=== PATIENT | male | born 1950 | race Caucasian/White ===

== ENCOUNTER 2020-12-22 10:58 | Inpatient (IN) | payer BC, MEDICARE ==
[2020-12-22] MEDS ORDERED: Diltiazem 50 MG/10 ML SDV IVPUSH ONE ×2 (11:32→12:48)
[2020-12-22] MEDS: Sodium Chloride 0.9% 10 ML Syringe FLUSH PRN (11:47)
--- NOTE | 2020-12-22 12:01 | CR ---
Chest: Portable view of the chest was obtained. Comparison: No previous chest imaging is available. Heart size within normal limits. Lung markings are mildly increased raising the possibility of pulmonary vascular congestion. No alveolar type opacities are seen. Bony structures show nothing acute. Impression: 1. Questionable mild pulmonary vascular congestion. Please correlate with the patient's symptoms. 2. Nothing acute is otherwise seen. Diagnostic code #3
--- NOTE | 2020-12-22 12:50 | EDM.PDOC ---
ED HPI GENERAL MEDICAL PROBLEM - General Chief Complaint: Cardiovascular Problem Stated Complaint: CHEST PAIN/UNABLE TO URINATE/CONSTIPATION Time Seen by Provider: 12/22/20 11:22 Source of Information: Reports: Patient, RN Notes Reviewed - History of Present Illness INITIAL COMMENTS - FREE TEXT/NARRATIVE: 70 yr old male comes in with dyspnea, severe with any type of exertion. This started about a month ago, has become much worse the last several days. He has no chest pain. His feet, ankles and lower legs have become edematous this past week. No current cough, fever or chills. He thinks he may have had covid last April. Has not been vaccinated. No known hx of heart, lung or other known medical problems. Abdomen Pain Score (Numeric/FACES): 5 - Related Data Allergies Allergy/AdvReac Type Severity Reaction Status Date / Time No Known Allergies Allergy Verified 12/22/20 11:11 Home Meds: Home Meds . [No Known Home Meds] 12/22/20 [History] Past Medical History Cardiovascular History: Reports: Other (See Below) Other Cardiovascular History: hemachromatosis - Past Surgical History Musculoskeletal Surgical History: Reports: Knee Replacement Social & Family History - Tobacco Use Tobacco Use Status *Q: Former Tobacco User Used Tobacco, but Quit: Yes Month/Year Tobacco Last Used: "long time ago" - Caffeine Use Caffeine Use: Reports: Coffee - Recreational Drug Use Recreational Drug Use: No ED ROS GENERAL - Review of Systems Review Of Systems: See Below Constitutional: Denies: Fever, Chills, Diaphoresis HEENT: Reports: No Symptoms Respiratory: Reports: Shortness of Breath, Cough (occasional) Cardiovascular: Denies: Chest Pain Endocrine: Reports: Fatigue GI/Abdominal: Denies: Abdominal Pain, Nausea, Vomiting Musculoskeletal: Reports: Other (fluid retention lower legs) Skin: Reports: No Symptoms Neurological: Denies: Trouble Speaking, Weakness ED EXAM, GENERAL - Physical Exam Exam: See Below General Appearance: Alert, Mild Distress Eye Exam: Bilateral Eye: PERRL Head: Atraumatic Neck: Supple Respiratory/Chest: Respiratory Distress (mild tachypnea), Rales (mild bilat bases). No: Rhonchi, Wheezing Cardiovascular: Irregularly Irregular GI/Abdominal: Soft, Non-Tender, Distended Back Exam: No: CVA Tenderness (L), CVA Tenderness (R) Extremities: Pedal Edema (moderate bilat) Neurological: Alert, Oriented, No Motor/Sensory Deficits Skin Exam: Warm, Dry, Normal Color #1 Interpretation EKG Date: 12/22/20 Rhythm: A-Fib P-Wave: Absent QRS: Other (q waves inf. leads) ST-T: Normal Course - Vital Signs Last Recorded V/S: Last Vital Signs Temp 96.9 F 12/22/20 11:08 Pulse 151 H 12/22/20 11:08 Resp 22 H 12/22/20 11:08 BP 159/119 H 12/22/20 11:08 Pulse Ox 99 12/22/20 11:08 - Orders/Labs/Meds Orders: Active Orders 24 hr Category Date Time Status EKG 12 Lead [EKG Documentation Completion] [RC] STAT Care 12/22/20 11:13 Active Peripheral IV Care [RC] . DIRECTED Care 12/22/20 11:24 Active CORONAVIRUS COVID-19 MANJULA [MOLEC] Stat Lab 12/22/20 12:49 Ordered INR,PT,PROTHROMBIN TIME [COAG] Stat Lab 12/22/20 12:30 Received Diltiazem [Cardizem] 100 mg Med 12/22/20 13:00 Active Sodium Chloride 0.9% [Normal Saline] 100 ml IV TITRATE Sodium Chloride 0.9% [Saline Flush] Med 12/22/20 11:23 Active 10 ml FLUSH ASDIRECTED PRN Peripheral IV Insertion Adult [OM.PC] Stat Oth 12/22/20 11:24 Ordered Medication Orders Diltiazem HCl 100 mg/ Sodium (Chloride) 100 mls @ 5 mls/hr IV TITRATE JEMIMA; Protocol Sodium Chloride (Sodium Chloride 0.9% 10 Ml Syringe) 10 ml FLUSH ASDIRECTED PRN PRN Reason: Keep Vein Open Last Admin: 12/22/20 11:47 Dose: 10 ml Documented by: RICHARDSON Labs: Laboratory Tests 12/22/20 12/22/20 12/22/20 Range/Units 11:40 11:40 11:40 WBC 9.61 H (4.23-9.07) K/mm3 RBC 4.85 (4.63-6.08) M/mm3 Hgb 15.1 (13.7-17.5) gm/dl Hct 46.9 (40.1-51.0) % MCV 96.7 H (79.0-92.2) fl MCH 31.1 (25.7-32.2) pg MCHC 32.2 (32.2-35.5) g/dl RDW Std Deviation 50.4 H (35.1-43.9) fL Plt Count 217 (163-337) K/mm3 MPV 10.4 (9.4-12.3) fl Neut % (Auto) 72.4 H (34.0-67.9) % Lymph % (Auto) 15.6 L (21.8-53.1) % [place] % (Auto) 10.4 (5.3-12.2) % Eos % (Auto) 0.9 (0.8-7.0) Baso % (Auto) 0.5 (0.1-1.2) % Neut # (Auto) 6.95 H (1.78-5.38) K/mm3 Lymph # (Auto) 1.50 (1.32-3.57) K/mm3 [place] # (Auto) 1.00 H (0.30-0.82) K/mm3 Eos # (Auto) 0.09 (0.04-0.54) K/mm3 Baso # (Auto) 0.05 (0.01-0.08) K/mm3 Manual Slide Review Normal smear Sodium 143 (136-145) mEq/L Potassium 4.9 (3.5-5.1) mEq/L Chloride 106 (98-107) mEq/L Carbon Dioxide 24 (21-32) mEq/L Anion Gap 17.9 H (5-15) BUN 20 H (7-18) mg/dL Creatinine 1.4 H (0.7-1.3) mg/dL Est Cr Clr Drug Dosing 48.18 mL/min Estimated GFR (MDRD) 50 (>60) mL/min BUN/Creatinine Ratio 14.3 (14-18) Glucose 118 H (70-99) mg/dL Calcium 9.2 (8.5-10.1) mg/dL Total Bilirubin 1.1 H (0.2-1.0) mg/dL AST 30 (15-37) U/L ALT 28 (16-63) U/L Alkaline Phosphatase 73 (46-116) U/L Troponin I 0.033 (0.00-0.056) ng/mL NT-Pro-B Natriuret Pep 5844 H (0-125) pg/mL Total Protein 8.1 (6.4-8.2) g/dl Albumin 3.8 (3.4-5.0) g/dl Globulin 4.3 gm/dL Albumin/Globulin Ratio 0.9 L (1-2) Meds: Medications Generic Name Dose Route Start Last Admin Trade Name Freq PRN Reason Stop Dose Admin Diltiazem HCl 100 mg/ Sodium 100 mls @ 5 mls/hr 12/22/20 13:00 Chloride IV TITRATE JEMIMA Protocol 5 MG/HR Sodium Chloride 10 ml 12/22/20 11:23 12/22/20 11:47 Sodium Chloride 0.9% 10 Ml Syringe FLUSH 10 ml ASDIRECTED PRN Administration Keep Vein Open Discontinued Medications Generic Name Dose Route Start Last Admin Trade Name Freq PRN Reason Stop Dose Admin Diltiazem HCl 20 mg 12/22/20 11:32 12/22/20 11:46 Diltiazem 50 Mg/10 Ml Sdv IVPUSH 12/22/20 11:33 20 mg ONETIME ONE Administration Diltiazem HCl 10 mg 12/22/20 12:48 Diltiazem 50 Mg/10 Ml Sdv IVPUSH 12/22/20 12:49 ONETIME ONE Departure - Departure Time of Disposition: 13:08 Disposition: Admitted As Inpatient 67 Condition: Fair Clinical Impression: Atrial fibrillation with RVR, Renal insufficiency CHF (congestive heart failure) Qualifiers: Heart failure type: unspecified Heart failure chronicity: acute Qualified Code(s): I50.9 - Heart failure, unspecified Referrals: PCP,None [Primary Care Provider] - Forms: ED Department Discharge Sepsis Event Note (ED) - Evaluation Sepsis Screening Result: No Definite Risk - Focused Exam Vital Signs: Vital Signs Temp Pulse Resp BP Pulse Ox 12/22/20 11:08 96.9 F 151 H 22 H 159/119 H 99 ED Communication - Discussed Case With (1) Discussed Case With (1): Admitting Provider (Dr Roe, decision to admit at about 13:00.) - My Orders Last 24 Hours: My Active Orders 12/22/20 11:13 EKG 12 Lead [EKG Documentation Completion] [RC] STAT 12/22/20 11:23 Sodium Chloride 0.9% [Saline Flush] 10 ml FLUSH ASDIRECTED PRN 12/22/20 11:24 Peripheral IV Care [RC] . DIRECTED Peripheral IV Insertion Adult [OM.PC] Stat 12/22/20 12:30 INR,PT,PROTHROMBIN TIME [COAG] Stat 12/22/20 12:49 CORONAVIRUS COVID-19 MANJULA [MOLEC] Stat 12/22/20 13:00 Diltiazem [Cardizem] 100 mg Sodium Chloride 0.9% [Normal Saline] 100 ml IV TITRATE - Assessment/Plan Last 24 Hours: My Active Orders 12/22/20 11:13 EKG 12 Lead [EKG Documentation Completion] [RC] STAT 12/22/20 11:23 Sodium Chloride 0.9% [Saline Flush] 10 ml FLUSH ASDIRECTED PRN 12/22/20 11:24 Peripheral IV Care [RC] . DIRECTED Peripheral IV Insertion Adult [OM.PC] Stat 12/22/20 12:30 INR,PT,PROTHROMBIN TIME [COAG] Stat 12/22/20 12:49 CORONAVIRUS COVID-19 MANJULA [MOLEC] Stat 12/22/20 13:00 Diltiazem [Cardizem] 100 mg Sodium Chloride 0.9% [Normal Saline] 100 ml IV TITRATE
[2020-12-22] MEDS ORDERED: Diltiazem 100 MG in Sodium Chloride 0.9% 100 ML IV SCH (13:00)
[2020-12-22] MEDS ORDERED: Sodium Chloride 0.9% 10 ML Syringe FLUSH PRN (13:29)
[2020-12-22] MEDS ORDERED: Ondansetron 4 MG Tab.DIS PO PRN (13:32)
[2020-12-22] MEDS ORDERED: Acetaminophen 325 MG Tab PO PRN (13:32)
[2020-12-22] MEDS ORDERED: Ondansetron 4 MG/2 ML SDV IV PRN (13:32)
--- NOTE | 2020-12-22 13:41 | PCM.HP.2 ---
H&P History of Present Illness - General Date of Service: 12/22/20 Admit Problem/Dx: Admission Diagnosis/Problem Admission Diagnosis/Problem Atrial fibrillation with rapid ventricular response Source of Information: Patient, Family, Provider - History of Present Illness Initial Comments - Free Text/Narative: Patient is a 70-year-old male with a past medical history as listed below who presents to the [facility] emergency department with his and daughter due to a chief complaint of shortness of breath. Patient has been experiencing progressive shortness of breath since a recent golf tournament. He was not walking the course that day but began feeling sh ortness of breath with an occasional heaviness within the chest. He denies any pain or pleurisy. He has not had any similar past president. Since that day, walking even the shortest distances makes him very short of breath and he has to sit down to catch his breath. He sometimes appears as if he is struggling according to his . It is gotten to the point where he is not able to walk more than 20 feet without becoming very symptomatic. He denies any lightheadedness/dizziness, change in vision, neurologic deficits, chest discomfort as noted above, nausea/vomiting, abdominal discomfort or di fficulties with voiding. He has noted significant increase in lower extremity edema especially over the past 3 days. He is seeing the indentations of his socks. Again, he has never experienced any similar past president of symptoms. He presented today due to becoming very concerned regarding his shortness of breath. Upon initial evaluation he was noted to be in atrial fibrillation with rapid ve ntricular response with a heart rate of above 160 bpm. This was responsive to 20 mg IV push of Cardizem. Physical examination was notable for systemic volume overload. Chest x-ray also noted pulmonary vascular congestion as well as left-sided pleural effusion. Patient was referred to the internal medicine service for new diagnosis of atrial fibrillation with rapid ventricular response. 14 point review of systems was reviewed with the patient and his family and only pertinent for the above information. CODE STATUS: Reviewed and he wishes to be DNR/DNI. Abdomen Pain Score (Numeric/FACES): 5 - Related Data Allergies/Adverse Reactions: Allergies Allergy/AdvReac Type Severity Reaction Status Date / Time No Known Allergies Allergy Verified 12/22/20 11:11 Home Medications: Home Meds . [No Known Home Meds] 12/22/20 [History] Past Medical History Cardiovascular History: Reports: Other (See Below) Other Cardiovascular History: hemachromatosis previously requiring phlebotomy. - Past Surgical History Musculoskeletal Surgical History: Reports: Knee Replacement Social & Family History - Tobacco Use Tobacco Use Status *Q: Former Tobacco User Used Tobacco, but Quit: Yes Month/Year Tobacco Last Used: "long time ago" - Caffeine Use Caffeine Use: Reports: Coffee - Recreational Drug Use Recreational Drug Use: No H&P Review of Systems - Review of Systems: Review Of Systems: Comprehensive ROS is negative, except as noted in HPI. Exam - Exam Exam: See Below - Vital Signs Vital Signs: Last Vital Signs Temp 96.9 F 12/22/20 11:08 Pulse 151 H 12/22/20 11:08 Resp 22 H 12/22/20 11:08 BP 159/119 H 12/22/20 11:08 Pulse Ox 99 12/22/20 11:08 Weight: 254 lb - Exam Physical Exam Comments:: General: Awake and alert, in no apparent distress. Nontoxic-appearing. HEENT: Normocephalic, atraumatic. Extra ocular muscles intact. Pupils equal and reactive to light. Nares are patent. Oropharynx clear without erythema or exudate. Tongue is midline. Neck: Supple without lymphadenopathy. No goiter. Trachea midline. Heart: Irregular rate and rhythm with tachycardia. S1 and S2 heard without murmur or extrasystoles. Lungs: Clear to auscultation bilaterally. No wheezing, rales, rhonchi. Diminished breath sounds at left base Abdomen: Overweight, soft, nontender, nondistended. Positive bowel sounds. No CVA tenderness. No suprapubic tenderness. Extremities: Warm and perfused. No clubbing, cyanosis. Pitting edema noted in both lower extremities. Integument: No obvious rash or jaundice. No lymphadenopathy. Very tanned. Neurologic: Cranial nerves II through XII grossly intact. No obvious gross motor or sensory deficits. Psychiatric: Normal mood and affect. - Patient Data Lab Results Last 24 hrs: Laboratory Results - last 24 hr 12/22/20 12/22/20 12/22/20 Range/Units 11:40 11:40 11:40 WBC 9.61 H (4.23-9.07) K/mm3 RBC 4.85 (4.63-6.08) M/mm3 Hgb 15.1 (13.7-17.5) gm/dl Hct 46.9 (40.1-51.0) % MCV 96.7 H (79.0-92.2) fl MCH 31.1 (25.7-32.2) pg MCHC 32.2 (32.2-35.5) g/dl RDW Std Deviation 50.4 H (35.1-43.9) fL Plt Count 217 (163-337) K/mm3 MPV 10.4 (9.4-12.3) fl Neut % (Auto) 72.4 H (34.0-67.9) % Lymph % (Auto) 15.6 L (21.8-53.1) % [place] % (Auto) 10.4 (5.3-12.2) % Eos % (Auto) 0.9 (0.8-7.0) Baso % (Auto) 0.5 (0.1-1.2) % Neut # (Auto) 6.95 H (1.78-5.38) K/mm3 Lymph # (Auto) 1.50 (1.32-3.57) K/mm3 [place] # (Auto) 1.00 H (0.30-0.82) K/mm3 Eos # (Auto) 0.09 (0.04-0.54) K/mm3 Baso # (Auto) 0.05 (0.01-0.08) K/mm3 Manual Slide Review Normal smear Sodium 143 (136-145) mEq/L Potassium 4.9 (3.5-5.1) mEq/L Chloride 106 (98-107) mEq/L Carbon Dioxide 24 (21-32) mEq/L Anion Gap 17.9 H (5-15) BUN 20 H (7-18) mg/dL Creatinine 1.4 H (0.7-1.3) mg/dL Est Cr Clr Drug Dosing 48.18 mL/min Estimated GFR (MDRD) 50 (>60) mL/min BUN/Creatinine Ratio 14.3 (14-18) Glucose 118 H (70-99) mg/dL Calcium 9.2 (8.5-10.1) mg/dL Total Bilirubin 1.1 H (0.2-1.0) mg/dL AST 30 (15-37) U/L ALT 28 (16-63) U/L Alkaline Phosphatase 73 (46-116) U/L Troponin I 0.033 (0.00-0.056) ng/mL NT-Pro-B Natriuret Pep 5844 H (0-125) pg/mL Total Protein 8.1 (6.4-8.2) g/dl Albumin 3.8 (3.4-5.0) g/dl Globulin 4.3 gm/dL Albumin/Globulin Ratio 0.9 L (1-2) Result Diagrams: 12/22/20 11:40 12/22/20 11:40 #1 Interpretation EKG Date: 12/22/20 Rhythm: A-Fib (With rapid ventricular response.) Sepsis Event Note - Evaluation Sepsis Screening Result: No Definite Risk - Focused Exam Vital Signs: Vital Signs Temp Pulse Resp BP Pulse Ox 12/22/20 11:08 96.9 F 151 H 22 H 159/119 H 99 Problem List Initiated/Reviewed/Updated: Yes Orders Last 24hrs: Active Orders 24 hr Category Date Time Status Patient Status [ADT] Routine ADT 12/22/20 13:29 Active Cardiac Monitoring [RC] CONTINUOUS Care 12/22/20 13:31 Active EKG 12 Lead [EKG Documentation Completion] [RC] STAT Care 12/22/20 11:13 Active Height and Weight [RC] DAILY Care 12/22/20 13:29 Active Intake and Output [RC] QSHIFT Care 12/22/20 13:30 Active Oxygen Therapy [RC] PRN Care 12/22/20 13:29 Active Peripheral IV Care [RC] . DIRECTED Care 12/22/20 11:24 Active Pulse Oximetry [RC] PRN Care 12/22/20 13:31 Active RT Aerosol Therapy [RC] ASDIRECTED Care 12/22/20 13:33 Ordered Up ad Lola [RC] ASDIRECTED Care 12/22/20 13:29 Active VTE/DVT Education [RC] PER UNIT ROUTINE Care 12/22/20 13:29 Active Vital Signs [RC] Q4H Care 12/22/20 13:29 Active Respiratory Care Assess and Treatment [CONS] Routine Cons 12/22/20 13:29 Activ e 2 Gram Sodium Diet [DIET] Diet 12/22/20 Dinner Active CORONAVIRUS COVID-19 MANJULA [MOLEC] Stat Lab 12/22/20 13:08 Ordered INR,PT,PROTHROMBIN TIME [COAG] Stat Lab 12/22/20 12:30 Received Acetaminophen [TylenoL] Med 12/22/20 13:32 Ordered 650 mg PO Q4H PRN Albuterol/Ipratropium [DuoNeb 3.0-0.5 MG/3 ML] Med 12/22/20 13:32 Ordered 3 ml NEB Q4H PRN Apixaban [Eliquis] Med 12/22/20 21:00 Ordered 5 mg PO BID Diltiazem IR [Cardizem] Med 12/22/20 13:45 Ordered 30 mg PO Q6HR Diltiazem [Cardizem] 100 mg Med 12/22/20 13:00 Active Sodium Chloride 0.9% [Normal Saline] 100 ml IV TITRATE Docusate Sodium [Colace] Med 12/22/20 13:32 Ordered 100 mg PO BID PRN Furosemide [Lasix] Med 12/22/20 13:45 Ordered 40 mg IVPUSH BID Ondansetron [Zofran ODT] Med 12/22/20 13:32 Ordered 4 mg PO Q4H PRN Ondansetron [Zofran] Med 12/22/20 13:32 Ordered 4 mg IV Q4H PRN Sodium Chloride 0.9% [Saline Flush] Med 12/22/20 11:23 Active 10 ml FLUSH ASDIRECTED PRN Sodium Chloride 0.9% [Saline Flush] Med 12/22/20 13:29 Active 10 ml FLUSH ASDIRECTED PRN polyethylene glycoL 3350 [MiraLAX] Med 12/22/20 13:32 Ordered 17 gm PO DAILY PRN Peripheral IV Insertion Adult [OM.PC] Stat Oth 12/22/20 11:24 Ordered Saline Lock Insert [OM.PC] Routine Oth 12/22/20 13:29 Ordered Resuscitation Status Routine Resus Stat 12/22/20 13:29 Ordered Medication Orders Acetaminophen (Acetaminophen 325 Mg Tab) 650 mg PO Q4H PRN PRN Reason: Pain (Mild 1-3)/fever Albuterol/Ipratropium (Albuterol/Ipratropium 3.0-0.5 Mg/3 Ml Neb Soln) 3 ml NEB Q4H PRN PRN Reason: Shortness Of Breath/wheezing Apixaban (Apixaban 5 Mg Tab) 5 mg PO BID JEMIMA Diltiazem HCl (Diltiazem Ir 30 Mg Tab) 30 mg PO Q6HR JEMIMA Docusate Sodium (Docusate Sodium 100 Mg Cap) 100 mg PO BID PRN PRN Reason: Constipation Furosemide (Furosemide 40 Mg/4 Ml Vial) 40 mg IVPUSH BID JEMIMA Diltiazem HCl 100 mg/ Sodium (Chloride) 100 mls @ 5 mls/hr IV TITRATE JEMIMA; Protocol Last Titration: 12/22/20 13:03 Dose: 5 mg/hr, 5 mls/hr Documented by: Admin: 12/22/20 13:03 Dose: 5 mg/hr, 5 mls/hr Documented by: RICHARDSON Ondansetron HCl (Ondansetron 4 Mg Tab.Dis) 4 mg PO Q4H PRN PRN Reason: nausea, able to take PO Ondansetron HCl (Ondansetron 4 Mg/2 Ml Sdv) 4 mg IV Q4H PRN PRN Reason: Nausea/Vomiting Polyethylene Glycol (Polyethylene Glycol 3350 Powder 17 Gm Packet) 17 gm PO DAILY PRN PRN Reason: Constipation Sodium Chloride (Sodium Chloride 0.9% 10 Ml Syringe) 10 ml FLUSH ASDIRECTED PRN PRN Reason: Keep Vein Open Last Admin: 12/22/20 11:47 Dose: 10 ml Documented by: RICHARDSON Sodium Chloride (Sodium Chloride 0.9% 10 Ml Syringe) 10 ml FLUSH ASDIRECTED PRN PRN Reason: Keep Vein Open Assessment/Plan Comment:: 70-year-old gentleman with a past medical history notable for hemochromatosis previously requiring phlebotomy, who presents to the [facility] emergency department with his family due to a chief complaint of shortness of breath, found to be in new atrial fibrillation with rapid ventricular response. 1. Atrial fibrillation with rapid ventricular response. Admit to the hospitalist service for further management. Continue Cardizem infusion. We will add Cardizem p.o. and titrate off his Cardizem infusion based upon blood pressure and heart rate. Ultimate plan to have him converted to Cardizem CD at the time of discharge. Monitor on telemetry. Will order an echocardiogram. Systemic anticoagulation discussion was held with him and his family. Risks and benefits of being on anticoagulation in general were discussed as well as those specific to agents such as Coumadin, Eliquis and Xarelto. After an informed discussion the patient has chosen Eliquis. Will initiate 5 mg twice daily. Follow-up with cardiology on an outpatient basis. 2. Pulmonary vascular congestion with small left-sided pleural effusion. Likely secondary to continuous rapid ventricular rate. Echocardiography to assess ejection fraction. Daily weights per standing scale only. Lasix IV 40 mg twice daily. Intermittent check of labs with replacement of electrolytes as necessary. 3. 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 Patient with an acceptable hemoglobin. We will check iron studies. Recommend follow-up with hematology on an outpatient basis. Check hemoglobin A1c. CODE STATUS: DNR/DNI. DVT prophylaxis; systemic anticoagulation with Eliquis. - Mortality Measure Prognosis:: Good
[2020-12-22] MEDS ORDERED: Diltiazem IR 30 MG Tab PO SCH ×2 (13:45→20:00)
[2020-12-22 14:03] LABS: HEMOGLOBIN A1C 6.6 %
[2020-12-22] MEDS: Furosemide 40 MG/4 ML VIAL IVPUSH SCH ×2 (14:23→14:25)
[2020-12-22] MEDS: Polyethylene Glycol 3350 Powder 17 GM Packet PO PRN (14:23)
[2020-12-22] MEDS: Diltiazem IR 60 MG Tab PO SCH (20:03)
[2020-12-22] MEDS: Apixaban 5 MG Tab PO SCH (20:06)
[2020-12-23] MEDS: Diltiazem IR 60 MG Tab PO SCH ×2 (01:35→08:03)
[2020-12-23] MEDS: Furosemide 40 MG/4 ML VIAL IVPUSH SCH ×2 (05:53→14:06)
[2020-12-23] MEDS: Apixaban 5 MG Tab PO SCH ×2 (08:03→20:01)
--- NOTE | 2020-12-23 08:34 | PCM.PN ---
- General Info Date of Service: 12/23/20 Admission Dx/Problem (Free Text): Admission Diagnosis/Problem Admission Diagnosis/Problem Atrial fibrillation with rapid ventricular response Subjective Update: Patient weaned off diltiazem infusion overnight. Oral diltiazem increased to 60 mg every 6 hours for last night bedtime dose. Remains in the 80s to 90s while sleeping. 90s to 110's while resting and while ambulating for about 75 feet. Increases heart rate to 120-140 with ambulation this morning. Becomes short of breath after 100 feet of ambulation. Sometimes lightheaded when rising from a supine position. Denies any chest pain, chest pressure or pleurisy. - Patient Data Vitals - Most Recent: Last Vital Signs Temp 98.6 F 12/23/20 00:00 Pulse 83 12/23/20 02:00 Resp 18 12/23/20 00:00 BP 108/76 12/23/20 02:00 Pulse Ox 97 12/23/20 00:00 Weight - Most Recent: 247 lb 4.8 oz I&O - Last 24 Hours: Intake & Output 12/22/20 12/23/20 12/23/20 22:59 06:59 14:59 Intake Total 500 315 Output Total 1700 150 Balance -1200 165 Lab Results Last 24 Hours: Laboratory Results - last 24 hr 12/22/20 12/22/20 12/22/20 Range/Units 11:40 11:40 11:40 WBC 9.61 H (4.23-9.07) K/mm3 RBC 4.85 (4.63-6.08) M/mm3 Hgb 15.1 (13.7-17.5) gm/dl Hct 46.9 (40.1-51.0) % MCV 96.7 H (79.0-92.2) fl MCH 31.1 (25.7-32.2) pg MCHC 32.2 (32.2-35.5) g/dl RDW Std Deviation 50.4 H (35.1-43.9) fL Plt Count 217 (163-337) K/mm3 MPV 10.4 (9.4-12.3) fl Neut % (Auto) 72.4 H (34.0-67.9) % Lymph % (Auto) 15.6 L (21.8-53.1) % Dyer % (Auto) 10.4 (5.3-12.2) % Eos % (Auto) 0.9 (0.8-7.0) Baso % (Auto) 0.5 (0.1-1.2) % Neut # (Auto) 6.95 H (1.78-5.38) K/mm3 Lymph # (Auto) 1.50 (1.32-3.57) K/mm3 Dyer # (Auto) 1.00 H (0.30-0.82) K/mm3 Eos # (Auto) 0.09 (0.04-0.54) K/mm3 Baso # (Auto) 0.05 (0.01-0.08) K/mm3 Manual Slide Review Normal smear PT (9.7-12.0) SECONDS INR Sodium 143 (136-145) mEq/L Potassium 4.9 (3.5-5.1) mEq/L Chloride 106 (98-107) mEq/L Carbon Dioxide 24 (21-32) mEq/L Anion Gap 17.9 H (5-15) BUN 20 H (7-18) mg/dL Creatinine 1.4 H (0.7-1.3) mg/dL Est Cr Clr Drug Dosing 48.18 mL/min Estimated GFR (MDRD) 50 (>60) mL/min BUN/Creatinine Ratio 14.3 (14-18) Glucose 118 H (70-99) mg/dL Hemoglobin A1c ( - 5.6) % Calcium 9.2 (8.5-10.1) mg/dL Iron (65-175) ug/dL TIBC (100-400) ug/dL % Saturation (20-55) % Transferrin (202-364) mg/dL Total Bilirubin 1.1 H (0.2-1.0) mg/dL AST 30 (15-37) U/L ALT 28 (16-63) U/L Alkaline Phosphatase 73 (46-116) U/L Troponin I 0.033 (0.00-0.056) ng/mL NT-Pro-B Natriuret Pep 5844 H (0-125) pg/mL Total Protein 8.1 (6.4-8.2) g/dl Albumin 3.8 (3.4-5.0) g/dl Globulin 4.3 gm/dL Albumin/Globulin Ratio 0.9 L (1-2) TSH 3rd Generation (0.358-3.74) uIU/mL SARS-CoV-2 RNA (MANJULA) (NEGATIVE) 12/22/20 12/22/20 12/22/20 Range/Units 11:40 12:30 12:51 WBC (4.23-9.07) K/mm3 RBC (4.63-6.08) M/mm3 Hgb (13.7-17.5) gm/dl Hct (40.1-51.0) % MCV (79.0-92.2) fl MCH (25.7-32.2) pg MCHC (32.2-35.5) g/dl RDW Std Deviation (35.1-43.9) fL Plt Count (163-337) K/mm3 MPV (9.4-12.3) fl Neut % (Auto) (34.0-67.9) % Lymph % (Auto) (21.8-53.1) % Dyer % (Auto) (5.3-12.2) % Eos % (Auto) (0.8-7.0) Baso % (Auto) (0.1-1.2) % Neut # (Auto) (1.78-5.38) K/mm3 Lymph # (Auto) (1.32-3.57) K/mm3 Dyer # (Auto) (0.30-0.82) K/mm3 Eos # (Auto) (0.04-0.54) K/mm3 Baso # (Auto) (0.01-0.08) K/mm3 Manual Slide Review PT 13.0 H (9.7-12.0) SECONDS INR 1.22 Sodium (136-145) mEq/L Potassium (3.5-5.1) mEq/L Chloride (98-107) mEq/L Carbon Dioxide (21-32) mEq/L Anion Gap (5-15) BUN (7-18) mg/dL Creatinine (0.7-1.3) mg/dL Est Cr Clr Drug Dosing mL/min Estimated GFR (MDRD) (>60) mL/min BUN/Creatinine Ratio (14-18) Glucose (70-99) mg/dL Hemoglobin A1c 6.6 H ( - 5.6) % Calcium (8.5-10.1) mg/dL Iron (65-175) ug/dL TIBC (100-400) ug/dL % Saturation (20-55) % Transferrin (202-364) mg/dL Total Bilirubin (0.2-1.0) mg/dL AST (15-37) U/L ALT (16-63) U/L Alkaline Phosphatase (46-116) U/L Troponin I (0.00-0.056) ng/mL NT-Pro-B Natriuret Pep (0-125) pg/mL Total Protein (6.4-8.2) g/dl Albumin (3.4-5.0) g/dl Globulin gm/dL Albumin/Globulin Ratio (1-2) TSH 3rd Generation (0.358-3.74) uIU/mL SARS-CoV-2 RNA (MANJULA) Negative (NEGATIVE) 12/23/20 12/23/20 Range/Units 05:25 05:25 WBC (4.23-9.07) K/mm3 RBC (4.63-6.08) M/mm3 Hgb (13.7-17.5) gm/dl Hct (40.1-51.0) % MCV (79.0-92.2) fl MCH (25.7-32.2) pg MCHC (32.2-35.5) g/dl RDW Std Deviation (35.1-43.9) fL Plt Count (163-337) K/mm3 MPV (9.4-12.3) fl Neut % (Auto) (34.0-67.9) % Lymph % (Auto) (21.8-53.1) % Dyer % (Auto) (5.3-12.2) % Eos % (Auto) (0.8-7.0) Baso % (Auto) (0.1-1.2) % Neut # (Auto) (1.78-5.38) K/mm3 Lymph # (Auto) (1.32-3.57) K/mm3 Dyer # (Auto) (0.30-0.82) K/mm3 Eos # (Auto) (0.04-0.54) K/mm3 Baso # (Auto) (0.01-0.08) K/mm3 Manual Slide Review PT (9.7-12.0) SECONDS INR Sodium (136-145) mEq/L Potassium (3.5-5.1) mEq/L Chloride (98-107) mEq/L Carbon Dioxide (21-32) mEq/L Anion Gap (5-15) BUN (7-18) mg/dL Creatinine (0.7-1.3) mg/dL Est Cr Clr Drug Dosing mL/min Estimated GFR (MDRD) (>60) mL/min BUN/Creatinine Ratio (14-18) Glucose (70-99) mg/dL Hemoglobin A1c ( - 5.6) % Calcium (8.5-10.1) mg/dL Iron 46 L (65-175) ug/dL TIBC 281 (100-400) ug/dL % Saturation 16 L (20-55) % Transferrin 225 (202-364) mg/dL Total Bilirubin (0.2-1.0) mg/dL AST (15-37) U/L ALT (16-63) U/L Alkaline Phosphatase (46-116) U/L Troponin I (0.00-0.056) ng/mL NT-Pro-B Natriuret Pep (0-125) pg/mL Total Protein (6.4-8.2) g/dl Albumin (3.4-5.0) g/dl Globulin gm/dL Albumin/Globulin Ratio (1-2) TSH 3rd Generation 5.061 H (0.358-3.74) uIU/mL SARS-CoV-2 RNA (MANJULA) (NEGATIVE) Med Orders - Current: Current Medications Acetaminophen (Acetaminophen 325 Mg Tab) 650 mg PO Q4H PRN PRN Reason: Pain (Mild 1-3)/fever Albuterol/Ipratropium (Albuterol/Ipratropium 3.0-0.5 Mg/3 Ml Neb Soln) 3 ml NEB Q4H PRN PRN Reason: Shortness Of Breath/wheezing Apixaban (Apixaban 5 Mg Tab) 5 mg PO BID [facility] Last Admin: 12/23/20 08:03 Dose: 5 mg Documented by: Diltiazem HCl (Diltiazem Ir 60 Mg Tab) 60 mg PO Q6H [facility] Last Admin: 12/23/20 08:03 Dose: 60 mg Documented by: Docusate Sodium (Docusate Sodium 100 Mg Cap) 100 mg PO BID PRN PRN Reason: Constipation Furosemide (Furosemide 40 Mg/4 Ml Vial) 40 mg IVPUSH BIDDIURETIC JEMIMA Last Admin: 12/23/20 05:53 Dose: 40 mg Documented by: Diltiazem HCl 100 mg/ Sodium (Chloride) 100 mls @ 5 mls/hr IV TITRATE JEMIMA; Protocol Last Titration: 12/23/20 00:39 Dose: 0 mg/hr, 0 mls/hr Documented by: Ondansetron HCl (Ondansetron 4 Mg Tab.Dis) 4 mg PO Q4H PRN PRN Reason: nausea, able to take PO Ondansetron HCl (Ondansetron 4 Mg/2 Ml Sdv) 4 mg IV Q4H PRN PRN Reason: Nausea/Vomiting Polyethylene Glycol (Polyethylene Glycol 3350 Powder 17 Gm Packet) 17 gm PO DAILY PRN PRN Reason: Constipation Last Admin: 12/22/20 14:23 Dose: 17 gm Documented by: Sodium Chloride (Sodium Chloride 0.9% 10 Ml Syringe) 10 ml FLUSH ASDIRECTED PRN PRN Reason: Keep Vein Open Last Admin: 12/22/20 11:47 Dose: 10 ml Documented by: Sodium Chloride (Sodium Chloride 0.9% 10 Ml Syringe) 10 ml FLUSH ASDIRECTED PRN PRN Reason: Keep Vein Open Last Admin: 12/22/20 14:24 Dose: 10 ml Documented by: Discontinued Medications Diltiazem HCl (Diltiazem 50 Mg/10 Ml Sdv) 20 mg IVPUSH ONETIME ONE Stop: 12/22/20 11:33 Last Admin: 12/22/20 11:46 Dose: 20 mg Documented by: Diltiazem HCl (Diltiazem 50 Mg/10 Ml Sdv) 10 mg IVPUSH ONETIME ONE Stop: 12/22/20 12:49 Last Admin: 12/22/20 12:59 Dose: 10 mg Documented by: Diltiazem HCl (Diltiazem Ir 30 Mg Tab) 30 mg PO Q6HR JEMIMA Last Admin: 12/22/20 14:23 Dose: 30 mg Documented by: Diltiazem HCl (Diltiazem Ir 30 Mg Tab) 30 mg PO Q6H JEMIMA - Exam Quality Assessment: DVT Prophylaxis (Eliquis) General: Alert, Cooperative Lungs: Normal Respiratory Effort (At rest), Decreased Breath Sounds (Left base.) Cardiovascular: Irregular Rhythm, Tachycardia GI/Abdominal Exam: Normal Bowel Sounds, Soft, Non-Tender Extremities: Pedal Edema Skin: Warm, Dry Neurological: No New Focal Deficit - Patient Data Lab Results Last 24 hrs: Laboratory Results - last 24 hr 12/22/20 12/22/20 12/22/20 Range/Units 11:40 11:40 11:40 WBC 9.61 H (4.23-9.07) K/mm3 RBC 4.85 (4.63-6.08) M/mm3 Hgb 15.1 (13.7-17.5) gm/dl Hct 46.9 (40.1-51.0) % MCV 96.7 H (79.0-92.2) fl MCH 31.1 (25.7-32.2) pg MCHC 32.2 (32.2-35.5) g/dl RDW Std Deviation 50.4 H (35.1-43.9) fL Plt Count 217 (163-337) K/mm3 MPV 10.4 (9.4-12.3) fl Neut % (Auto) 72.4 H (34.0-67.9) % Lymph % (Auto) 15.6 L (21.8-53.1) % Dyer % (Auto) 10.4 (5.3-12.2) % Eos % (Auto) 0.9 (0.8-7.0) Baso % (Auto) 0.5 (0.1-1.2) % Neut # (Auto) 6.95 H (1.78-5.38) K/mm3 Lymph # (Auto) 1.50 (1.32-3.57) K/mm3 Dyer # (Auto) 1.00 H (0.30-0.82) K/mm3 Eos # (Auto) 0.09 (0.04-0.54) K/mm3 Baso # (Auto) 0.05 (0.01-0.08) K/mm3 Manual Slide Review Normal smear PT (9.7-12.0) SECONDS INR Sodium 143 (136-145) mEq/L Potassium 4.9 (3.5-5.1) mEq/L Chloride 106 (98-107) mEq/L Carbon Dioxide 24 (21-32) mEq/L Anion Gap 17.9 H (5-15) BUN 20 H (7-18) mg/dL Creatinine 1.4 H (0.7-1.3) mg/dL Est Cr Clr Drug Dosing 48.18 mL/min Estimated GFR (MDRD) 50 (>60) mL/min BUN/Creatinine Ratio 14.3 (14-18) Glucose 118 H (70-99) mg/dL Hemoglobin A1c ( - 5.6) % Calcium 9.2 (8.5-10.1) mg/dL Iron (65-175) ug/dL TIBC (100-400) ug/dL % Saturation (20-55) % Transferrin (202-364) mg/dL Total Bilirubin 1.1 H (0.2-1.0) mg/dL AST 30 (15-37) U/L ALT 28 (16-63) U/L Alkaline Phosphatase 73 (46-116) U/L Troponin I 0.033 (0.00-0.056) ng/mL NT-Pro-B Natriuret Pep 5844 H (0-125) pg/mL Total Protein 8.1 (6.4-8.2) g/dl Albumin 3.8 (3.4-5.0) g/dl Globulin 4.3 gm/dL Albumin/Globulin Ratio 0.9 L (1-2) TSH 3rd Generation (0.358-3.74) uIU/mL SARS-CoV-2 RNA (MANJULA) (NEGATIVE) 12/22/20 12/22/20 12/22/20 Range/Units 11:40 12:30 12:51 WBC (4.23-9.07) K/mm3 RBC (4.63-6.08) M/mm3 Hgb (13.7-17.5) gm/dl Hct (40.1-51.0) % MCV (79.0-92.2) fl MCH (25.7-32.2) pg MCHC (32.2-35.5) g/dl RDW Std Deviation (35.1-43.9) fL Plt Count (163-337) K/mm3 MPV (9.4-12.3) fl Neut % (Auto) (34.0-67.9) % Lymph % (Auto) (21.8-53.1) % Dyer % (Auto) (5.3-12.2) % Eos % (Auto) (0.8-7.0) Baso % (Auto) (0.1-1.2) % Neut # (Auto) (1.78-5.38) K/mm3 Lymph # (Auto) (1.32-3.57) K/mm3 Dyer # (Auto) (0.30-0.82) K/mm3 Eos # (Auto) (0.04-0.54) K/mm3 Baso # (Auto) (0.01-0.08) K/mm3 Manual Slide Review PT 13.0 H (9.7-12.0) SECONDS INR 1.22 Sodium (136-145) mEq/L Potassium (3.5-5.1) mEq/L Chloride (98-107) mEq/L Carbon Dioxide (21-32) mEq/L Anion Gap (5-15) BUN (7-18) mg/dL Creatinine (0.7-1.3) mg/dL Est Cr Clr Drug Dosing mL/min Estimated GFR (MDRD) (>60) mL/min BUN/Creatinine Ratio (14-18) Glucose (70-99) mg/dL Hemoglobin A1c 6.6 H ( - 5.6) % Calcium (8.5-10.1) mg/dL Iron (65-175) ug/dL TIBC (100-400) ug/dL % Saturation (20-55) % Transferrin (202-364) mg/dL Total Bilirubin (0.2-1.0) mg/dL AST (15-37) U/L ALT (16-63) U/L Alkaline Phosphatase (46-116) U/L Troponin I (0.00-0.056) ng/mL NT-Pro-B Natriuret Pep (0-125) pg/mL Total Protein (6.4-8.2) g/dl Albumin (3.4-5.0) g/dl Globulin gm/dL Albumin/Globulin Ratio (1-2) TSH 3rd Generation (0.358-3.74) uIU/mL SARS-CoV-2 RNA (MANJULA) Negative (NEGATIVE) 12/23/20 12/23/20 Range/Units 05:25 05:25 WBC (4.23-9.07) K/mm3 RBC (4.63-6.08) M/mm3 Hgb (13.7-17.5) gm/dl Hct (40.1-51.0) % MCV (79.0-92.2) fl MCH (25.7-32.2) pg MCHC (32.2-35.5) g/dl RDW Std Deviation (35.1-43.9) fL Plt Count (163-337) K/mm3 MPV (9.4-12.3) fl Neut % (Auto) (34.0-67.9) % Lymph % (Auto) (21.8-53.1) % Dyer % (Auto) (5.3-12.2) % Eos % (Auto) (0.8-7.0) Baso % (Auto) (0.1-1.2) % Neut # (Auto) (1.78-5.38) K/mm3 Lymph # (Auto) (1.32-3.57) K/mm3 Dyer # (Auto) (0.30-0.82) K/mm3 Eos # (Auto) (0.04-0.54) K/mm3 Baso # (Auto) (0.01-0.08) K/mm3 Manual Slide Review PT (9.7-12.0) SECONDS INR Sodium (136-145) mEq/L Potassium (3.5-5.1) mEq/L Chloride (98-107) mEq/L Carbon Dioxide (21-32) mEq/L Anion Gap (5-15) BUN (7-18) mg/dL Creatinine (0.7-1.3) mg/dL Est Cr Clr Drug Dosing mL/min Estimated GFR (MDRD) (>60) mL/min BUN/Creatinine Ratio (14-18) Glucose (70-99) mg/dL Hemoglobin A1c ( - 5.6) % Calcium (8.5-10.1) mg/dL Iron 46 L (65-175) ug/dL TIBC 281 (100-400) ug/dL % Saturation 16 L (20-55) % Transferrin 225 (202-364) mg/dL Total Bilirubin (0.2-1.0) mg/dL AST (15-37) U/L ALT (16-63) U/L Alkaline Phosphatase (46-116) U/L Troponin I (0.00-0.056) ng/mL NT-Pro-B Natriuret Pep (0-125) pg/mL Total Protein (6.4-8.2) g/dl Albumin (3.4-5.0) g/dl Globulin gm/dL Albumin/Globulin Ratio (1-2) TSH 3rd Generation 5.061 H (0.358-3.74) uIU/mL SARS-CoV-2 RNA (MANJULA) (NEGATIVE) Result Diagrams: 12/22/20 11:40 12/22/20 11:40 Sepsis Event Note - Evaluation Sepsis Screening Result: No Definite Risk - Focused Exam Vital Signs: Vital Signs Temp Pulse Resp BP Pulse Ox 12/23/20 02:00 83 108/76 12/23/20 01:00 81 118/96 H 12/23/20 00:00 98.6 F 82 18 99/72 97 12/22/20 23:00 78 117/90 12/22/20 22:00 82 93/71 12/22/20 21:00 85 114/78 - Problem List Review Problem List Initiated/Reviewed/Updated: Yes - My Orders Last 24 Hours: My Active Orders 12/22/20 13:29 Height and Weight [RC] 0400 Oxygen Therapy [RC] PRN Up ad Lola [RC] ASDIRECTED VTE/DVT Education [RC] Vital Signs [RC] Q4HR Respiratory Care Assess and Treatment [CONS] Routine Sodium Chloride 0.9% [Saline Flush] 10 ml FLUSH ASDIRECTED PRN Saline Lock Insert [OM.PC] Routine Resuscitation Status Routine 12/22/20 13:30 Intake and Output [RC] 04,16 12/22/20 13:31 Cardiac Monitoring [RC] CONTINUOUS Pulse Oximetry [RC] PRN 12/22/20 13:32 Acetaminophen [TylenoL] 650 mg PO Q4H PRN Albuterol/Ipratropium [DuoNeb 3.0-0.5 MG/3 ML] 3 ml NEB Q4H PRN Docusate Sodium [Colace] 100 mg PO BID PRN Ondansetron [Zofran ODT] 4 mg PO Q4H PRN Ondansetron [Zofran] 4 mg IV Q4H PRN polyethylene glycoL 3350 [MiraLAX] 17 gm PO DAILY PRN 12/22/20 13:33 RT Aerosol Therapy [RC] ASDIRECTED 12/22/20 13:45 Furosemide [Lasix] 40 mg IVPUSH BIDDIURETIC 12/22/20 13:46 Echo 2D wo Cont [US] Stat 12/22/20 15:19 Patient Status [ADT] Routine 12/22/20 Dinner 2 Gram Sodium Diet [DIET] 12/22/20 20:00 Diltiazem IR [Cardizem] 60 mg PO Q6H 12/22/20 21:00 Apixaban [Eliquis] 5 mg PO BID 12/24/20 06:00 BASIC METABOLIC PANEL,BMP [CHEM] Routine - Plan Plan:: 70-year-old gentleman with a past medical history notable for hemochromatosis previously requiring phlebotomy, who presents to the [facility] emergency department with his family due to a chief complaint of shortness of breath, found to be in new atrial fibrillation with rapid ventricular response. 1. Atrial fibrillation with rapid ventricular response. Now weaned off Cardizem infusion. We will continue to titrate Cardizem p.o. and titrate. May require increased to 90 mg 3 times daily or 4 times daily. Ultimate plan to have him converted to Cardizem CD at the time of discharge. Monitor on telemetry. Echocardiogram pending. Systemic anticoagulation discussion was held with him and his family. Risks and benefits of being on anticoagulation in general were discussed as well as those specific to agents such as Coumadin, Eliquis and Xarelto. After an informed discussion the patient has chosen Eliquis. We will continue 5 mg twice a day. Follow-up with cardiology on an outpatient basis. 2. Pulmonary vascular congestion with small left-sided pleural effusion. Likely secondary to continuous rapid ventricular rate. Echocardiography to assess ejection fraction pending. Daily weights per standing scale only. Lasix IV 40 mg twice daily. Intermittent check of labs with replacement of electrolytes as necessary. 3. 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 Patient with an acceptable hemoglobin. Iron and percent saturations are low. Recommend follow-up with hematology on an outpatient basis. Hemoglobin A1c just above normal. 4. 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 Patient and family educated. At time of discharge we will start oral hypoglycemic agent. Likely Metformin. CODE STATUS: DNR/DNI. DVT prophylaxis; systemic anticoagulation with Eliquis.
[2020-12-23] MEDS: Diltiazem IR 30 MG Tab PO SCH ×2 (15:43→22:02)
[2020-12-23] MEDS: Docusate Sodium 100 MG Cap PO PRN (19:46)
[2020-12-24] MEDS: Albuterol/Ipratropium 3.0-0.5 MG/3 ML Neb Soln NEB PRN ×2 (02:20→06:23)
[2020-12-24] MEDS: Diltiazem IR 30 MG Tab PO SCH (04:00)
[2020-12-24] MEDS ORDERED: Diltiazem 180 MG Cap.CD PO ONE (06:00)
[2020-12-24] MEDS: Sodium Chloride 0.9% 10 ML Syringe FLUSH PRN (06:03)
[2020-12-24] MEDS: Furosemide 40 MG/4 ML VIAL IVPUSH SCH ×2 (06:04→12:43)
[2020-12-24] MEDS: Apixaban 5 MG Tab PO SCH (08:04)
[2020-12-24] MEDS: Docusate Sodium 100 MG Cap PO PRN (08:04)
--- NOTE | 2020-12-24 08:58 | PCM.DCSUM1 ---
Discharge Summary - Hospital Course Free Text/Narrative:: 70-year-old gentleman with a past medical history notable for hemochromatosis previously requiring phlebotomy, who presented to the [facility] emergency department with his family due to a chief complaint of shortness of breath, found to be in new atrial fibrillation with rapid ventricular response. 1. Atrial fibrillation with rapid ventricular response. Originally admitted to the general medical floor to the hospitalist service on a Cardizem infusion with concomitant oral Cardizem in order to wean off the infusion. Within 24 hours he was weaned off the infusion and kept on 60 mg p.o. every 6 hours. This kept him relatively stable at rest but tachycardic with ambulation up to 300 feet to the point that he was becoming symptomatic. After discussing with the patient, he elected to try Cardizem 360 instead of 240. After ambulating 300 feet on the day of discharge the patient's heart rate did not exceed 120 bpm and he did not become short of breath. At that time he was comfortable in being discharged. Monitored on telemetry route admission. Echocardiogram results pending from outside facility who is reading it. Systemic anticoagulation discussion was held with him and his family. Risks and benefits of being on anticoagulation in general were discussed as well as those specific to agents such as Coumadin, Eliquis and Xarelto. After an informed discussion the patient has chosen Eliquis. We will continue 5 mg twice a day. Follow-up with cardiology on an outpatient basis. She was educated on the possible recommendation of elective [place] cardioversion. 2. Pulmonary vascular congestion with small left-sided pleural effusion. Likely secondary to continuous rapid ventricular rate. Echocardiography to assess ejection fraction pending. Daily weights per standing scale only. Lasix IV 40 mg twice daily. Which did noticeably diurese him well. Patient lost a number of pounds in water weight. Patient given a prescription for 20 mg p.o. Lasix to be taken for 7 days post discharge. PCP to follow-up on further necessity of diuretics. Intermittent check of labs with replacement of electrolytes as necessary. 3. 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 Patient with an acceptable hemoglobin. Iron and percent saturations are low. Recommend follow-up with hematology on an outpatient basis. Hemoglobin A1c just above normal. 4. 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 Patient and family educated. Started Metformin at the time of discharge. CODE STATUS: DNR/DNI. DVT prophylaxis; systemic anticoagulation with Eliquis. HPI Initial Comments: Initial Comments - Free Text/Narative: Patient is a 70-year-old male with a past medical history as listed below who presents to the [facility] emergency department with his and daughter due to a chief complaint of shortness of breath. Patient has been experiencing progressive shortness of breath since a recent golf tournament. He was not walking the course that day but began feeling ivan rtness of breath with an occasional heaviness within the chest. He denies any pain or pleurisy. He has not had any similar past president. Since that day, walking even the shortest distances makes him very short of breath and he has to sit down to catch his breath. He sometimes appears as if he is struggling according to his . It is gotten to the point where he is not able to walk more than 20 feet without becoming very symptomatic. He denies any lightheadedness/dizziness, change in vision, neurologic deficits, chest discomfort as noted above, nausea/vomiting, abdominal discomfort or dif ficulties with voiding. He has noted significant increase in lower extremity edema especially over the past 3 days. He is seeing the indentations of his socks. Again, he has never experienced any similar past president of symptoms. He presented today due to becoming very concerned regarding his shortness of breath. Upon initial evaluation he was noted to be in atrial fibrillation with rapid manjinder tricular response with a heart rate of above 160 bpm. This was responsive to 20 mg IV push of Cardizem. Physical examination was notable for systemic volume overload. Chest x-ray also noted pulmonary vascular congestion as well as left-sided pleural effusion. Patient was referred to the internal medicine service for new diagnosis of atrial fibrillation with rapid ventricular response. 14 point review of systems was reviewed with the patient and his family and only pertinent for the above information. CODE STATUS: Reviewed and he wishes to be DNR/DNI. Abdomen Pain Score (Numeric/FACES): 5 - Related Data Allergies/Adverse Reactions: Allergies Allergy/AdvReac Type Severity Reaction Status Date / Time No Known Allergies Allergy Verified 12/22/20 11:11 Home Medications: Home Meds . [No Known Home Meds] 12/22/20 [History] Past Medical History Cardiovascular History: Reports: Other (See Below) Other Cardiovascular History: hemachromatosis previously requiring phlebotomy. - Past Surgical History Musculoskeletal Surgical History: Reports: Knee Replacement Social & Family History - Tobacco Use Tobacco Use Status *Q: Former Tobacco User Used Tobacco, but Quit: Yes Month/Year Tobacco Last Used: "long time ago" - Caffeine Use Caffeine Use: Reports: Coffee - Recreational Drug Use Recreational Drug Use: No H&P Review of Systems - Review of Systems: Review Of Systems: Comprehensive ROS is negative, except as noted in HPI. Exam - Exam Exam: See Below - Vital Signs Vital Signs: Last Vital Signs Temp 96.9 F 12/22/20 11:08 Pulse 151 H 12/22/20 11:08 Resp 22 H 12/22/20 11:08 BP 159/119 H 12/22/20 11:08 Pulse Ox 99 12/22/20 11:08 Weight: 254 lb - Exam Physical Exam Comments:: General: Awake and alert, in no apparent distress. Nontoxic-appearing. HEENT: Normocephalic, atraumatic. Extra ocular muscles intact. Pupils equal and reactive to light. Nares are patent. Oropharynx clear without erythema or exudate. Tongue is midline. Neck: Supple without lymphadenopathy. No goiter. Trachea midline. Heart: Irregular rate and rhythm with tachycardia. S1 and S2 heard without murmur or extrasystoles. Lungs: Clear to auscultation bilaterally. No wheezing, rales, rhonchi. Diminished breath sounds at left base Abdomen: Overweight, soft, nontender, nondistended. Positive bowel sounds. No CVA tenderness. No suprapubic tenderness. Extremities: Warm and perfused. No clubbing, cyanosis. Pitting edema noted in both lower extremities. Integument: No obvious rash or jaundice. No lymphadenopathy. Very tanned. Neurologic: Cranial nerves II through XII grossly intact. No obvious gross motor or sensory deficits. Psychiatric: Normal mood and affect. - Discharge Data Discharge Date: 12/24/20 Discharge Disposition: Home, Self-Care 01 Condition: Good - Referral to Home Health Primary Care Physician: PCP None - Patient Summary/Data Consults: Consultations 12/22/20 13:29 Respiratory Care Assess and Treatment [CONS] Routine - Patient Instructions Other/Special Instructions: Follow-up with PCP within 1 to 2 weeks time. Continue taking medications as outlined within the discharge packet. It is absolutely imperative that you do not miss a dose of Eliquis, in the event cardiology consultation recommends elective cardioversion. Activity and diet are as tolerated. Recommend restricting the amount of carbohydrates. Follow-up with hematology regarding diagnosis of hemochromatosis. Restrict caffeine or any other stimulants. If you experience any signs or symptoms that warranted this admission please do not hesitate to call your primary care provider or present to an emergency department for an immediate evaluation. - Discharge Plan *PRESCRIPTION DRUG MONITORING PROGRAM REVIEWED*: Not Applicable *COPY OF PRESCRIPTION DRUG MONITORING REPORT IN PATIENT REJI: Not Applicable Prescriptions/Med Rec: dilTIAZem HCL [Cardizem Cd] 360 mg PO DAILY 30 Days cap.er.24h Apixaban [Eliquis] 5 mg PO BID #60 tablet metFORMIN [Glucophage] 500 mg PO BIDMEALS #60 tab Furosemide [Lasix] 20 mg PO DAILY #14 tablet Home Medications: Home Meds Apixaban [Eliquis] 5 mg PO BID #60 tablet 12/24/20 [Rx] Furosemide [Lasix] 20 mg PO DAILY #14 tablet 12/24/20 [Rx] dilTIAZem HCL [Cardizem Cd] 360 mg PO DAILY 30 Days cap.er.24h 12/24/20 [Rx] metFORMIN [Glucophage] 500 mg PO BIDMEALS #60 tab 12/24/20 [Rx] Patient Handouts: Apixaban oral tablets Forms: ED Department Discharge Referrals: PCP,None [Primary Care Provider] - - Discharge Summary/Plan Comment DC Time >30 min.: Yes - General Info Date of Service: 12/24/20 Admission Dx/Problem (Free Text: Admission Diagnosis/Problem Admission Diagnosis/Problem Atrial fibrillation with rapid ventricular response Subjective Update: No acute events overnight. No new nursing concerns. Patient does not endorse any specific complaints other than some abdominal bloating. - Patient Data Vitals - Most Recent: Last Vital Signs Temp 97.3 F 12/24/20 08:00 Pulse 81 12/23/20 16:00 Resp 18 12/24/20 08:00 BP 137/91 H 12/24/20 08:00 Pulse Ox 92 L 12/24/20 08:00 Weight - Most Recent: 243 lb 11.2 oz I&O - Last 24 hours: Intake & Output 12/23/20 12/24/20 12/24/20 22:59 06:59 14:59 Intake Total 610 800 Output Total 1100 Balance -490 800 Lab Results - Last 24 hrs: Laboratory Results - last 24 hr 12/24/20 12/24/20 Range/Units 05:30 05:30 Sodium 144 (136-145) mEq/L Potassium 3.5 (3.5-5.1) mEq/L Chloride 105 (98-107) mEq/L Carbon Dioxide 29 (21-32) mEq/L Anion Gap 13.5 (5-15) BUN 25 H (7-18) mg/dL Creatinine 1.4 H (0.7-1.3) mg/dL Est Cr Clr Drug Dosing 48.18 mL/min Estimated GFR (MDRD) 50 (>60) mL/min BUN/Creatinine Ratio 17.9 (14-18) Glucose 117 H (70-99) mg/dL Calcium 9.2 (8.5-10.1) mg/dL Magnesium 1.8 (1.8-2.4) mg/dL Med Orders - Current: Current Medications Acetaminophen (Acetaminophen 325 Mg Tab) 650 mg PO Q4H PRN PRN Reason: Pain (Mild 1-3)/fever Albuterol/Ipratropium (Albuterol/Ipratropium 3.0-0.5 Mg/3 Ml Neb Soln) 3 ml NEB Q4H PRN PRN Reason: Shortness Of Breath/wheezing Last Admin: 12/24/20 06:23 Dose: 3 ml Documented by: Apixaban (Apixaban 5 Mg Tab) 5 mg PO BID JEMIMA Last Admin: 12/24/20 08:04 Dose: 5 mg Documented by: Docusate Sodium (Docusate Sodium 100 Mg Cap) 100 mg PO BID PRN PRN Reason: Constipation Last Admin: 12/24/20 08:04 Dose: 100 mg Documented by: Furosemide (Furosemide 40 Mg/4 Ml Vial) 40 mg IVPUSH BIDDIURETIC JEMIMA Last Admin: 12/24/20 06:04 Dose: 40 mg Documented by: Diltiazem HCl 100 mg/ Sodium (Chloride) 100 mls @ 5 mls/hr IV TITRATE JEMIMA; Protocol Last Titration: 12/23/20 00:39 Dose: 0 mg/hr, 0 mls/hr Documented by: Ondansetron HCl (Ondansetron 4 Mg Tab.Dis) 4 mg PO Q4H PRN PRN Reason: nausea, able to take PO Ondansetron HCl (Ondansetron 4 Mg/2 Ml Sdv) 4 mg IV Q4H PRN PRN Reason: Nausea/Vomiting Polyethylene Glycol (Polyethylene Glycol 3350 Powder 17 Gm Packet) 17 gm PO DAILY PRN PRN Reason: Constipation Last Admin: 12/22/20 14:23 Dose: 17 gm Documented by: Sodium Chloride (Sodium Chloride 0.9% 10 Ml Syringe) 10 ml FLUSH ASDIRECTED PRN PRN Reason: Keep Vein Open Last Admin: 12/22/20 14:24 Dose: 10 ml Documented by: Discontinued Medications Diltiazem HCl (Diltiazem 50 Mg/10 Ml Sdv) 20 mg IVPUSH ONETIME ONE Stop: 12/22/20 11:33 Last Admin: 12/22/20 11:46 Dose: 20 mg Documented by: Diltiazem HCl (Diltiazem 50 Mg/10 Ml Sdv) 10 mg IVPUSH ONETIME ONE Stop: 12/22/20 12:49 Last Admin: 12/22/20 12:59 Dose: 10 mg Documented by: Diltiazem HCl (Diltiazem Ir 30 Mg Tab) 30 mg PO Q6HR [facility] Last Admin: 12/22/20 14:23 Dose: 30 mg Documented by: Diltiazem HCl (Diltiazem Ir 30 Mg Tab) 30 mg PO Q6H JEMIMA Diltiazem HCl (Diltiazem Ir 60 Mg Tab) 60 mg PO Q6H [facility] Last Admin: 12/23/20 08:03 Dose: 60 mg Documented by: Diltiazem HCl (Diltiazem Ir 30 Mg Tab) 60 mg PO Q6H [facility] Last Admin: 12/24/20 04:00 Dose: 60 mg Documented by: Diltiazem HCl (Diltiazem 180 Mg Cap.Cd) 360 mg PO ONETIME ONE Stop: 12/24/20 06:01 Last Admin: 12/24/20 06:02 Dose: 360 mg Documented by: Sodium Chloride (Sodium Chloride 0.9% 10 Ml Syringe) 10 ml FLUSH ASDIRECTED PRN PRN Reason: Keep Vein Open Last Admin: 12/24/20 06:03 Dose: 10 ml Documented by: - Exam Quality Assessment: Reports: DVT Prophylaxis. Denies: Supplemental Oxygen General: Reports: Alert Neck: Reports: Supple Lungs: Reports: Clear to Auscultation, Normal Respiratory Effort Cardiovascular: Reports: Irregular Rhythm GI/Abdominal Exam: Normal Bowel Sounds, Soft, Non-Tender, Distended Extremities: Normal Inspection, Pedal Edema Skin: Reports: Warm, Dry, Intact Neurological: Reports: No New Focal Deficit Psy/Mental Status: Reports: Normal Mood
[2020-12-24] MEDS: Polyethylene Glycol 3350 Powder 17 GM Packet PO PRN (12:13)
== END 2020-12-24 12:55 | disposition home or self-care (01) | DRG 309 ==
LOC: JD.ED 10:58 → JD.ICU 13:29
PROVIDERS: ADMIT Hospitalist; ATTEND Hospitalist
DX: I48.91 Unspecified atrial fibrillation (principal); J90 Pleural effusion, not elsewhere classified; R09.89 Other specified symptoms and signs involving the circulatory and respiratory systems; I50.9 Heart failure, unspecified; E11.9 Type 2 diabetes mellitus without complications; Z66 Do not resuscitate; N28.9 Disorder of kidney and ureter, unspecified; Z96.659 Presence of unspecified artificial knee joint; Z79.01 Long term (current) use of anticoagulants; Z87.891 Personal history of nicotine dependence; Z79.84 Long term (current) use of oral hypoglycemic drugs; Z79.899 Other long term (current) drug therapy; E83.119 Hemochromatosis, unspecified; Z20.822 Contact with and (suspected) exposure to COVID-19
CPT/HCPCS: 36415; 71045; 80053; 83036; 83880; 84484; 85025; 85610; 93005; 96365; 96376; 99285; J3490 ×3; U0002; 80048; 83540; 83735; 84443; 84466; 93010; 93306; 94640; 99223; 99233; 99239; A9270-GY; J1940; J7620-GY

== ENCOUNTER 2021-01-18 15:35 | Emergency (ER) | payer MEDICARE ==
[2021-01-18] MEDS ORDERED: Oxymetazoline 0.05% Nasal Spray 30 ML Bottle NAS ONE (15:59)
--- NOTE | 2021-01-18 16:25 | EDM.PDOC ---
ED HPI GENERAL MEDICAL PROBLEM - General Chief Complaint: ENT Problem Stated Complaint: NOSE BLEED Time Seen by Provider: 01/18/21 15:49 Source of Information: Reports: Patient, RN Notes Reviewed History Limitations: Reports: No Limitations - History of Present Illness INITIAL COMMENTS - FREE TEXT/NARRATIVE: Patient is a 70-year-old male presenting to the emergency department with complaints of recurrent epistaxis of the right nare that began this morning. Reports that yesterday he had a nasopharyngeal Covid testing done in both of his nares. Last evening, he noticed a small amount of blood when blowing his nose. This morning, he had significant right-sided nosebleed which he states lasted about 15 minutes. He has had 5-6 episodes of this, however it does stop over time. At this time, he has no active bleeding. States he has had occasional nosebleeds in the past but not to this extent. Patient is on Eliquis for atrial fibrillation. Denies any lightheadedness or dizziness. - Related Data Allergies Allergy/AdvReac Type Severity Reaction Status Date / Time No Known Allergies Allergy Verified 01/18/21 15:52 Home Meds: Home Meds Apixaban [Eliquis] 5 mg PO BID #60 tablet 12/24/20 [Rx] Furosemide [Lasix] 20 mg PO DAILY #14 tablet 12/24/20 [Rx] dilTIAZem HCL [Cardizem Cd] 360 mg PO DAILY 30 Days cap.er.24h 12/24/20 [Rx] metFORMIN [Glucophage] 500 mg PO BIDMEALS #60 tab 12/24/20 [Rx] Past Medical History HEENT History: Reports: Other (See Below) Other HEENT History: glasses Cardiovascular History: Reports: Afib, Other (See Below) Other Cardiovascular History: hemachromatosis previously requiring phlebotomy. Musculoskeletal History: Reports: Other (See Below) Other Musculoskeletal History: bilateral knee replacement - Past Surgical History Musculoskeletal Surgical History: Reports: Knee Replacement Social & Family History - Tobacco Use Tobacco Use Status *Q: Never Tobacco User - Caffeine Use Caffeine Use: Reports: Coffee - Recreational Drug Use Recreational Drug Use: No ED ROS ENT - Review of Systems Review Of Systems: Comprehensive ROS is negative, except as noted in HPI. ED EXAM, ENT - Physical Exam Exam: See Below Exam Limited By: No Limitations General Appearance: Alert, WD/WN, No Apparent Distress Nose: Dried Blood. No: Active Bleeding Mouth/Throat: Normal Inspection, Normal Gums, Normal Lips, Normal Oropharynx, Normal Teeth Respiratory/Chest: No Respiratory Distress, Lungs Clear, Normal Breath Sounds, No Accessory Muscle Use, Chest Non-Tender Cardiovascular: Normal Peripheral Pulses, Regular Rate, Rhythm, No Edema, No Gallop, No JVD, No Murmur, No Rub Neurological: Alert, Oriented, CN II-XII Intact, Normal Cognition, Normal Gait, Normal Reflexes, No Motor/Sensory Deficits Psychiatric: Normal Affect, Normal Mood Skin: Warm, Dry, Intact, Normal Color, No Rash Course - Vital Signs Last Recorded V/S: Last Vital Signs Temp 98.2 F 01/18/21 15:49 Pulse 86 01/18/21 15:49 Resp 17 01/18/21 15:49 BP 127/90 01/18/21 15:49 Pulse Ox 93 L 01/18/21 15:49 - Orders/Labs/Meds Labs: Laboratory Tests 01/18/21 Range/Units 16:04 WBC 10.62 H (4.23-9.07) K/mm3 RBC 4.71 (4.63-6.08) M/mm3 Hgb 14.1 (13.7-17.5) gm/dl Hct 43.3 (40.1-51.0) % MCV 91.9 D (79.0-92.2) fl MCH 29.9 (25.7-32.2) pg MCHC 32.6 (32.2-35.5) g/dl RDW Std Deviation 47.6 H (35.1-43.9) fL Plt Count 195 (163-337) K/mm3 MPV 9.8 (9.4-12.3) fl Neut % (Auto) 82.3 H (34.0-67.9) % Lymph % (Auto) 6.4 L (21.8-53.1) % Wilcox % (Auto) 9.9 (5.3-12.2) % Eos % (Auto) 0.9 (0.8-7.0) Baso % (Auto) 0.2 (0.1-1.2) % Neut # (Auto) 8.74 H (1.78-5.38) K/mm3 Lymph # (Auto) 0.68 L (1.32-3.57) K/mm3 Wilcox # (Auto) 1.05 H (0.30-0.82) K/mm3 Eos # (Auto) 0.10 (0.04-0.54) K/mm3 Baso # (Auto) 0.02 (0.01-0.08) K/mm3 Manual Slide Review Abnormal smear Meds: Medications Discontinued Medications Generic Name Dose Route Start Last Admin Trade Name Kikeq PRN Reason Stop Dose Admin Oxymetazoline HCl 2 ml 01/18/21 15:59 01/18/21 16:03 Oxymetazoline 0.05% Nasal [place] 30 Ml Bottle STEPHANIE 01/18/21 16:00 2 spray ONETIME ONE Administration - Re-Assessments/Exams Free Text/Narrative Re-Assessment/Exam: 01/18/21 16:36 Patient is a 70-year-old male presenting to the emergency department with complaints of recurrent right-sided nosebleeds throughout the day today. Reports 5-6 episodes of bleeding lasting about 15 minutes each. He is on Eliquis for A. fib. The time of presentation, there was no active bleeding. I did have him blow his nose and he did not bleed after this. I put in 2 sprays of Afrin into the nare. Ordered CBC. We will watch him to see if bleeding recurs. 01/18/21 16:38 Hemoglobin returned normal at 14.1. He has had no recurrence of bleeding. He will be discharged home with a bottle of Afrin as well as a nasal clip. Discussed that if the bleeding should recur, he may apply the clip and lean forward. If bleeding does not stop within 15 minutes, he should return to the emergency department. He may also use sprays of aspirin as needed for bleeding. Discharge instructions as documented. Departure - Departure Time of Disposition: 16:37 Disposition: Home, Self-Care 01 Condition: Good Clinical Impression: Epistaxis - Discharge Information *PRESCRIPTION DRUG MONITORING PROGRAM REVIEWED*: No *COPY OF PRESCRIPTION DRUG MONITORING REPORT IN PATIENT REJI: No Instructions: Nosebleed, Adult Referrals: Quita Robles MD [Primary Care Provider] - Forms: ED Department Discharge Additional Instructions: You were seen in the emergency department today for recurrent right-sided nosebleeds throughout the day today. Blood work was completed and your hemoglobin was found to be normal. There was no recurrence of bleeding while in the emergency department. You have been sent home with a bottle of Afrin. If the bleeding should recur, recommend a couple sprays of this up the nare. You may use the nasal clip as provided to apply pressure. If bleeding does not stop within 15 minutes, or it is excessively bleeding, recommend return to the emergency department and at that time a nasal packing may be required. Sepsis Event Note (ED) - Evaluation Sepsis Screening Result: No Definite Risk
== END 2021-01-18 16:44 | disposition home or self-care (01) ==
LOC: JD.ED 15:35
DX: R04.0 Epistaxis (principal); I48.91 Unspecified atrial fibrillation; Z79.01 Long term (current) use of anticoagulants; Z79.84 Long term (current) use of oral hypoglycemic drugs
CPT/HCPCS: 36415; 85025; 99283; A9270

== ENCOUNTER 2021-01-22 05:58 | Inpatient (IN) | payer MEDICARE ==
[2021-01-22] MEDS ORDERED: Sodium Chloride 0.9% 10 ML Syringe FLUSH PRN (06:34)
[2021-01-22] MEDS ORDERED: Metoprolol Succinate 50 MG Tab.ER PO ONE (06:36)
[2021-01-22] MEDS ORDERED: Diltiazem 120 MG Cap.CD PO ONE (06:36)
[2021-01-22] MEDS ORDERED: Meclizine 12.5 MG Tab PO ONE (06:43)
--- NOTE | 2021-01-22 06:44 | EDM.PDOC ---
<Franklin Huynh - Last Filed: 01/22/21 06:46> ED HPI GENERAL MEDICAL PROBLEM - General Chief Complaint: Cardiovascular Problem Stated Complaint: DIZZY WHEN LAYING DOWN Time Seen by Provider: 01/22/21 06:19 Source of Information: Reports: Patient, RN Notes Reviewed - History of Present Illness INITIAL COMMENTS - FREE TEXT/NARRATIVE: 70 yr old male comes in with vertigo type dizziness that started last evening about 10 hrs ago. It is most bothersome when he lies down. It is somewhat better sitting with head elevated, not moving. He has been in a fib for about 6 to 8 weeks. Was seen by Cardiology yesterday, advised to decrease his diltiazem from 360 LA q day to 120 bid and increase his toprol XL from 50 bid to 75 bid. With his dizziness this morning he has not taken either of those meds. He is also more short of breath than usual. His daughter states he was also mildly confused at times during the night. His lower ant. chest does feel mildly tight this morning. He has not been coughing any more than usual. No [place], fever or chills. Left Chest Pain Score (Numeric/FACES): 6 - Related Data Allergies Allergy/AdvReac Type Severity Reaction Status Date / Time No Known Allergies Allergy Verified 01/22/21 06:13 Home Meds: Home Meds Apixaban [Eliquis] 5 mg PO BID #60 tablet 12/24/20 [Rx] Furosemide [Lasix] 20 mg PO DAILY #14 tablet 12/24/20 [Rx] dilTIAZem HCL [Cardizem Cd] 360 mg PO DAILY 30 Days cap.er.24h 12/24/20 [Rx] metFORMIN [Glucophage] 500 mg PO BIDMEALS #60 tab 12/24/20 [Rx] Past Medical History HEENT History: Reports: Other (See Below) Other HEENT History: glasses Cardiovascular History: Reports: Afib, Other (See Below) Other Cardiovascular History: hemachromatosis previously requiring phlebotomy. Musculoskeletal History: Reports: Other (See Below) Other Musculoskeletal History: bilateral knee replacement - Infectious Disease History Infectious Disease History: Reports: Chicken Pox, Measles, Mumps - Past Surgical History Musculoskeletal Surgical History: Reports: Knee Replacement Social & Family History - Tobacco Use Tobacco Use Status *Q: Former Tobacco User Used Tobacco, but Quit: Yes Month/Year Tobacco Last Used: 1999 - Caffeine Use Caffeine Use: Reports: Coffee - Recreational Drug Use Recreational Drug Use: No ED ROS GENERAL - Review of Systems Review Of Systems: See Below Constitutional: Denies: Fever, Chills, Diaphoresis HEENT: Reports: No Symptoms Respiratory: Reports: Shortness of Breath. Denies: Cough Cardiovascular: Reports: Chest Pain GI/Abdominal: Denies: Abdominal Pain, Nausea, Vomiting Musculoskeletal: Denies: Shoulder Pain, Arm Pain Skin: Reports: No Symptoms Neurological: Reports: Dizziness (described as vertigo, worse when lying flat) ED EXAM, GENERAL - Physical Exam Exam: See Below General Appearance: Alert, Mild Distress (appears mildly short of breath at time of exam) Throat/Mouth: Normal Inspection Head: Atraumatic Neck: Supple, Other (no JVD) Respiratory/Chest: Rales (both bases L more than R) Cardiovascular: Tachycardia, Irregularly Irregular GI/Abdominal: Soft, Non-Tender. No: Guarding Extremities: Pedal Edema (mild bilat) Neurological: Alert, Oriented, No Motor/Sensory Deficits Skin Exam: Warm, Dry, Normal Color #1 Interpretation EKG Date: 01/22/21 Rhythm: A-Fib Rate (Beats/Min): 126 [place]: Normal P-Wave: Absent QRS: Other (q waves lead III and AVF) ST-T: Normal Course - Re-Assessments/Exams Free Text/Narrative Re-Assessment/Exam: 01/22/21 06:55 Approaching change of shift, will transfer care to Dr Lacey. Have ordered appropriate labs, CXR, head CT, diltiazem 240 PO, toprol XL 75 mg PO, antivert 12.5 mg PO. Departure - Departure Disposition: Admitted As Inpatient 67 Clinical Impression: Atrial fibrillation with RVR CHF (congestive heart failure) Qualifiers: Heart failure type: unspecified Heart failure chronicity: acute Qualified Code(s): I50.9 - Heart failure, unspecified Pneumonia Qualifiers: Pneumonia type: due to unspecified organism Laterality: left Lung location: lower lobe of lung Qualified Code(s): J18.9 - Pneumonia, unspecified organism Referrals: Quita Robles MD [Primary Care Provider] - Forms: ED Department Discharge Sepsis Event Note (ED) - Evaluation Sepsis Screening Result: No Definite Risk <Mario Lacey - Last Filed: 01/22/21 09:07> Course - Vital Signs Last Recorded V/S: Last Vital Signs Temp 97.2 F 01/22/21 06:10 Pulse 118 H 01/22/21 06:55 Resp 30 H 01/22/21 06:10 BP 106/72 01/22/21 06:55 Pulse Ox 97 01/22/21 06:10 - Orders/Labs/Meds Orders: Active Orders 24 hr Category Date Time Status EKG 12 Lead [EKG Documentation Completion] [RC] STAT Care 01/22/21 06:38 Active Peripheral IV Care [RC] . DIRECTED Care 01/22/21 06:34 Active BLOOD CULTURE [MREF] Stat Lab 01/22/21 08:34 Ordered LACTIC ACID SEPSIS W/ REFLEX [LACTATE SEPSIS W/ REFLEX] Lab 01/22/21 08:34 Ordered [CHEM] Stat Diltiazem [Cardizem] 100 mg Med 01/22/21 08:30 Active Sodium Chloride 0.9% [Normal Saline] 100 ml IV TITRATE Sodium Chloride 0.9% [Saline Flush] Med 01/22/21 06:34 Active 10 ml FLUSH ASDIRECTED PRN Peripheral IV Insertion Adult [OM.PC] Stat Oth 01/22/21 06:34 Ordered Medication Orders Diltiazem HCl 100 mg/ Sodium (Chloride) 100 mls @ 5 mls/hr IV TITRATE JEMIMA; Protocol Last Admin: 01/22/21 08:35 Dose: 5 mg/hr, 5 mls/hr Documented by: SHERRON Sodium Chloride (Sodium Chloride 0.9% 10 Ml Syringe) 10 ml FLUSH ASDIRECTED PRN PRN Reason: Keep Vein Open Last Admin: 01/22/21 06:55 Dose: 10 ml Documented by: RUSSEL Labs: Laboratory Tests 01/22/21 01/22/21 01/22/21 Range/Units 06:26 06:26 06:26 WBC 15.89 H (4.23-9.07) K/mm3 RBC 4.65 (4.63-6.08) M/mm3 Hgb 13.8 (13.7-17.5) gm/dl Hct 41.5 (40.1-51.0) % MCV 89.2 (79.0-92.2) fl MCH 29.7 (25.7-32.2) pg MCHC 33.3 (32.2-35.5) g/dl RDW Std Deviation 46.7 H (35.1-43.9) fL Plt Count 223 (163-337) K/mm3 MPV 11.1 (9.4-12.3) fl Neut % (Auto) 87.9 H (34.0-67.9) % Lymph % (Auto) 4.3 L (21.8-53.1) % [place] % (Auto) 7.5 (5.3-12.2) % Eos % (Auto) 0.2 L (0.8-7.0) Baso % (Auto) 0.1 (0.1-1.2) % Neut # (Auto) 13.97 H (1.78-5.38) K/mm3 Lymph # (Auto) 0.68 L (1.32-3.57) K/mm3 [place] # (Auto) 1.19 H (0.30-0.82) K/mm3 Eos # (Auto) 0.03 L (0.04-0.54) K/mm3 Baso # (Auto) 0.02 (0.01-0.08) K/mm3 Manual Slide Review Normal smear Sodium 131 L D (136-145) mEq/L Potassium 3.3 L (3.5-5.1) mEq/L Chloride 93 L D (98-107) mEq/L Carbon Dioxide 25 (21-32) mEq/L Anion Gap 16.3 H (5-15) BUN 40 H (7-18) mg/dL Creatinine 1.3 (0.7-1.3) mg/dL Est Cr Clr Drug Dosing 51.88 mL/min Estimated GFR (MDRD) 55 (>60) mL/min BUN/Creatinine Ratio 30.8 H (14-18) Glucose 155 H (70-99) mg/dL Calcium 8.9 (8.5-10.1) mg/dL Total Bilirubin 0.9 (0.2-1.0) mg/dL AST 75 H (15-37) U/L ALT 110 H (16-63) U/L Alkaline Phosphatase 81 (46-116) U/L Troponin I < 0.017 (0.00-0.056) ng/mL NT-Pro-B Natriuret Pep 15801 H (0-125) pg/mL Total Protein 8.6 H (6.4-8.2) g/dl Albumin 3.4 (3.4-5.0) g/dl Globulin 5.2 gm/dL Albumin/Globulin Ratio 0.7 L (1-2) SARS-CoV-2 RNA (MANJULA) (NEGATIVE) 01/22/21 Range/Units 07:39 WBC (4.23-9.07) K/mm3 RBC (4.63-6.08) M/mm3 Hgb (13.7-17.5) gm/dl Hct (40.1-51.0) % MCV (79.0-92.2) fl MCH (25.7-32.2) pg MCHC (32.2-35.5) g/dl RDW Std Deviation (35.1-43.9) fL Plt Count (163-337) K/mm3 MPV (9.4-12.3) fl Neut % (Auto) (34.0-67.9) % Lymph % (Auto) (21.8-53.1) % [place] % (Auto) (5.3-12.2) % Eos % (Auto) (0.8-7.0) Baso % (Auto) (0.1-1.2) % Neut # (Auto) (1.78-5.38) K/mm3 Lymph # (Auto) (1.32-3.57) K/mm3 [place] # (Auto) (0.30-0.82) K/mm3 Eos # (Auto) (0.04-0.54) K/mm3 Baso # (Auto) (0.01-0.08) K/mm3 Manual Slide Review Sodium (136-145) mEq/L Potassium (3.5-5.1) mEq/L Chloride (98-107) mEq/L Carbon Dioxide (21-32) mEq/L Anion Gap (5-15) BUN (7-18) mg/dL Creatinine (0.7-1.3) mg/dL Est Cr Clr Drug Dosing mL/min Estimated GFR (MDRD) (>60) mL/min BUN/Creatinine Ratio (14-18) Glucose (70-99) mg/dL Calcium (8.5-10.1) mg/dL Total Bilirubin (0.2-1.0) mg/dL AST (15-37) U/L ALT (16-63) U/L Alkaline Phosphatase (46-116) U/L Troponin I (0.00-0.056) ng/mL NT-Pro-B Natriuret Pep (0-125) pg/mL Total Protein (6.4-8.2) g/dl Albumin (3.4-5.0) g/dl Globulin gm/dL Albumin/Globulin Ratio (1-2) SARS-CoV-2 RNA (MANJULA) Negative (NEGATIVE) Meds: Medications Generic Name Dose Route Start Last Admin Trade Name Freq PRN Reason Stop Dose Admin Diltiazem HCl 100 mg/ Sodium 100 mls @ 5 mls/hr 01/22/21 08:30 01/22/21 08:35 Chloride IV 5 mg/hr TITRATE JEMIMA 5 mls/hr Administration Protocol 5 MG/HR Sodium Chloride 10 ml 01/22/21 06:34 01/22/21 06:55 Sodium Chloride 0.9% 10 Ml Syringe FLUSH 10 ml ASDIRECTED PRN Administration Keep Vein Open Discontinued Medications Generic Name Dose Route Start Last Admin Trade Name Freq PRN Reason Stop Dose Admin Diltiazem HCl 120 mg 01/22/21 06:36 01/22/21 06:55 Diltiazem 120 Mg Cap.Cd PO 01/22/21 06:37 120 mg ONETIME ONE Administration Furosemide 40 mg 01/22/21 06:49 01/22/21 06:56 Furosemide 40 Mg Tab PO 01/22/21 06:50 40 mg ONETIME ONE Administration Furosemide 40 mg 01/22/21 08:25 01/22/21 08:35 Furosemide 40 Mg/4 Ml Vial IVPUSH 01/22/21 08:26 40 mg NOW ONE Administration Ceftriaxone Sodium 2 gm/ 100 mls @ 200 mls/hr 01/22/21 08:35 01/22/21 08:43 Sodium Chloride IV 01/22/21 09:04 200 mls/hr ONETIME ONE Administration Meclizine HCl 12.5 mg 01/22/21 06:43 01/22/21 06:55 Meclizine 12.5 Mg Tab PO 01/22/21 06:44 12.5 mg ONETIME ONE Administration Metoprolol Succinate 75 mg 01/22/21 06:36 01/22/21 06:54 Metoprolol Succinate 50 Mg Tab.Er PO 01/22/21 06:37 75 mg ONETIME ONE Administration - Re-Assessments/Exams Free Text/Narrative Re-Assessment/Exam: 01/22/21 08:[address] Huynh. His EKG shows atrial fibrillation with RVR at 126. His CT of his head shows senescent change. Nothing acute is appreciated on noncontrast CT study of the brain. His CXR shows increased lung markings which appear stable. Slight increased density within the lung base most likely due to atelectasis unless patient has infectious symptoms to indicate minimal area of pneumonia. Lorri findings as noted above which are chronic. His WBC was elevated at 15.89. His Na is low at 131. His K is low at 3.3. His anion gap is elevated at 16.3. His glucose is elevated at 155. His AST is elevated at 75. His ALT is elevated at 110. His troponin is negative. His BNP is elevated at 20,453. He has pneumonia. I have ordered blood cultures, lactic acid, rocephin 2 grams IV, lasix 40mg IV, and cardizem 5mg/hr. I feel he needs to be admitted. He says he has had fever, chills, and cough for about a week. 01/22/21 09:[address] Figueroa and he agreed to the admission. He wanted zithromax added and he wanted the cardizem stopped. This is pneumonia and he is in RVR because he has pneumonia. Departure - Departure Time of Disposition: 09:10 Condition: Serious Sepsis Event Note (ED) - Focused Exam Vital Signs: Vital Signs Temp Pulse Pulse Resp BP BP Pulse Ox 01/22/21 06:55 118 H 106/72 01/22/21 06:54 125 H 122/103 H 01/22/21 06:10 97.2 F 124 H 30 H 122/103 H 97 - My Orders Last 24 Hours: My Active Orders 01/22/21 08:30 Diltiazem [Cardizem] 100 mg Sodium Chloride 0.9% [Normal Saline] 100 ml IV TITRATE 01/22/21 08:34 BLOOD CULTURE [MREF] Stat LACTIC ACID SEPSIS W/ REFLEX [LACTATE SEPSIS W/ REFLEX] [CHEM] Stat - Assessment/Plan Last 24 Hours: My Active Orders 01/22/21 08:30 Diltiazem [Cardizem] 100 mg Sodium Chloride 0.9% [Normal Saline] 100 ml IV TITRATE 01/22/21 08:34 BLOOD CULTURE [MREF] Stat LACTIC ACID SEPSIS W/ REFLEX [LACTATE SEPSIS W/ REFLEX] [CHEM] Stat
[2021-01-22] MEDS ORDERED: Furosemide 40 MG Tab PO ONE (06:49)
--- NOTE | 2021-01-22 07:20 | CT ---
Head CT Technique: Multiple axial sections through the brain were obtained. Intravenous contrast was not utilized. Reconstructed coronal and sagittal images were obtained. Comparison: No prior intracranial imaging Findings: Ventricles along with basal cisterns and sulci over the convexities are mildly to moderately prominent. Slight basal ganglia calcification is noted. Very minimal scattered areas of diminished density are noted within the periventricular white matter which is compatible with small vessel ischemic demyelination change. No other abnormal parenchymal densities are seen. Atherosclerotic calcification is seen within the vertebral vessels and within the carotid siphon. Visualized paranasal sinuses and mastoid sinuses show nothing acute. No acute calvarial abnormality is appreciated. Impression: 1. Senescent change as noted above. 2. Nothing acute is appreciated on noncontrast CT study of the brain. Diagnostic code #2
--- NOTE | 2021-01-22 07:28 | CR ---
Chest: Portable view of the chest was obtained. Comparison: Prior chest x-ray of 12/22/20. Heart size and mediastinum are within normal limits for portable technique. Lung markings are increased which appear fairly stable from prior exam. Minimal increased density within the left lung base is seen. Lungs otherwise are clear. Scattered degenerative change is noted within the spine with mild scoliosis which is likely degenerative. Impression: 1. Increased lung markings which appear stable. 2. Slight increased density within the left lung base most likely due to atelectasis unless patient has infectious symptoms to indicate minimal area of pneumonia. 3. Bony findings as noted above which are chronic. Diagnostic code #3
[2021-01-22] MEDS ORDERED: Furosemide 40 MG/4 ML VIAL IVPUSH ONE (08:25)
[2021-01-22] MEDS ORDERED: Diltiazem 100 MG in Sodium Chloride 0.9% 100 ML IV SCH (08:30)
[2021-01-22] MEDS ORDERED: cefTRIAXone 2 GM in Sodium Chloride 0.9% 100 ML IV ONE ×2 (08:35→12:17)
[2021-01-22] MEDS ORDERED: Azithromycin 500 MG in Sodium Chloride 0.9% 250 ML IV ONE (09:05)
[2021-01-22] MEDS ORDERED: Docusate Sodium 100 MG Cap PO PRN (12:03)
[2021-01-22] MEDS ORDERED: oxyCODONE 5 MG Tab PO PRN (12:03)
[2021-01-22] MEDS ORDERED: HYDROmorphone 0.5 MG/0.5 ML Syringe IVPUSH PRN (12:03)
[2021-01-22] MEDS ORDERED: Acetaminophen 325 MG Tab PO PRN (12:03)
[2021-01-22] MEDS ORDERED: Furosemide 100 MG in Sodium Chloride 0.9% 90 ML IV SCH ×2 (12:15→13:00)
[2021-01-22] MEDS ORDERED: Potassium Chloride 20 MEQ Tab.ER PO ONE ×2 (12:20→16:00)
[2021-01-22] MEDS ORDERED: Azithromycin 500 MG in Sodium Chloride 0.9% 250 ML IV SCH (12:30)
--- NOTE | 2021-01-22 12:48 | PCM.HP.2 ---
H&P History of Present Illness - General Date of Service: 01/22/21 Admit Problem/Dx: Admission Diagnosis/Problem Admission Diagnosis/Problem Pneumonia Source of Information: Patient, Family History Limitations: Reports: No Limitations - History of Present Illness Initial Comments - Free Text/Narative: 70-year-old male who presented to the ER with complaints of vertigo type dizziness that started last evening. Patient reported that it was worse when he was lying down flat. States that he spent most of the night trying to sleep in a semi-Fowlers position in the recliner. Also reports that he has had a persistent productive cough for the past week or so. He has had intermittent fevers for the past week ranging from 99-101.9. His reports that most often the fevers were noted in the evening. He does have a significant cardiac history and has had A. fib for about 6 to 8 weeks. He was seen by his tower equipment repairer yesterday at [facility], Dr. Garcia, and was instructed to decrease his diltiazem from 360 LA daily to 120 twice daily and increase his Toprol-XL from 50 twice daily to 75 twice daily. He tells me labs were completed yesterday with his tower equipment repairer however from what I can establish only a BMP was collected. I am not able to obtain the results of this. No chest x- ray was completed yesterday. He states he has been more short of breath and has had decreased appetite over the past couple of weeks. His daughter states that last night she also noticed some mild confusion. Complains of some epigastric discomfort that started last evening however he reports he has no history of GERD or reflux type symptoms. He states he does take Lasix daily and does notice that once he takes it he does diurese somewhat. He does note that he has issues with swelling to his lower extremities. He states it progressively worsens throughout the day however when he wakes up in the morning it is significantly decreased. As mentioned earlier he has had a decrease in his appetite. He is a type II diabetic he states he takes Metformin daily. Checks his blood sugars weekly and states they have been ranging from 110-126. Patient was hospitalized at this facility in December. An echocardiogram was obtained at that time and it showed an ejection fraction of 25%. Patient also notifies me that he recently was treated for pyelonephritis and took his last dose of antibiotic yesterday. He does not recall the name of the antibiotic he was taking. He denies any urinary symptoms and denies costophrenic angle tenderness. The patient does take Eliquis twice daily. While in the emergency department, labs reveal a WBC of 15.89, hemoglobin 13.8, hematocrit 41.5, platelet count 223,000, neutrophil percentage 87.9, sodium was 131, potassium 3.3, chloride 93, carbon dioxide 25, anion gap 16.3, BUN 40, creatinine 1.3, GFR 55, glucose 155, AST 75, ALT 110, alk phos 81, troponin less than 0.017, proBNP 20,453. The patient was Covid negative, lactic acid 1.4. The patient was found to be in atrial fib with RVR with rate at 126. He was subsequently started on a Cardizem drip at that time. He was given 40 mg of oral Lasix as well as 40 mg of IV Lasix. Nursing staff he only diuresed 200 mL from that. He was also given metoprolol supinate [address] His head CT showed senescent change. Nothing acute was appreciated on the noncontrast CT study of the brain. Chest x-ray showed increased lung markings which appears stable. Slightly increased density within the left lung base most likely due to atelectasis unless the patient has infectious symptoms indicate minimal areas of pneumonia. Bony findings as noted above which are chronic. Blood cultures were ordered on the patient he was given Rocephin 2 g IV. The ER physicians felt the patient needed to be admitted and they consulted the hospitalist, Dr. Hamilton. He requested the patient also receive Zithromax and discontinue the Cardizem drip as the pneumonia is likely the cause of the RVR. Onset of Symptoms: Reports: Gradual Left Chest Pain Score (Numeric/FACES): 6 - Related Data Allergies/Adverse Reactions: Allergies Allergy/AdvReac Type Severity Reaction Status Date / Time No Known Allergies Allergy Verified 01/22/21 06:13 Home Medications: Home Meds Apixaban [Eliquis] 5 mg PO BID #60 tablet 12/24/20 [Rx] Furosemide [Lasix] 20 mg PO DAILY #14 tablet 12/24/20 [Rx] dilTIAZem HCL [Cardizem Cd] 360 mg PO DAILY 30 Days cap.er.24h 12/24/20 [Rx] metFORMIN [Glucophage] 500 mg PO BIDMEALS #60 tab 12/24/20 [Rx] Past Medical History HEENT History: Reports: Other (See Below) Other HEENT History: glasses Cardiovascular History: Reports: Afib, Other (See Below) Other Cardiovascular History: hemachromatosis previously requiring phlebotomy. Musculoskeletal History: Reports: Other (See Below) Other Musculoskeletal History: bilateral knee replacement - Infectious Disease History Infectious Disease History: Reports: Chicken Pox, Measles, Mumps - Past Surgical History Musculoskeletal Surgical History: Reports: Knee Replacement Social & Family History - Tobacco Use Tobacco Use Status *Q: Former Tobacco User Used Tobacco, but Quit: Yes Month/Year Tobacco Last Used: 1999 - Caffeine Use Caffeine Use: Reports: Coffee - Recreational Drug Use Recreational Drug Use: No H&P Review of Systems - Review of Systems: Review Of Systems: See Below General: Reports: Fever, Chills, Malaise, Weakness, Fatigue, Decreased Appetite, Weight Loss HEENT: Reports: Vertigo Pulmonary: Reports: Shortness of Breath, Cough, Sputum. Denies: Wheezing, Pleuritic Chest Pain Cardiovascular: Reports: Chest Pain (Located in the epigastric area), Edema, Lightheadedness (Vertigo type symptoms) Gastrointestinal: Reports: Constipation, Decreased Appetite. Denies: Diarrhea, Nausea, Vomiting Genitourinary: Reports: No Symptoms, Other (Recently completed a course of antibiotics for pyelonephritis. Last dose was taken yesterday) Musculoskeletal: Reports: No Symptoms Skin: Reports: No Symptoms Psychiatric: Reports: No Symptoms Neurological: Reports: Dizziness Hematologic/Lymphatic: Reports: No Symptoms Immunologic: Reports: No Symptoms Exam - Exam Exam: See Below - Vital Signs Vital Signs: Last Vital Signs Temp 97.2 F 01/22/21 06:10 Pulse 117 H 01/22/21 09:00 Resp 30 H 01/22/21 06:10 BP 105/90 01/22/21 09:00 Pulse Ox 97 01/22/21 06:10 Weight: 210 lb - Exam Quality Assessment: DVT Prophylaxis (Eliquis). No: Supplemental Oxygen General: Alert, Oriented, Cooperative HEENT: EOMI, Hearing Intact, Mucosa Moist & [place], Pupils Equal, Pupils Reactive Neck: Supple, Trachea Midline Lungs: Normal Respiratory Effort, Crackles (Fine crackles noted to left stroke program coordinator ior lobe). No: Clear to Auscultation Cardiovascular: Irregular Rhythm (Chronic atrial fibrillation), Tachycardia (120s) GI/Abdominal Exam: Normal Bowel Sounds, Soft, Non-Tender, No Distention (Male) Exam: Deferred Rectal (Males) Exam: Deferred Back Exam: Normal Inspection, Full Range of Motion. No: CVA Tenderness (L), CVA Tenderness (R) Extremities: Normal Inspection, Normal Range of Motion, Non-Tender, Normal Capillary Refill, Pedal Edema (1+ noted to bilateral lower extremities) Peripheral Pulses: 1+: Dorsalis Pedis (L), Dorsalis Pedis (R), 2+: Radial (L), Radial (R) Skin: Warm, Dry, Intact Neurological: Cranial Nerves Intact Neuro Extensive - Mental Status: Alert, Oriented x3, Normal Mood/Affect, Normal Cognition, Memory Intact Psychiatric: Alert, Normal Affect, Normal Mood - Patient Data Lab Results Last 24 hrs: Laboratory Results - last 24 hr 01/22/21 01/22/21 01/22/21 Range/Units 06:26 06:26 06:26 WBC 15.89 H (4.23-9.07) K/mm3 RBC 4.65 (4.63-6.08) M/mm3 Hgb 13.8 (13.7-17.5) gm/dl Hct 41.5 (40.1-51.0) % MCV 89.2 (79.0-92.2) fl MCH 29.7 (25.7-32.2) pg MCHC 33.3 (32.2-35.5) g/dl RDW Std Deviation 46.7 H (35.1-43.9) fL Plt Count 223 (163-337) K/mm3 MPV 11.1 (9.4-12.3) fl Neut % (Auto) 87.9 H (34.0-67.9) % Lymph % (Auto) 4.3 L (21.8-53.1) % [place] % (Auto) 7.5 (5.3-12.2) % Eos % (Auto) 0.2 L (0.8-7.0) Baso % (Auto) 0.1 (0.1-1.2) % Neut # (Auto) 13.97 H (1.78-5.38) K/mm3 Lymph # (Auto) 0.68 L (1.32-3.57) K/mm3 [place] # (Auto) 1.19 H (0.30-0.82) K/mm3 Eos # (Auto) 0.03 L (0.04-0.54) K/mm3 Baso # (Auto) 0.02 (0.01-0.08) K/mm3 Manual Slide Review Normal smear Sodium 131 L D (136-145) mEq/L Potassium 3.3 L (3.5-5.1) mEq/L Chloride 93 L D (98-107) mEq/L Carbon Dioxide 25 (21-32) mEq/L Anion Gap 16.3 H (5-15) BUN 40 H (7-18) mg/dL Creatinine 1.3 (0.7-1.3) mg/dL Est Cr Clr Drug Dosing 51.88 mL/min Estimated GFR (MDRD) 55 (>60) mL/min BUN/Creatinine Ratio 30.8 H (14-18) Glucose 155 H (70-99) mg/dL Lactic Acid (0.4-2.0) mmol/L Calcium 8.9 (8.5-10.1) mg/dL Total Bilirubin 0.9 (0.2-1.0) mg/dL AST 75 H (15-37) U/L ALT 110 H (16-63) U/L Alkaline Phosphatase 81 (46-116) U/L Troponin I < 0.017 (0.00-0.056) ng/mL NT-Pro-B Natriuret Pep 48417 H (0-125) pg/mL Total Protein 8.6 H (6.4-8.2) g/dl Albumin 3.4 (3.4-5.0) g/dl Globulin 5.2 gm/dL Albumin/Globulin Ratio 0.7 L (1-2) SARS-CoV-2 RNA (MANJULA) (NEGATIVE) 01/22/21 01/22/21 Range/Units 07:39 09:10 WBC (4.23-9.07) K/mm3 RBC (4.63-6.08) M/mm3 Hgb (13.7-17.5) gm/dl Hct (40.1-51.0) % MCV (79.0-92.2) fl MCH (25.7-32.2) pg MCHC (32.2-35.5) g/dl RDW Std Deviation (35.1-43.9) fL Plt Count (163-337) K/mm3 MPV (9.4-12.3) fl Neut % (Auto) (34.0-67.9) % Lymph % (Auto) (21.8-53.1) % [place] % (Auto) (5.3-12.2) % Eos % (Auto) (0.8-7.0) Baso % (Auto) (0.1-1.2) % Neut # (Auto) (1.78-5.38) K/mm3 Lymph # (Auto) (1.32-3.57) K/mm3 [place] # (Auto) (0.30-0.82) K/mm3 Eos # (Auto) (0.04-0.54) K/mm3 Baso # (Auto) (0.01-0.08) K/mm3 Manual Slide Review Sodium (136-145) mEq/L Potassium (3.5-5.1) mEq/L Chloride (98-107) mEq/L Carbon Dioxide (21-32) mEq/L Anion Gap (5-15) BUN (7-18) mg/dL Creatinine (0.7-1.3) mg/dL Est Cr Clr Drug Dosing mL/min Estimated GFR (MDRD) (>60) mL/min BUN/Creatinine Ratio (14-18) Glucose (70-99) mg/dL Lactic Acid 1.4 (0.4-2.0) mmol/L Calcium (8.5-10.1) mg/dL Total Bilirubin (0.2-1.0) mg/dL AST (15-37) U/L ALT (16-63) U/L Alkaline Phosphatase (46-116) U/L Troponin I (0.00-0.056) ng/mL NT-Pro-B Natriuret Pep (0-125) pg/mL Total Protein (6.4-8.2) g/dl Albumin (3.4-5.0) g/dl Globulin gm/dL Albumin/Globulin Ratio (1-2) SARS-CoV-2 RNA (MANJULA) Negative (NEGATIVE) Result Diagrams: 01/22/21 06:26 01/22/21 06:26 Sepsis Event Note - Evaluation Sepsis Screening Result: No Definite Risk - Focused Exam Vital Signs: Vital Signs Temp Pulse Pulse Resp BP BP Pulse Ox 01/22/21 09:00 117 H 105/90 01/22/21 08:45 123 H 107/82 01/22/21 08:30 120 H 107/82 01/22/21 08:23 122 H 104/76 01/22/21 06:55 118 H 106/72 01/22/21 06:54 125 H 122/103 H 01/22/21 06:10 97.2 F 124 H 30 H 122/103 H 97 - Problem List (1) Hypokalemia SNOMED Code(s): 47185796 ICD Code: E87.6 - HYPOKALEMIA Status: Acute Priority: High Current Visit: Yes (2) History of pyelonephritis SNOMED Code(s): 077083484 ICD Code: Z87.448 - PERSONAL HISTORY OF OTHER DISEASES OF URINARY SYSTEM Status: Acute Priority: Medium Current Visit: No (3) Type 2 diabetes mellitus SNOMED Code(s): 41764981 ICD Code: E11.9 - TYPE 2 DIABETES MELLITUS WITHOUT COMPLICATIONS Status: Chronic Priority: High Current Visit: Yes Qualifiers: Diabetes mellitus terminal block assembler insulin use: without terminal block assembler use Diabetes mellitus complication status: without complication Qualified Code(s): E11.9 - Type 2 diabetes mellitus without complications (4) Chronic anticoagulation SNOMED Code(s): 091120787 ICD Code: Z79.01 - PROTECTION CONSULTANT (CURRENT) USE OF ANTICOAGULANTS Status: Chronic Priority: Medium Current Visit: Yes (5) Atrial fibrillation with RVR SNOMED Code(s): 512636564540515 ICD Code: I48.91 - UNSPECIFIED ATRIAL FIBRILLATION Status: Chronic Priority: High Current Visit: Yes (6) CHF (congestive heart failure) SNOMED Code(s): 21969325 ICD Code: I50.9 - HEART FAILURE, UNSPECIFIED Status: Chronic Priority: High Current Visit: Yes Qualifiers: Heart failure type: unspecified Heart failure chronicity: acute on chronic Qualified Code(s): I50.9 - Heart failure, unspecified (7) Pneumonia SNOMED Code(s): 760032630 ICD Code: J18.9 - PNEUMONIA, UNSPECIFIED ORGANISM Status: Acute Priority: High Current Visit: Yes Qualifiers: Pneumonia type: due to unspecified organism Laterality: left Lung location: lower lobe of lung Qualified Code(s): J18.9 - Pneumonia, unspecified organism (8) Renal insufficiency SNOMED Code(s): 485384474, 305722177 ICD Code: N28.9 - DISORDER OF KIDNEY AND URETER, UNSPECIFIED Status: Chronic Priority: Medium Current Visit: No Problem List Initiated/Reviewed/Updated: Yes Orders Last 24hrs: Active Orders 24 hr Category Date Time Status Admission Status [Patient Status] [ADT] Routine ADT 01/22/21 10:50 Active Height and Weight [RC] DAILY Care 01/22/21 12:03 Active Intake and Output Strict [RC] ASDIRECTED Care 01/22/21 12:03 Active Oxygen Therapy [RC] ASDIRECTED Care 01/22/21 12:03 Active Peripheral IV Care [RC] Q4HR Care 01/22/21 06:34 Active Up With Assistance [RC] ASDIRECTED Care 01/22/21 12:04 Active Vital Signs [RC] Q1H Care 01/22/21 12:03 Active Consult to Case Management/Staff Field Engineer [CONS] Cons 01/22/21 12:03 Active Routine Consult to [place] Operator Helper [CONS] Routine Cons 01/22/21 12:03 Active Heart Healthy Diet [DIET] Diet 01/22/21 Dinner Active BLOOD CULTURE [MREF] Routine Lab 01/22/21 09:26 Received BLOOD CULTURE [MREF] Stat Lab 01/22/21 09:10 Received C-REACTIVE PROTEIN [CHEM] AM Lab 01/23/21 05:11 Ordered C-REACTIVE PROTEIN [CHEM] AM Lab 01/24/21 05:11 Ordered C-REACTIVE PROTEIN [CHEM] AM Lab 01/25/21 05:11 Ordered C-REACTIVE PROTEIN [CHEM] AM Lab 01/26/21 05:11 Ordered CBC WITH AUTO DIFF [HEME] AM Lab 01/23/21 05:11 Ordered CBC WITH AUTO DIFF [HEME] AM Lab 01/24/21 05:11 Ordered CBC WITH AUTO DIFF [HEME] AM Lab 01/25/21 05:11 Ordered CBC WITH AUTO DIFF [HEME] AM Lab 01/26/21 05:11 Ordered COMPREHENSIVE METABOLIC PN,CMP [CHEM] AM Lab 01/23/21 05:11 Ordered COMPREHENSIVE METABOLIC PN,CMP [CHEM] AM Lab 01/24/21 05:11 Ordered COMPREHENSIVE METABOLIC PN,CMP [CHEM] AM Lab 01/25/21 05:11 Ordered COMPREHENSIVE METABOLIC PN,CMP [CHEM] AM Lab 01/26/21 05:11 Ordered MAGNESIUM [CHEM] AM Lab 01/23/21 05:11 Ordered MAGNESIUM [CHEM] AM Lab 01/24/21 05:11 Ordered MAGNESIUM [CHEM] AM Lab 01/25/21 05:11 Ordered MAGNESIUM [CHEM] AM Lab 01/26/21 05:11 Ordered PROCALCITONIN [REF] Stat Lab 01/22/21 06:26 Received Acetaminophen [TylenoL] Med 01/22/21 12:03 Active 650 mg PO Q4H PRN Azithromycin [Zithromax] 500 mg Med 01/22/21 12:30 Active Sodium Chloride 0.9% [Normal Saline (AdvBag)] 250 ml IV Q24H Docusate Sodium [Colace] Med 01/22/21 12:03 Active 100 mg PO DAILY PRN Famotidine [Pepcid] Med 01/22/21 12:15 Active 20 mg PO DAILY Furosemide [Lasix] 100 mg Med 01/22/21 12:15 Active Sodium Chloride 0.9% [Normal Saline] 90 ml IV CONTINUOUS HYDROmorphone [Dilaudid] Med 01/22/21 12:03 Active 0.5 mg IVPUSH Q2H PRN Potassium Chloride [Klor-Con M20] Med 01/22/21 16:00 Once 40 meq PO ONETIME ONE Sodium Chloride 0.9% [Saline Flush] Med 01/22/21 06:34 Active 10 ml FLUSH ASDIRECTED PRN cefTRIAXone [Rocephin] 2 gm Med 01/22/21 12:17 Active Sodium Chloride 0.9% [Normal Saline] 100 ml IV ONETIME oxyCODONE Med 01/22/21 12:03 Active 5 mg PO Q4H PRN Peripheral IV Insertion Adult [OM.PC] Stat Oth 01/22/21 06:34 Ordered Resuscitation Status Routine Resus Stat 01/22/21 12:03 Ordered Medication Orders Acetaminophen (Acetaminophen 325 Mg Tab) 650 mg PO Q4H PRN PRN Reason: Pain (Mild 1-3)/fever Docusate Sodium (Docusate Sodium 100 Mg Cap) 100 mg PO DAILY PRN PRN Reason: Constipation Famotidine (Famotidine 20 Mg Tab) 20 mg PO DAILY JEMIMA Hydromorphone HCl (Hydromorphone 0.5 Mg/0.5 Ml Syringe) 0.5 mg IVPUSH Q2H PRN PRN Reason: Pain (severe 7-10) Furosemide 100 mg/ Sodium (Chloride) 100 mls @ 5 mls/hr IV CONTINUOUS JEMIMA; Protocol Azithromycin 500 mg/ Sodium (Chloride) 250 mls @ 250 mls/hr IV Q24H JEMIMA Ceftriaxone Sodium 2 gm/ (Sodium Chloride) 100 mls @ 200 mls/hr IV ONETIME ONE Stop: 01/22/21 12:46 Oxycodone HCl (Oxycodone 5 Mg Tab) 5 mg PO Q4H PRN PRN Reason: Pain (moderate 4-6) Potassium Chloride (Potassium Chloride 20 Meq Tab.Er) 40 meq PO ONETIME ONE Stop: 01/22/21 16:01 Sodium Chloride (Sodium Chloride 0.9% 10 Ml Syringe) 10 ml FLUSH ASDIRECTED PRN PRN Reason: Keep Vein Open Last Admin: 01/22/21 06:55 Dose: 10 ml Documented by: RUSSEL Assessment/Plan Comment:: Assessment day of admit: 70-year-old male who presents with fatigue, cough p roductive of yellow-colored sputum x1 week, fever, chills and decreased appetite. Was found to have pneumonia on the left lower lobe and subsequently an atrial fib with RVR. History of heart failure with a proBNP of 20,453. Recently treated for pyelonephritis with his last dose of antibiotic taken yesterday. He was treated in the emergency department with IV and p.o. Lasix. Chest x-ray subsequently revealed pneumonia of the left lower lobe. Blood cultures were collected and he was started on Rocephin and Zithromax IV. Patient subsequently admitted to ICU. He will be placed on a Lasix drip at 5 mL's per hour. Hopeful that A. fib and RVR will resolve with treatment of pneumonia and CHF. Plan: Hypokalemia -check potassium levels daily -supplement potassium as needed History of pyelonephritis -UA with micro and culture if indicated Type 2 diabetes mellitus, Renal insufficiency -hold metformin -accuchecks QID AC and HS -low dose sliding scale insulin -elementary supervisor to consult -monitor renal function daily -avoid nephrotoxic drugs Chronic anticoagulation, Atrial fibrillation with RVR, CHF (congestive heart failure) -continue Eliquis -heart rate is currently in the 1teens-120's-tachycardia is likely due to pneumonia and CHF -lasix drip at 5ml/hr -strict I&Os -daily weight -heart healthy diet -RUFINO hose for bilateral lower extremity edema. Pneumonia -Rocephin 2gm IV daily -Azithromycin 500mg IV daily -Blood cultures pending -follow daily labs including CBC and CRP -Procalcitonin level pending -Obtain sputum culture Primary care provider: Reji Lyman Social Science Analyst: Dr. Retana, Reji Lyman VTE prophylaxis: Eliquis GI: Pepcid Code Status: DNR/DNI Disposition: Case management and social service director for discharge planning. Patient will likely be here for 3 to 4 days due to diuresis and management of pneumonia, atrial fib, and CHF. - Mortality Measure Prognosis:: Good
[2021-01-22] MEDS: Famotidine 20 MG Tab PO SCH (13:17)
[2021-01-22] MEDS: Apixaban 5 MG Tab PO SCH ×2 (15:17→21:27)
[2021-01-22] MEDS ORDERED: Metoprolol Tartrate 5 MG in Sodium Chloride 0.9% 50 ML IV PRN (16:44)
[2021-01-22] MEDS ORDERED: Metoprolol Tartrate 5 MG/5 ML SDV IV PRN ×2 (16:50→19:09)
[2021-01-22] MEDS ORDERED: Lactated Ringers 250 ML IV SCH (17:15)
[2021-01-22] MEDS: Insulin Lispro 100 UNIT/ML 10 ML Vial SUBCUT SCH ×2 (17:46→21:28)
[2021-01-22] MEDS ORDERED: Piperacillin/Tazobactam 4.5 GM in Sodium Chloride 0.9% 100 ML IV ONE (18:00)
[2021-01-22] MEDS ORDERED: Vancomycin 1 GM, Vancomycin 500 MG in Sodium Chloride 0.9% 500 ML IV ONE (19:00)
[2021-01-22] MEDS ORDERED: Metoprolol Succinate 25 MG Tab.ER PO ONE ×2 (19:07→22:07)
[2021-01-22] MEDS ORDERED: Lactated Ringers 500 ML IV ONE (22:47)
[2021-01-23] MEDS ORDERED: Lactated Ringers 1,000 ML IV SCH ×2 (01:00→07:15)
[2021-01-23] MEDS: Piperacillin/Tazobactam 4.5 GM in Sodium Chloride 0.9% 100 ML IV SCH ×3 (01:16→18:47)
[2021-01-23] MEDS ORDERED: Metoprolol Tartrate 25 MG Tab PO SCH (08:00)
--- NOTE | 2021-01-23 08:02 | PCM.PN ---
- General Info Date of Service: 01/23/21 Admission Dx/Problem (Free Text): Admission Diagnosis/Problem Admission Diagnosis/Problem Pneumonia Functional Status: Reports: Pain Controlled, Tolerating Diet, Ambulating, Urinating, Incentive Spirometry, Other (acapella ). Denies: New Symptoms - Review of Systems General: Reports: Weakness (improved ), Fatigue (improved ). Denies: Fever, Malaise, Chills HEENT: Reports: No Symptoms. Denies: Headaches, Sore Throat Pulmonary: Reports: No Symptoms. Denies: Shortness of Breath, Cough, Sputum, Wheezing Cardiovascular: Reports: Edema (chronic ). Denies: Chest Pain, Palpitations, Dyspnea on Exertion Gastrointestinal: Reports: No Symptoms. Denies: Abdominal Pain, Constipation, Diarrhea, Nausea, Vomiting Genitourinary: Reports: No Symptoms. Denies: Pain Musculoskeletal: Reports: Back Pain (mild ) Skin: Reports: No Symptoms. Denies: Cyanosis Neurological: Reports: Difficulty Walking, Weakness. Denies: Confusion, Numbness, Pre-Existing Deficit, Tingling, Gait Disturbance Psychiatric: Reports: No Symptoms - Patient Data Vitals - Most Recent: Last Vital Signs Temp 97.0 F 01/23/21 04:00 Pulse 118 H 01/23/21 04:00 Resp 18 01/23/21 04:00 BP 110/96 H 01/23/21 04:00 Pulse Ox 94 L 01/23/21 04:00 Weight - Most Recent: 211 lb 1.6 oz I&O - Last 24 Hours: Intake & Output 01/22/21 01/23/21 01/23/21 22:59 06:59 14:59 Intake Total 715 2575 Output Total 550 350 Balance 165 2225 Lab Results Last 24 Hours: Laboratory Results - last 24 hr 01/22/21 01/22/21 01/22/21 Range/Units 06:26 07:39 09:10 WBC (4.23-9.07) K/mm3 RBC (4.63-6.08) M/mm3 Hgb (13.7-17.5) gm/dl Hct (40.1-51.0) % MCV (79.0-92.2) fl MCH (25.7-32.2) pg MCHC (32.2-35.5) g/dl RDW Std Deviation (35.1-43.9) fL Plt Count (163-337) K/mm3 MPV (9.4-12.3) fl Neut % (Auto) (34.0-67.9) % Lymph % (Auto) (21.8-53.1) % [place] % (Auto) (5.3-12.2) % Eos % (Auto) (0.8-7.0) Baso % (Auto) (0.1-1.2) % Neut # (Auto) (1.78-5.38) K/mm3 Lymph # (Auto) (1.32-3.57) K/mm3 [place] # (Auto) (0.30-0.82) K/mm3 Eos # (Auto) (0.04-0.54) K/mm3 Baso # (Auto) (0.01-0.08) K/mm3 Manual Slide Review Sodium (136-145) mEq/L Potassium (3.5-5.1) mEq/L Chloride (98-107) mEq/L Carbon Dioxide (21-32) mEq/L Anion Gap (5-15) BUN (7-18) mg/dL Creatinine (0.7-1.3) mg/dL Est Cr Clr Drug Dosing mL/min Estimated GFR (MDRD) (>60) mL/min BUN/Creatinine Ratio (14-18) Glucose (70-99) mg/dL POC Glucose (70-99) mg/dL Lactic Acid 1.4 (0.4-2.0) mmol/L Calcium (8.5-10.1) mg/dL Magnesium (1.8-2.4) mg/dL Total Bilirubin (0.2-1.0) mg/dL AST (15-37) U/L ALT (16-63) U/L Alkaline Phosphatase (46-116) U/L C-Reactive Protein (<1.0) mg/dL Total Protein (6.4-8.2) g/dl Albumin (3.4-5.0) g/dl Globulin gm/dL Albumin/Globulin Ratio (1-2) Procalcitonin 0.91 H ng/mL Urine Color (Yellow) Urine Appearance (Clear) Urine pH (5.0-8.0) Ur Specific [place] (1.005-1.030) Urine Protein (Negative) Urine Glucose (UA) (Negative) Urine Ketones (Negative) Urine Occult Blood (Negative) Urine Nitrite (Negative) Urine Bilirubin (Negative) Urine Urobilinogen (0.2-1.0) Ur Leukocyte Esterase (Negative) Urine RBC (0-5) /hpf Urine WBC (0-5) /hpf Ur Squamous Epith Cells (0-5) /hpf Urine Bacteria (FEW) /hpf Urine Mucus (FEW) /hpf SARS-CoV-2 RNA (MANJULA) Negative (NEGATIVE) 01/22/21 01/22/21 01/22/21 Range/Units 17:02 17:17 17:17 WBC (4.23-9.07) K/mm3 RBC (4.63-6.08) M/mm3 Hgb (13.7-17.5) gm/dl Hct (40.1-51.0) % MCV (79.0-92.2) fl MCH (25.7-32.2) pg MCHC (32.2-35.5) g/dl RDW Std Deviation (35.1-43.9) fL Plt Count (163-337) K/mm3 MPV (9.4-12.3) fl Neut % (Auto) (34.0-67.9) % Lymph % (Auto) (21.8-53.1) % [place] % (Auto) (5.3-12.2) % Eos % (Auto) (0.8-7.0) Baso % (Auto) (0.1-1.2) % Neut # (Auto) (1.78-5.38) K/mm3 Lymph # (Auto) (1.32-3.57) K/mm3 [place] # (Auto) (0.30-0.82) K/mm3 Eos # (Auto) (0.04-0.54) K/mm3 Baso # (Auto) (0.01-0.08) K/mm3 Manual Slide Review Sodium (136-145) mEq/L Potassium 4.5 (3.5-5.1) mEq/L Chloride (98-107) mEq/L Carbon Dioxide (21-32) mEq/L Anion Gap (5-15) BUN (7-18) mg/dL Creatinine (0.7-1.3) mg/dL Est Cr Clr Drug Dosing mL/min Estimated GFR (MDRD) (>60) mL/min BUN/Creatinine Ratio (14-18) Glucose (70-99) mg/dL POC Glucose 132 H (70-99) mg/dL Lactic Acid 1.7 (0.4-2.0) mmol/L Calcium (8.5-10.1) mg/dL Magnesium 2.2 (1.8-2.4) mg/dL Total Bilirubin (0.2-1.0) mg/dL AST (15-37) U/L ALT (16-63) U/L Alkaline Phosphatase (46-116) U/L C-Reactive Protein (<1.0) mg/dL Total Protein (6.4-8.2) g/dl Albumin (3.4-5.0) g/dl Globulin gm/dL Albumin/Globulin Ratio (1-2) Procalcitonin ng/mL Urine Color (Yellow) Urine Appearance (Clear) Urine pH (5.0-8.0) Ur Specific [place] (1.005-1.030) Urine Protein (Negative) Urine Glucose (UA) (Negative) Urine Ketones (Negative) Urine Occult Blood (Negative) Urine Nitrite (Negative) Urine Bilirubin (Negative) Urine Urobilinogen (0.2-1.0) Ur Leukocyte Esterase (Negative) Urine RBC (0-5) /hpf Urine WBC (0-5) /hpf Ur Squamous Epith Cells (0-5) /hpf Urine Bacteria (FEW) /hpf Urine Mucus (FEW) /hpf SARS-CoV-2 RNA (MANJULA) (NEGATIVE) 01/22/21 01/22/21 01/22/21 Range/Units 17:35 20:40 21:57 WBC (4.23-9.07) K/mm3 RBC (4.63-6.08) M/mm3 Hgb (13.7-17.5) gm/dl Hct (40.1-51.0) % MCV (79.0-92.2) fl MCH (25.7-32.2) pg MCHC (32.2-35.5) g/dl RDW Std Deviation (35.1-43.9) fL Plt Count (163-337) K/mm3 MPV (9.4-12.3) fl Neut % (Auto) (34.0-67.9) % Lymph % (Auto) (21.8-53.1) % [place] % (Auto) (5.3-12.2) % Eos % (Auto) (0.8-7.0) Baso % (Auto) (0.1-1.2) % Neut # (Auto) (1.78-5.38) K/mm3 Lymph # (Auto) (1.32-3.57) K/mm3 [place] # (Auto) (0.30-0.82) K/mm3 Eos # (Auto) (0.04-0.54) K/mm3 Baso # (Auto) (0.01-0.08) K/mm3 Manual Slide Review Sodium (136-145) mEq/L Potassium (3.5-5.1) mEq/L Chloride (98-107) mEq/L Carbon Dioxide (21-32) mEq/L Anion Gap (5-15) BUN (7-18) mg/dL Creatinine (0.7-1.3) mg/dL Est Cr Clr Drug Dosing mL/min Estimated GFR (MDRD) (>60) mL/min BUN/Creatinine Ratio (14-18) Glucose (70-99) mg/dL POC Glucose 166 H (70-99) mg/dL Lactic Acid 3.3 H* (0.4-2.0) mmol/L Calcium (8.5-10.1) mg/dL Magnesium (1.8-2.4) mg/dL Total Bilirubin (0.2-1.0) mg/dL AST (15-37) U/L ALT (16-63) U/L Alkaline Phosphatase (46-116) U/L C-Reactive Protein (<1.0) mg/dL Total Protein (6.4-8.2) g/dl Albumin (3.4-5.0) g/dl Globulin gm/dL Albumin/Globulin Ratio (1-2) Procalcitonin ng/mL Urine Color Yellow (Yellow) Urine Appearance Slt cloudy H (Clear) Urine pH 6.0 (5.0-8.0) Ur Specific [place] 1.020 (1.005-1.030) Urine Protein Trace H (Negative) Urine Glucose (UA) Negative (Negative) Urine Ketones Negative (Negative) Urine Occult Blood Trace-intact H (Negative) Urine Nitrite Negative (Negative) Urine Bilirubin Negative (Negative) Urine Urobilinogen 0.2 (0.2-1.0) Ur Leukocyte Esterase Negative (Negative) Urine RBC 0-5 (0-5) /hpf Urine WBC 0-5 (0-5) /hpf Ur Squamous Epith Cells 0-5 (0-5) /hpf Urine Bacteria Moderate H (FEW) /hpf Urine Mucus Not seen (FEW) /hpf SARS-CoV-2 RNA (MANJULA) (NEGATIVE) 01/23/21 01/23/21 01/23/21 Range/Units 06:08 06:08 06:08 WBC 15.93 H (4.23-9.07) K/mm3 RBC 4.48 L (4.63-6.08) M/mm3 Hgb 13.1 L (13.7-17.5) gm/dl Hct 40.2 (40.1-51.0) % MCV 89.7 (79.0-92.2) fl MCH 29.2 (25.7-32.2) pg MCHC 32.6 (32.2-35.5) g/dl RDW Std Deviation 47.8 H (35.1-43.9) fL Plt Count 247 (163-337) K/mm3 MPV 11.4 (9.4-12.3) fl Neut % (Auto) 83.6 H (34.0-67.9) % Lymph % (Auto) 6.8 L (21.8-53.1) % [place] % (Auto) 8.9 (5.3-12.2) % Eos % (Auto) 0.1 L (0.8-7.0) Baso % (Auto) 0.1 (0.1-1.2) % Neut # (Auto) 13.33 H (1.78-5.38) K/mm3 Lymph # (Auto) 1.08 L (1.32-3.57) K/mm3 [place] # (Auto) 1.41 H (0.30-0.82) K/mm3 Eos # (Auto) 0.01 L (0.04-0.54) K/mm3 Baso # (Auto) 0.02 (0.01-0.08) K/mm3 Manual Slide Review Normal smear Sodium 134 L (136-145) mEq/L Potassium 4.0 (3.5-5.1) mEq/L Chloride 99 (98-107) mEq/L Carbon Dioxide 20 L (21-32) mEq/L Anion Gap 19.0 H (5-15) BUN 44 H (7-18) mg/dL Creatinine 1.6 H (0.7-1.3) mg/dL Est Cr Clr Drug Dosing 42.16 mL/min Estimated GFR (MDRD) 43 (>60) mL/min BUN/Creatinine Ratio 27.5 H (14-18) Glucose 152 H (70-99) mg/dL POC Glucose (70-99) mg/dL Lactic Acid 2.2 H* (0.4-2.0) mmol/L Calcium 8.8 (8.5-10.1) mg/dL Magnesium 2.4 (1.8-2.4) mg/dL Total Bilirubin 0.7 (0.2-1.0) mg/dL AST 129 H (15-37) U/L ALT 149 H (16-63) U/L Alkaline Phosphatase 68 (46-116) U/L C-Reactive Protein 28.8 H* (<1.0) mg/dL Total Protein 7.6 (6.4-8.2) g/dl Albumin 2.8 L (3.4-5.0) g/dl Globulin 4.8 gm/dL Albumin/Globulin Ratio 0.6 L (1-2) Procalcitonin ng/mL Urine Color (Yellow) Urine Appearance (Clear) Urine pH (5.0-8.0) Ur Specific [place] (1.005-1.030) Urine Protein (Negative) Urine Glucose (UA) (Negative) Urine Ketones (Negative) Urine Occult Blood (Negative) Urine Nitrite (Negative) Urine Bilirubin (Negative) Urine Urobilinogen (0.2-1.0) Ur Leukocyte Esterase (Negative) Urine RBC (0-5) /hpf Urine WBC (0-5) /hpf Ur Squamous Epith Cells (0-5) /hpf Urine Bacteria (FEW) /hpf Urine Mucus (FEW) /hpf SARS-CoV-2 RNA (MANJULA) (NEGATIVE) [place] Results Last 24 Hours: Microbiology 01/22/21 15:30 Gram Stain - Preliminary Sputum - Expectorated Med Orders - Current: Current Medications Acetaminophen (Acetaminophen 325 Mg Tab) 650 mg PO Q4H PRN PRN Reason: Pain (Mild 1-3)/fever Apixaban (Apixaban 5 Mg Tab) 5 mg PO BID [facility] Last Admin: 01/22/21 21:27 Dose: 5 mg Documented by: Docusate Sodium (Docusate Sodium 100 Mg Cap) 100 mg PO DAILY PRN PRN Reason: Constipation Last Admin: 01/22/21 18:00 Dose: 100 mg Documented by: Famotidine (Famotidine 20 Mg Tab) 20 mg PO DAILY [facility] Last Admin: 01/22/21 13:17 Dose: 20 mg Documented by: Hydromorphone HCl (Hydromorphone 0.5 Mg/0.5 Ml Syringe) 0.5 mg IVPUSH Q2H PRN PRN Reason: Pain (severe 7-10) Piperacillin Sod/Tazobactam (Sod 4.5 gm/ Sodium Chloride) 100 mls @ 25 mls/hr IV Q8H [facility] Last Admin: 01/23/21 01:16 Dose: 25 mls/hr Documented by: Lactated Ringer's (Ringers, Lactated) 250 mls @ 125 mls/hr IV ASDIRECTED [facility] Last Admin: 01/22/21 17:30 Dose: 125 mls/hr Documented by: Vancomycin HCl 1 gm/Vancomycin HCl 250 mg/ Sodium Chloride 250 mls @ 157 mls/hr IV Q24H [facility] Lactated Ringer's (Ringers, Lactated) 1,000 mls @ 75 mls/hr IV ASDIRECTED [facility] Insulin Human Lispro (Insulin Lispro 100 Unit/Ml 10 Ml Vial) 0 unit SUBCUT QIDACANDBED [facility]; Protocol Last Admin: 01/22/21 21:28 Dose: 1 units Documented by: Metoprolol Tartrate (Metoprolol Tartrate 5 Mg/5 Ml Sdv) 5 mg IV Q4H PRN PRN Reason: Tachycardia Metoprolol Tartrate (Metoprolol Tartrate 25 Mg Tab) 12.5 mg PO Q12H [facility] Oxycodone HCl (Oxycodone 5 Mg Tab) 5 mg PO Q4H PRN PRN Reason: Pain (moderate 4-6) Sodium Chloride (Sodium Chloride 0.9% 10 Ml Syringe) 10 ml FLUSH ASDIRECTED PRN PRN Reason: Keep Vein Open Last Admin: 01/22/21 06:55 Dose: 10 ml Documented by: Vancomycin HCl (Pharmacy To Dose - Vancomycin) 0 dose .XX ASDIRECTED PRN PRN Reason: RX TO DOSE VANCOMYCIN Discontinued Medications Diltiazem HCl (Diltiazem 120 Mg Cap.Cd) 120 mg PO ONETIME ONE Stop: 01/22/21 06:37 Last Admin: 01/22/21 06:55 Dose: 120 mg Documented by: Furosemide (Furosemide 40 Mg Tab) 40 mg PO ONETIME ONE Stop: 01/22/21 06:50 Last Admin: 01/22/21 06:56 Dose: 40 mg Documented by: Furosemide (Furosemide 40 Mg/4 Ml Vial) 40 mg IVPUSH NOW ONE Stop: 01/22/21 08:26 Last Admin: 01/22/21 08:35 Dose: 40 mg Documented by: Diltiazem HCl 100 mg/ Sodium (Chloride) 100 mls @ 5 mls/hr IV TITRATE JEMIMA; Protocol Last Admin: 01/22/21 08:35 Dose: 5 mg/hr, 5 mls/hr Documented by: Ceftriaxone Sodium 2 gm/ (Sodium Chloride) 100 mls @ 200 mls/hr IV ONETIME ONE Stop: 01/22/21 09:04 Last Admin: 01/22/21 08:43 Dose: 200 mls/hr Documented by: Azithromycin 500 mg/ Sodium (Chloride) 250 mls @ 250 mls/hr IV ONETIME ONE Stop: 01/22/21 10:04 Last Admin: 01/22/21 09:28 Dose: 250 mls/hr Documented by: Furosemide 100 mg/ Sodium (Chloride) 100 mls @ 5 mls/hr IV CONTINUOUS JEMIMA; Protocol Azithromycin 500 mg/ Sodium (Chloride) 250 mls @ 250 mls/hr IV Q24H JEMIMA Last Admin: 01/22/21 13:55 Dose: Not Given Documented by: Ceftriaxone Sodium 2 gm/ (Sodium Chloride) 100 mls @ 200 mls/hr IV ONETIME ONE Stop: 01/22/21 12:46 Last Admin: 01/22/21 13:03 Dose: 200 mls/hr Documented by: Furosemide 100 mg/ Sodium (Chloride) 100 mls @ 5 mls/hr IV CONTINUOUS JEMIMA; Protocol Last Admin: 01/22/21 13:15 Dose: 5 ml/hr, 5 mls/hr Documented by: Azithromycin 500 mg/ Sodium (Chloride) 250 mls @ 250 mls/hr IV Q24H [facility] Ceftriaxone Sodium 1 gm/ (Sodium Chloride) 100 mls @ 200 mls/hr IV Q24H [facility] Magnesium Sulfate/Dextrose 1 (gm/ Premix) 100 mls @ 100 mls/hr IV ONETIME ONE Stop: 01/22/21 18:14 Last Admin: 01/22/21 17:25 Dose: 100 mls/hr Documented by: Piperacillin Sod/Tazobactam (Sod 4.5 gm/ Sodium Chloride) 100 mls @ 200 mls/hr IV ONETIME ONE Stop: 01/22/21 18:29 Last Admin: 01/22/21 17:25 Dose: 200 mls/hr Documented by: Vancomycin HCl 1 gm/Vancomycin HCl 500 mg/ Sodium Chloride 500 mls @ 250 mls/hr IV ONETIME ONE Stop: 01/22/21 20:59 Last Admin: 01/22/21 18:33 Dose: 250 mls/hr Documented by: Lactated Ringer's (Ringers, Lactated) 500 mls @ 250 mls/hr IV ONETIME ONE Stop: 01/23/21 00:46 Last Admin: 01/22/21 23:00 Dose: 250 mls/hr Documented by: Lactated Ringer's (Ringers, Lactated) 1,000 mls @ 100 mls/hr IV ASDIRECTED [facility] Last Admin: 01/23/21 01:17 Dose: 100 mls/hr Documented by: Meclizine HCl (Meclizine 12.5 Mg Tab) 12.5 mg PO ONETIME ONE Stop: 01/22/21 06:44 Last Admin: 01/22/21 06:55 Dose: 12.5 mg Documented by: Metoprolol Succinate (Metoprolol Succinate 50 Mg Tab.Er) 75 mg PO ONETIME ONE Stop: 01/22/21 06:37 Last Admin: 01/22/21 06:54 Dose: 75 mg Documented by: Metoprolol Succinate (Metoprolol Succinate 25 Mg Tab.Er) 12.5 mg PO ONETIME ONE Stop: 01/22/21 19:08 Last Admin: 01/22/21 19:38 Dose: 12.5 mg Documented by: Metoprolol Succinate (Metoprolol Succinate 25 Mg Tab.Er) 25 mg PO ONETIME ONE Stop: 01/22/21 22:08 Last Admin: 01/22/21 22:21 Dose: 25 mg Documented by: Metoprolol Tartrate (Metoprolol Tartrate 5 Mg/5 Ml Sdv) 5 mg IV Q6H PRN PRN Reason: Tachycardia Last Admin: 01/22/21 17:06 Dose: 5 mg Documented by: Potassium Chloride (Potassium Chloride 20 Meq Tab.Er) 40 meq PO ONETIME ONE Stop: 01/22/21 12:21 Last Admin: 01/22/21 13:17 Dose: 40 meq Documented by: Potassium Chloride (Potassium Chloride 20 Meq Tab.Er) 40 meq PO ONETIME ONE Stop: 01/22/21 16:01 Last Admin: 01/22/21 17:04 Dose: 40 meq Documented by: - Exam Quality Assessment: DVT Prophylaxis. No: Supplemental Oxygen, Urine Catheter General: Alert, Oriented, Cooperative, No Acute Distress HEENT: Pupils Equal, Pupils Reactive, Mucous Membr. Moist/[place] Neck: Supple, Trachea Midline Lungs: Clear to Auscultation, Normal Respiratory Effort Cardiovascular: Irregular Rhythm, Tachycardia GI/Abdominal Exam: Normal Bowel Sounds, Soft, Non-Tender, No Distention (Male) Exam: Deferred Back Exam: Normal Inspection, Full Range of Motion Extremities: Normal Inspection, Normal Range of Motion, Non-Tender, Normal Capillary Refill, Pedal Edema (trace ) Skin: Warm, Dry, Intact Neurological: No New Focal Deficit Psy/Mental Status: Alert, Normal Affect, Normal Mood - Patient Data Lab Results Last 24 hrs: Laboratory Results - last 24 hr 01/22/21 01/22/21 01/22/21 Range/Units 06:26 07:39 09:10 WBC (4.23-9.07) K/mm3 RBC (4.63-6.08) M/mm3 Hgb (13.7-17.5) gm/dl Hct (40.1-51.0) % MCV (79.0-92.2) fl MCH (25.7-32.2) pg MCHC (32.2-35.5) g/dl RDW Std Deviation (35.1-43.9) fL Plt Count (163-337) K/mm3 MPV (9.4-12.3) fl Neut % (Auto) (34.0-67.9) % Lymph % (Auto) (21.8-53.1) % [place] % (Auto) (5.3-12.2) % Eos % (Auto) (0.8-7.0) Baso % (Auto) (0.1-1.2) % Neut # (Auto) (1.78-5.38) K/mm3 Lymph # (Auto) (1.32-3.57) K/mm3 [place] # (Auto) (0.30-0.82) K/mm3 Eos # (Auto) (0.04-0.54) K/mm3 Baso # (Auto) (0.01-0.08) K/mm3 Manual Slide Review Sodium (136-145) mEq/L Potassium (3.5-5.1) mEq/L Chloride (98-107) mEq/L Carbon Dioxide (21-32) mEq/L Anion Gap (5-15) BUN (7-18) mg/dL Creatinine (0.7-1.3) mg/dL Est Cr Clr Drug Dosing mL/min Estimated GFR (MDRD) (>60) mL/min BUN/Creatinine Ratio (14-18) Glucose (70-99) mg/dL POC Glucose (70-99) mg/dL Lactic Acid 1.4 (0.4-2.0) mmol/L Calcium (8.5-10.1) mg/dL Magnesium (1.8-2.4) mg/dL Total Bilirubin (0.2-1.0) mg/dL AST (15-37) U/L ALT (16-63) U/L Alkaline Phosphatase (46-116) U/L C-Reactive Protein (<1.0) mg/dL Total Protein (6.4-8.2) g/dl Albumin (3.4-5.0) g/dl Globulin gm/dL Albumin/Globulin Ratio (1-2) Procalcitonin 0.91 H ng/mL Urine Color (Yellow) Urine Appearance (Clear) Urine pH (5.0-8.0) Ur Specific [place] (1.005-1.030) Urine Protein (Negative) Urine Glucose (UA) (Negative) Urine Ketones (Negative) Urine Occult Blood (Negative) Urine Nitrite (Negative) Urine Bilirubin (Negative) Urine Urobilinogen (0.2-1.0) Ur Leukocyte Esterase (Negative) Urine RBC (0-5) /hpf Urine WBC (0-5) /hpf Ur Squamous Epith Cells (0-5) /hpf Urine Bacteria (FEW) /hpf Urine Mucus (FEW) /hpf SARS-CoV-2 RNA (MANJULA) Negative (NEGATIVE) 01/22/21 01/22/21 01/22/21 Range/Units 17:02 17:17 17:17 WBC (4.23-9.07) K/mm3 RBC (4.63-6.08) M/mm3 Hgb (13.7-17.5) gm/dl Hct (40.1-51.0) % MCV (79.0-92.2) fl MCH (25.7-32.2) pg MCHC (32.2-35.5) g/dl RDW Std Deviation (35.1-43.9) fL Plt Count (163-337) K/mm3 MPV (9.4-12.3) fl Neut % (Auto) (34.0-67.9) % Lymph % (Auto) (21.8-53.1) % [place] % (Auto) (5.3-12.2) % Eos % (Auto) (0.8-7.0) Baso % (Auto) (0.1-1.2) % Neut # (Auto) (1.78-5.38) K/mm3 Lymph # (Auto) (1.32-3.57) K/mm3 [place] # (Auto) (0.30-0.82) K/mm3 Eos # (Auto) (0.04-0.54) K/mm3 Baso # (Auto) (0.01-0.08) K/mm3 Manual Slide Review Sodium (136-145) mEq/L Potassium 4.5 (3.5-5.1) mEq/L Chloride (98-107) mEq/L Carbon Dioxide (21-32) mEq/L Anion Gap (5-15) BUN (7-18) mg/dL Creatinine (0.7-1.3) mg/dL Est Cr Clr Drug Dosing mL/min Estimated GFR (MDRD) (>60) mL/min BUN/Creatinine Ratio (14-18) Glucose (70-99) mg/dL POC Glucose 132 H (70-99) mg/dL Lactic Acid 1.7 (0.4-2.0) mmol/L Calcium (8.5-10.1) mg/dL Magnesium 2.2 (1.8-2.4) mg/dL Total Bilirubin (0.2-1.0) mg/dL AST (15-37) U/L ALT (16-63) U/L Alkaline Phosphatase (46-116) U/L C-Reactive Protein (<1.0) mg/dL Total Protein (6.4-8.2) g/dl Albumin (3.4-5.0) g/dl Globulin gm/dL Albumin/Globulin Ratio (1-2) Procalcitonin ng/mL Urine Color (Yellow) Urine Appearance (Clear) Urine pH (5.0-8.0) Ur Specific [place] (1.005-1.030) Urine Protein (Negative) Urine Glucose (UA) (Negative) Urine Ketones (Negative) Urine Occult Blood (Negative) Urine Nitrite (Negative) Urine Bilirubin (Negative) Urine Urobilinogen (0.2-1.0) Ur Leukocyte Esterase (Negative) Urine RBC (0-5) /hpf Urine WBC (0-5) /hpf Ur Squamous Epith Cells (0-5) /hpf Urine Bacteria (FEW) /hpf Urine Mucus (FEW) /hpf SARS-CoV-2 RNA (MANJULA) (NEGATIVE) 01/22/21 01/22/21 01/22/21 Range/Units 17:35 20:40 21:57 WBC (4.23-9.07) K/mm3 RBC (4.63-6.08) M/mm3 Hgb (13.7-17.5) gm/dl Hct (40.1-51.0) % MCV (79.0-92.2) fl MCH (25.7-32.2) pg MCHC (32.2-35.5) g/dl RDW Std Deviation (35.1-43.9) fL Plt Count (163-337) K/mm3 MPV (9.4-12.3) fl Neut % (Auto) (34.0-67.9) % Lymph % (Auto) (21.8-53.1) % [place] % (Auto) (5.3-12.2) % Eos % (Auto) (0.8-7.0) Baso % (Auto) (0.1-1.2) % Neut # (Auto) (1.78-5.38) K/mm3 Lymph # (Auto) (1.32-3.57) K/mm3 [place] # (Auto) (0.30-0.82) K/mm3 Eos # (Auto) (0.04-0.54) K/mm3 Baso # (Auto) (0.01-0.08) K/mm3 Manual Slide Review Sodium (136-145) mEq/L Potassium (3.5-5.1) mEq/L Chloride (98-107) mEq/L Carbon Dioxide (21-32) mEq/L Anion Gap (5-15) BUN (7-18) mg/dL Creatinine (0.7-1.3) mg/dL Est Cr Clr Drug Dosing mL/min Estimated GFR (MDRD) (>60) mL/min BUN/Creatinine Ratio (14-18) Glucose (70-99) mg/dL POC Glucose 166 H (70-99) mg/dL Lactic Acid 3.3 H* (0.4-2.0) mmol/L Calcium (8.5-10.1) mg/dL Magnesium (1.8-2.4) mg/dL Total Bilirubin (0.2-1.0) mg/dL AST (15-37) U/L ALT (16-63) U/L Alkaline Phosphatase (46-116) U/L C-Reactive Protein (<1.0) mg/dL Total Protein (6.4-8.2) g/dl Albumin (3.4-5.0) g/dl Globulin gm/dL Albumin/Globulin Ratio (1-2) Procalcitonin ng/mL Urine Color Yellow (Yellow) Urine Appearance Slt cloudy H (Clear) Urine pH 6.0 (5.0-8.0) Ur Specific [place] 1.020 (1.005-1.030) Urine Protein Trace H (Negative) Urine Glucose (UA) Negative (Negative) Urine Ketones Negative (Negative) Urine Occult Blood Trace-intact H (Negative) Urine Nitrite Negative (Negative) Urine Bilirubin Negative (Negative) Urine Urobilinogen 0.2 (0.2-1.0) Ur Leukocyte Esterase Negative (Negative) Urine RBC 0-5 (0-5) /hpf Urine WBC 0-5 (0-5) /hpf Ur Squamous Epith Cells 0-5 (0-5) /hpf Urine Bacteria Moderate H (FEW) /hpf Urine Mucus Not seen (FEW) /hpf SARS-CoV-2 RNA (MANJULA) (NEGATIVE) 01/23/21 01/23/21 01/23/21 Range/Units 06:08 06:08 06:08 WBC 15.93 H (4.23-9.07) K/mm3 RBC 4.48 L (4.63-6.08) M/mm3 Hgb 13.1 L (13.7-17.5) gm/dl Hct 40.2 (40.1-51.0) % MCV 89.7 (79.0-92.2) fl MCH 29.2 (25.7-32.2) pg MCHC 32.6 (32.2-35.5) g/dl RDW Std Deviation 47.8 H (35.1-43.9) fL Plt Count 247 (163-337) K/mm3 MPV 11.4 (9.4-12.3) fl Neut % (Auto) 83.6 H (34.0-67.9) % Lymph % (Auto) 6.8 L (21.8-53.1) % [place] % (Auto) 8.9 (5.3-12.2) % Eos % (Auto) 0.1 L (0.8-7.0) Baso % (Auto) 0.1 (0.1-1.2) % Neut # (Auto) 13.33 H (1.78-5.38) K/mm3 Lymph # (Auto) 1.08 L (1.32-3.57) K/mm3 [place] # (Auto) 1.41 H (0.30-0.82) K/mm3 Eos # (Auto) 0.01 L (0.04-0.54) K/mm3 Baso # (Auto) 0.02 (0.01-0.08) K/mm3 Manual Slide Review Normal smear Sodium 134 L (136-145) mEq/L Potassium 4.0 (3.5-5.1) mEq/L Chloride 99 (98-107) mEq/L Carbon Dioxide 20 L (21-32) mEq/L Anion Gap 19.0 H (5-15) BUN 44 H (7-18) mg/dL Creatinine 1.6 H (0.7-1.3) mg/dL Est Cr Clr Drug Dosing 42.16 mL/min Estimated GFR (MDRD) 43 (>60) mL/min BUN/Creatinine Ratio 27.5 H (14-18) Glucose 152 H (70-99) mg/dL POC Glucose (70-99) mg/dL Lactic Acid 2.2 H* (0.4-2.0) mmol/L Calcium 8.8 (8.5-10.1) mg/dL Magnesium 2.4 (1.8-2.4) mg/dL Total Bilirubin 0.7 (0.2-1.0) mg/dL AST 129 H (15-37) U/L ALT 149 H (16-63) U/L Alkaline Phosphatase 68 (46-116) U/L C-Reactive Protein 28.8 H* (<1.0) mg/dL Total Protein 7.6 (6.4-8.2) g/dl Albumin 2.8 L (3.4-5.0) g/dl Globulin 4.8 gm/dL Albumin/Globulin Ratio 0.6 L (1-2) Procalcitonin ng/mL Urine Color (Yellow) Urine Appearance (Clear) Urine pH (5.0-8.0) Ur Specific [place] (1.005-1.030) Urine Protein (Negative) Urine Glucose (UA) (Negative) Urine Ketones (Negative) Urine Occult Blood (Negative) Urine Nitrite (Negative) Urine Bilirubin (Negative) Urine Urobilinogen (0.2-1.0) Ur Leukocyte Esterase (Negative) Urine RBC (0-5) /hpf Urine WBC (0-5) /hpf Ur Squamous Epith Cells (0-5) /hpf Urine Bacteria (FEW) /hpf Urine Mucus (FEW) /hpf SARS-CoV-2 RNA (MANJULA) (NEGATIVE) Result Diagrams: 01/23/21 06:08 01/23/21 06:08 [place] Results Last 24 hrs: Microbiology 01/22/21 15:30 Gram Stain - Preliminary Sputum - Expectorated Sepsis Event Note - Evaluation Sepsis Screening Result: No Definite Risk - Focused Exam Vital Signs: Vital Signs Temp Pulse Pulse Resp BP BP Pulse Ox 01/23/21 04:00 97.0 F 118 H 18 110/96 H 94 L 01/23/21 01:35 114 H 104/56 L 08/11/21 01:05 108 H 85/71 L 01/22/21 23:01 95.8 F L 116 H 19 93/79 93 L 01/22/21 22:21 135 H 93/79 - Problem List & Annotations (1) Hypokalemia SNOMED Code(s): 91236734 Code(s): E87.6 - HYPOKALEMIA Status: Resolved Priority: High Current Visit: Yes (2) Pneumonia SNOMED Code(s): 125633508 Code(s): J18.9 - PNEUMONIA, UNSPECIFIED ORGANISM Status: Acute Priority: High Current Visit: Yes Qualifiers: Pneumonia type: due to unspecified organism Laterality: left Lung location: lower lobe of lung Qualified Code(s): J18.9 - Pneumonia, unspecified organism (3) Atrial fibrillation with RVR SNOMED Code(s): 283070327635448 Code(s): I48.91 - UNSPECIFIED ATRIAL FIBRILLATION Status: Chronic Priority: High Current Visit: Yes (4) CHF (congestive heart failure) SNOMED Code(s): 09398366 Code(s): I50.9 - HEART FAILURE, UNSPECIFIED Status: Chronic Priority: High Current Visit: Yes Qualifiers: Heart failure type: unspecified Heart failure chronicity: acute on chronic Qualified Code(s): I50.9 - Heart failure, unspecified (5) Chronic anticoagulation SNOMED Code(s): 414106053 Code(s): Z79.01 - INTERMEDIATE (CURRENT) USE OF ANTICOAGULANTS Status: Chronic Priority: Medium Current Visit: Yes (6) Type 2 diabetes mellitus SNOMED Code(s): [id number] Code(s): E11.9 - TYPE 2 DIABETES MELLITUS WITHOUT COMPLICATIONS Status: Chronic Priority: High Current Visit: Yes Qualifiers: Diabetes mellitus supervisor intermediates insulin use: without supervisor intermediates use Diabetes mellitus complication status: without complication Qualified Code(s): E11.9 - Type 2 diabetes mellitus without complications (7) History of pyelonephritis SNOMED Code(s): 056229993 Code(s): Z87.448 - PERSONAL HISTORY OF OTHER DISEASES OF URINARY SYSTEM Status: Acute Priority: Medium Current Visit: No (8) Renal insufficiency SNOMED Code(s): 852350427, 482601513 Code(s): N28.9 - DISORDER OF KIDNEY AND URETER, UNSPECIFIED Status: Chronic Priority: Medium Current Visit: No (9) Sepsis SNOMED Code(s): 46111781 Code(s): A41.9 - SEPSIS, UNSPECIFIED ORGANISM Status: Acute Priority: High Current Visit: Yes Qualifiers: Sepsis type: sepsis due to unspecified organism Sepsis acute organ dysfun ction status: with acute organ dysfunction Severe sepsis acute organ dysf unction type: acute renal failure Acute renal failure type: unspecified Severe sepsis shock status: without septic shock Qualified Code(s): A41.9 - Sepsis, unspecified organism; R65.20 - Severe sepsis without septic shock; N17.9 - Acute kidney failure, unspecified (10) Elevated lactic acid level SNOMED Code(s): 0334665 Code(s): R79.89 - OTHER SPECIFIED ABNORMAL FINDINGS OF BLOOD CHEMISTRY Status: Acute Priority: High Current Visit: Yes (11) Hyponatremia SNOMED Code(s): 23190933 Code(s): E87.1 - HYPO-OSMOLALITY AND HYPONATREMIA Status: Acute Priority: Medium Current Visit: Yes (12) Elevated brain natriuretic peptide (BNP) level SNOMED Code(s): 079131455, 967499595 Code(s): R79.89 - OTHER SPECIFIED ABNORMAL FINDINGS OF BLOOD CHEMISTRY Status: Acute Priority: High Current Visit: Yes (13) Leukocytosis SNOMED Code(s): 637867185, 357195417 Code(s): D72.829 - ELEVATED WHITE BLOOD CELL COUNT, UNSPECIFIED Status: Acute Priority: High Current Visit: Yes Qualifiers: Leukocytosis type: unspecified Qualified Code(s): D72.829 - Elevated white blood cell count, unspecified (14) Acute renal injury SNOMED Code(s): 60209024, 76987651 Code(s): N17.9 - ACUTE KIDNEY FAILURE, UNSPECIFIED Status: Acute Priority: High Current Visit: Yes - Problem List Review Problem List Initiated/Reviewed/Updated: Yes - Assessment Assessment:: Assessment day of admit: 70-year-old male who presents with fatigue, cough productive of yellow-colored sputum x1 week, fever, chills and decreased appetite. Was found to have pneumon ia on the left lower lobe and subsequently an atrial fib with RVR. History of heart failure with a proBNP of 20,453. Recently treated for pyelonephritis with his last dose of antibiotic taken yesterday. He was treated in the emergency department with IV and p.o. Lasix. Chest x-ray subsequently revealed pneumonia of the left lower lobe. Blood cultures were collected and he was started on Rocephin and Zithromax IV. Patient subsequently admitted to ICU. He will be placed on a Lasix drip at 5 mL's per hour. Hopeful that A. fib and RVR will resolve with treatment of pneumonia and CHF. 01/23/2021: - Plan Plan:: Pneumonia Leukocytosis Elevated lactic acid level Sepsis -Discontinued Rocephin and azithromycin -Started on vancomycin and Zosyn due to lactic acidosis, sepsis -Blood cultures pending -IS/Acapella -RT consultation -Follow daily labs including CBC and CRP -Repeat procalcitonin today -Sputum culture obtained -Repeat lactic acid -Repeat CXR today Atrial fibrillation with RVR CHF (congestive heart failure) Chronic anticoagulation Elevated brain natriuretic peptide (BNP) level -Continue Eliquis -Heart rate is currently in the 100-120's-tachycardia is likely due to pneumonia and CHF -Discontinue lasix drip due to LASHAWN and lactic acidosis -Strict I&Os -Daily weight -Low sodium diet -1.5L fluid restriction -RUFINO hose for bilateral lower extremity edema. -Scheduled low dose metoprolol to not blunt bodies response to sepsis -PRN IVP metoprolol for sustained HR >120 -Caution with IV fluids -Telemetry Type 2 diabetes mellitus -Hold metformin -Accuchecks QID AC and HS -Low dose sliding scale insulin -Ghost Writer to consult Renal insufficiency Hyponatremia Acute renal injury -Monitor renal function daily -Avoid nephrotoxic drugs -Michael hydration -Caution due to CHF with very low EF Hypokalemia, resolved -Monitor -Supplement potassium as needed History of pyelonephritis -No acute concerns Primary care provider: Dr. Robles Recreational Leader: Reji Meeks VTE prophylaxis: Eliquis GI: Pepcid Code Status: DNR/DNI Disposition: Case management and licensed master social worker for discharge planning. Patient will likely be here for 3 to 4 days due to diuresis and management of pneumonia, atrial fib, and CHF.
[2021-01-23] MEDS: Famotidine 20 MG Tab PO SCH (08:14)
[2021-01-23] MEDS: Apixaban 5 MG Tab PO SCH ×2 (08:17→20:45)
[2021-01-23] MEDS: Insulin Lispro 100 UNIT/ML 10 ML Vial SUBCUT SCH ×4 (08:17→21:37)
[2021-01-23] MEDS ORDERED: cefTRIAXone 1 GM in Sodium Chloride 0.9% 100 ML IV SCH (09:00)
[2021-01-23] MEDS ORDERED: Azithromycin 500 MG in Sodium Chloride 0.9% 250 ML IV SCH (10:00)
--- NOTE | 2021-01-23 10:09 | CR ---
Chest: Portable view of the chest was obtained. Comparison: Prior chest x-ray of 01/22/21. Slight increased density within left lung base is seen which is stable. Lung markings are minimally increased which are stable. Heart size and mediastinum are stable. Degenerative change is scattered within the spine. Impression: 1. Findings as noted above. 2. No change is appreciated from recent chest x-ray. Diagnostic code #2
[2021-01-23] MEDS ORDERED: Metoprolol Tartrate 25 MG Tab PO ONE ×2 (16:02→18:22)
[2021-01-23] MEDS ORDERED: Vancomycin 1 GM, Vancomycin 250 MG in Sodium Chloride 0.9% 250 ML IV SCH (19:00)
[2021-01-23] MEDS ORDERED: Metoprolol Succinate 25 MG Tab.ER PO ONE (22:24)
[2021-01-23] MEDS: Melatonin 3 MG Tab PO PRN (22:36)
[2021-01-24] MEDS: Piperacillin/Tazobactam 4.5 GM in Sodium Chloride 0.9% 100 ML IV SCH ×3 (01:48→18:10)
[2021-01-24] MEDS: Insulin Lispro 100 UNIT/ML 10 ML Vial SUBCUT SCH ×4 (06:17→21:04)
--- NOTE | 2021-01-24 07:08 | PCM.PN ---
- General Info Date of Service: 01/24/21 Admission Dx/Problem (Free Text): Admission Diagnosis/Problem Admission Diagnosis/Problem Pneumonia Functional Status: Reports: Pain Controlled, Tolerating Diet, Ambulating, Urinating, Incentive Spirometry, Other ([place] ). Denies: New Symptoms - Review of Systems General: Reports: Weakness (improved ). Denies: Fever, Fatigue, Malaise, Chills HEENT: Reports: No Symptoms. Denies: Headaches, Sore Throat Pulmonary: Reports: No Symptoms. Denies: Shortness of Breath, Cough, Sputum, Wheezing Cardiovascular: Reports: Dyspnea on Exertion, Edema. Denies: Chest Pain, Palpitations Gastrointestinal: Reports: No Symptoms. Denies: Abdominal Pain, Constipation, Diarrhea, Nausea, Vomiting Genitourinary: Reports: No Symptoms. Denies: Urgency Musculoskeletal: Reports: No Symptoms Skin: Reports: No Symptoms. Denies: Cyanosis Neurological: Reports: Confusion (mild at times ). Denies: Pre-Existing Deficit, Difficulty Walking, Gait Disturbance Psychiatric: Reports: No Symptoms - Patient Data Vitals - Most Recent: Last Vital Signs Temp 96.8 F L 01/24/21 04:00 Pulse 117 H 01/23/21 22:35 Resp 16 01/24/21 04:00 BP 99/68 01/24/21 04:00 Pulse Ox 95 01/24/21 04:00 Weight - Most Recent: 212 lb 4.8 oz I&O - Last 24 Hours: Intake & Output 01/23/21 01/24/21 01/24/21 22:59 06:59 14:59 Intake Total 1287 750 Output Total 975 Balance 1287 -225 Lab Results Last 24 Hours: Laboratory Results - last 24 hr 01/23/21 01/23/21 01/23/21 Range/Units 07:37 11:01 11:24 WBC (4.23-9.07) K/mm3 RBC (4.63-6.08) M/mm3 Hgb (13.7-17.5) gm/dl Hct (40.1-51.0) % MCV (79.0-92.2) fl MCH (25.7-32.2) pg MCHC (32.2-35.5) g/dl RDW Std Deviation (35.1-43.9) fL Plt Count (163-337) K/mm3 MPV (9.4-12.3) fl Neut % (Auto) (34.0-67.9) % Lymph % (Auto) (21.8-53.1) % [place] % (Auto) (5.3-12.2) % Eos % (Auto) (0.8-7.0) Baso % (Auto) (0.1-1.2) % Neut # (Auto) (1.78-5.38) K/mm3 Lymph # (Auto) (1.32-3.57) K/mm3 [place] # (Auto) (0.30-0.82) K/mm3 Eos # (Auto) (0.04-0.54) K/mm3 Baso # (Auto) (0.01-0.08) K/mm3 Manual Slide Review POC Glucose 149 H (70-99) mg/dL Lactic Acid 2.0 (0.4-2.0) mmol/L Procalcitonin 0.81 H ng/mL 01/23/21 01/23/21 01/23/21 Range/Units 17:30 21:04 21:15 WBC (4.23-9.07) K/mm3 RBC (4.63-6.08) M/mm3 Hgb (13.7-17.5) gm/dl Hct (40.1-51.0) % MCV (79.0-92.2) fl MCH (25.7-32.2) pg MCHC (32.2-35.5) g/dl RDW Std Deviation (35.1-43.9) fL Plt Count (163-337) K/mm3 MPV (9.4-12.3) fl Neut % (Auto) (34.0-67.9) % Lymph % (Auto) (21.8-53.1) % [place] % (Auto) (5.3-12.2) % Eos % (Auto) (0.8-7.0) Baso % (Auto) (0.1-1.2) % Neut # (Auto) (1.78-5.38) K/mm3 Lymph # (Auto) (1.32-3.57) K/mm3 [place] # (Auto) (0.30-0.82) K/mm3 Eos # (Auto) (0.04-0.54) K/mm3 Baso # (Auto) (0.01-0.08) K/mm3 Manual Slide Review POC Glucose 127 H 133 H (70-99) mg/dL Lactic Acid 1.6 (0.4-2.0) mmol/L Procalcitonin ng/mL 01/24/21 01/24/21 Range/Units 06:13 06:14 WBC 11.84 H (4.23-9.07) K/mm3 RBC 4.30 L (4.63-6.08) M/mm3 Hgb 12.8 L (13.7-17.5) gm/dl Hct 38.8 L (40.1-51.0) % MCV 90.2 (79.0-92.2) fl MCH 29.8 (25.7-32.2) pg MCHC 33.0 (32.2-35.5) g/dl RDW Std Deviation 47.5 H (35.1-43.9) fL Plt Count 252 (163-337) K/mm3 MPV 11.9 (9.4-12.3) fl Neut % (Auto) 79.4 H (34.0-67.9) % Lymph % (Auto) 9.3 L (21.8-53.1) % [place] % (Auto) 9.7 (5.3-12.2) % Eos % (Auto) 0.8 (0.8-7.0) Baso % (Auto) 0.3 (0.1-1.2) % Neut # (Auto) 9.40 H (1.78-5.38) K/mm3 Lymph # (Auto) 1.10 L (1.32-3.57) K/mm3 [place] # (Auto) 1.15 H (0.30-0.82) K/mm3 Eos # (Auto) 0.10 (0.04-0.54) K/mm3 Baso # (Auto) 0.03 (0.01-0.08) K/mm3 Manual Slide Review Normal smear POC Glucose 113 H (70-99) mg/dL Lactic Acid (0.4-2.0) mmol/L Procalcitonin ng/mL [place] Results Last 24 Hours: Microbiology 01/22/21 09:26 Blood Culture - Preliminary Blood - Venous - Lab Draw 01/22/21 09:10 Blood Culture - Preliminary Blood - Venous - Lab Draw 01/22/21 15:30 Gram Stain - Final Sputum - Expectorated 01/22/21 15:30 Gram Stain - Final Sputum - Expectorated Med Orders - Current: Current Medications Acetaminophen (Acetaminophen 325 Mg Tab) 650 mg PO Q4H PRN PRN Reason: Pain (Mild 1-3)/fever Apixaban (Apixaban 5 Mg Tab) 5 mg PO BID [facility] Last Admin: 01/23/21 20:45 Dose: 5 mg Documented by: Docusate Sodium (Docusate Sodium 100 Mg Cap) 100 mg PO DAILY PRN PRN Reason: Constipation Last Admin: 01/22/21 18:00 Dose: 100 mg Documented by: Famotidine (Famotidine 20 Mg Tab) 20 mg PO DAILY [facility] Last Admin: 01/23/21 08:14 Dose: 20 mg Documented by: Hydromorphone HCl (Hydromorphone 0.5 Mg/0.5 Ml Syringe) 0.5 mg IVPUSH Q2H PRN PRN Reason: Pain (severe 7-10) Piperacillin Sod/Tazobactam (Sod 4.5 gm/ Sodium Chloride) 100 mls @ 25 mls/hr IV Q8H [facility] Last Admin: 01/24/21 01:48 Dose: 25 mls/hr Documented by: Vancomycin HCl 1 gm/Vancomycin HCl 250 mg/ Sodium Chloride 250 mls @ 157 mls/hr IV Q24H [facility] Last Admin: 01/23/21 18:50 Dose: 157 mls/hr Documented by: Insulin Human Lispro (Insulin Lispro 100 Unit/Ml 10 Ml Vial) 0 unit SUBCUT QIDACANDBED [facility]; Protocol Last Admin: 01/24/21 06:17 Dose: Not Given Documented by: Melatonin (Melatonin 3 Mg Tab) 3 mg PO BEDTIME PRN PRN Reason: Sleep Last Admin: 01/23/21 22:36 Dose: 3 mg Documented by: Metoprolol Tartrate (Metoprolol Tartrate 5 Mg/5 Ml Sdv) 5 mg IV Q4H PRN PRN Reason: Tachycardia Oxycodone HCl (Oxycodone 5 Mg Tab) 5 mg PO Q4H PRN PRN Reason: Pain (moderate 4-6) Sodium Chloride (Sodium Chloride 0.9% 10 Ml Syringe) 10 ml FLUSH ASDIRECTED PRN PRN Reason: Keep Vein Open Last Admin: 01/22/21 06:55 Dose: 10 ml Documented by: Vancomycin HCl (Pharmacy To Dose - Vancomycin) 0 dose .XX ASDIRECTED PRN PRN Reason: RX TO DOSE VANCOMYCIN Discontinued Medications Diltiazem HCl (Diltiazem 120 Mg Cap.Cd) 120 mg PO ONETIME ONE Stop: 01/22/21 06:37 Last Admin: 01/22/21 06:55 Dose: 120 mg Documented by: Furosemide (Furosemide 40 Mg Tab) 40 mg PO ONETIME ONE Stop: 01/22/21 06:50 Last Admin: 01/22/21 06:56 Dose: 40 mg Documented by: Furosemide (Furosemide 40 Mg/4 Ml Vial) 40 mg IVPUSH NOW ONE Stop: 01/22/21 08:26 Last Admin: 01/22/21 08:35 Dose: 40 mg Documented by: Diltiazem HCl 100 mg/ Sodium (Chloride) 100 mls @ 5 mls/hr IV TITRATE [facility]; Protocol Last Admin: 01/22/21 08:35 Dose: 5 mg/hr, 5 mls/hr Documented by: Ceftriaxone Sodium 2 gm/ (Sodium Chloride) 100 mls @ 200 mls/hr IV ONETIME ONE Stop: 01/22/21 09:04 Last Admin: 01/22/21 08:43 Dose: 200 mls/hr Documented by: Azithromycin 500 mg/ Sodium (Chloride) 250 mls @ 250 mls/hr IV ONETIME ONE Stop: 01/22/21 10:04 Last Admin: 01/22/21 09:28 Dose: 250 mls/hr Documented by: Furosemide 100 mg/ Sodium (Chloride) 100 mls @ 5 mls/hr IV CONTINUOUS JEMIMA; Protocol Azithromycin 500 mg/ Sodium (Chloride) 250 mls @ 250 mls/hr IV Q24H [facility] Last Admin: 01/22/21 13:55 Dose: Not Given Documented by: Ceftriaxone Sodium 2 gm/ (Sodium Chloride) 100 mls @ 200 mls/hr IV ONETIME ONE Stop: 01/22/21 12:46 Last Admin: 01/22/21 13:03 Dose: 200 mls/hr Documented by: Furosemide 100 mg/ Sodium (Chloride) 100 mls @ 5 mls/hr IV CONTINUOUS JEMIMA; Protocol Last Admin: 01/22/21 13:15 Dose: 5 ml/hr, 5 mls/hr Documented by: Azithromycin 500 mg/ Sodium (Chloride) 250 mls @ 250 mls/hr IV Q24H [facility] Ceftriaxone Sodium 1 gm/ (Sodium Chloride) 100 mls @ 200 mls/hr IV Q24H [facility] Magnesium Sulfate/Dextrose 1 (gm/ Premix) 100 mls @ 100 mls/hr IV ONETIME ONE Stop: 01/22/21 18:14 Last Admin: 01/22/21 17:25 Dose: 100 mls/hr Documented by: Piperacillin Sod/Tazobactam (Sod 4.5 gm/ Sodium Chloride) 100 mls @ 200 mls/hr IV ONETIME ONE Stop: 01/22/21 18:29 Last Admin: 01/22/21 17:25 Dose: 200 mls/hr Documented by: Lactated Ringer's (Ringers, Lactated) 250 mls @ 125 mls/hr IV ASDIRECTED [facility] Last Admin: 01/22/21 17:30 Dose: 125 mls/hr Documented by: Vancomycin HCl 1 gm/Vancomycin HCl 500 mg/ Sodium Chloride 500 mls @ 250 mls/hr IV ONETIME ONE Stop: 01/22/21 20:59 Last Admin: 01/22/21 18:33 Dose: 250 mls/hr Documented by: Lactated Ringer's (Ringers, Lactated) 500 mls @ 250 mls/hr IV ONETIME ONE Stop: 01/23/21 00:46 Last Admin: 01/22/21 23:00 Dose: 250 mls/hr Documented by: Lactated Ringer's (Ringers, Lactated) 1,000 mls @ 100 mls/hr IV ASDIRECTED [facility] Last Admin: 01/23/21 01:17 Dose: 100 mls/hr Documented by: Lactated Ringer's (Ringers, Lactated) 1,000 mls @ 75 mls/hr IV ASDIRECTED [facility] Last Admin: 01/23/21 08:13 Dose: 75 mls/hr Documented by: Meclizine HCl (Meclizine 12.5 Mg Tab) 12.5 mg PO ONETIME ONE Stop: 01/22/21 06:44 Last Admin: 01/22/21 06:55 Dose: 12.5 mg Documented by: Metoprolol Succinate (Metoprolol Succinate 50 Mg Tab.Er) 75 mg PO ONETIME ONE Stop: 01/22/21 06:37 Last Admin: 01/22/21 06:54 Dose: 75 mg Documented by: Metoprolol Succinate (Metoprolol Succinate 25 Mg Tab.Er) 12.5 mg PO ONETIME ONE Stop: 01/22/21 19:08 Last Admin: 01/22/21 19:38 Dose: 12.5 mg Documented by: Metoprolol Succinate (Metoprolol Succinate 25 Mg Tab.Er) 25 mg PO ONETIME ONE Stop: 01/22/21 22:08 Last Admin: 01/22/21 22:21 Dose: 25 mg Documented by: Metoprolol Succinate (Metoprolol Succinate 25 Mg Tab.Er) 12.5 mg PO ONETIME ONE Stop: 01/23/21 22:25 Last Admin: 01/23/21 22:35 Dose: 12.5 mg Documented by: Metoprolol Tartrate (Metoprolol Tartrate 5 Mg/5 Ml Sdv) 5 mg IV Q6H PRN PRN Reason: Tachycardia Last Admin: 01/22/21 17:06 Dose: 5 mg Documented by: Metoprolol Tartrate (Metoprolol Tartrate 25 Mg Tab) 12.5 mg PO Q12H [facility] Last Admin: 01/23/21 08:14 Dose: 12.5 mg Documented by: Metoprolol Tartrate (Metoprolol Tartrate 25 Mg Tab) 25 mg PO ONETIME ONE Stop: 01/23/21 16:03 Last Admin: 01/23/21 16:20 Dose: 25 mg Documented by: Metoprolol Tartrate (Metoprolol Tartrate 25 Mg Tab) 12.5 mg PO ONETIME ONE Stop: 01/23/21 18:23 Last Admin: 01/23/21 18:55 Dose: 12.5 mg Documented by: Potassium Chloride (Potassium Chloride 20 Meq Tab.Er) 40 meq PO ONETIME ONE Stop: 01/22/21 12:21 Last Admin: 01/22/21 13:17 Dose: 40 meq Documented by: Potassium Chloride (Potassium Chloride 20 Meq Tab.Er) 40 meq PO ONETIME ONE Stop: 01/22/21 16:01 Last Admin: 01/22/21 17:04 Dose: 40 meq Documented by: - Exam Quality Assessment: DVT Prophylaxis General: Alert, Oriented, Cooperative, No Acute Distress HEENT: Pupils Equal, Pupils Reactive, Mucous Membr. Moist/[place] Neck: Supple, Trachea Midline Lungs: Normal Respiratory Effort, Decreased Breath Sounds, Crackles (very mild bilateral ) Cardiovascular: Irregular Rhythm, Tachycardia GI/Abdominal Exam: Normal Bowel Sounds, Soft, Non-Tender, No Distention (Male) Exam: Deferred Back Exam: Normal Inspection, Full Range of Motion Extremities: Normal Inspection, Normal Range of Motion, Non-Tender, Normal Capillary Refill, Pedal Edema (Trace ) Skin: Warm, Dry, Intact Neurological: No New Focal Deficit Psy/Mental Status: Alert, Normal Affect, Normal Mood - Patient Data Lab Results Last 24 hrs: Laboratory Results - last 24 hr 01/23/21 01/23/21 01/23/21 Range/Units 07:37 11:01 11:24 WBC (4.23-9.07) K/mm3 RBC (4.63-6.08) M/mm3 Hgb (13.7-17.5) gm/dl Hct (40.1-51.0) % MCV (79.0-92.2) fl MCH (25.7-32.2) pg MCHC (32.2-35.5) g/dl RDW Std Deviation (35.1-43.9) fL Plt Count (163-337) K/mm3 MPV (9.4-12.3) fl Neut % (Auto) (34.0-67.9) % Lymph % (Auto) (21.8-53.1) % [place] % (Auto) (5.3-12.2) % Eos % (Auto) (0.8-7.0) Baso % (Auto) (0.1-1.2) % Neut # (Auto) (1.78-5.38) K/mm3 Lymph # (Auto) (1.32-3.57) K/mm3 [place] # (Auto) (0.30-0.82) K/mm3 Eos # (Auto) (0.04-0.54) K/mm3 Baso # (Auto) (0.01-0.08) K/mm3 Manual Slide Review POC Glucose 149 H (70-99) mg/dL Lactic Acid 2.0 (0.4-2.0) mmol/L Procalcitonin 0.81 H ng/mL 01/23/21 01/23/21 01/23/21 Range/Units 17:30 21:04 21:15 WBC (4.23-9.07) K/mm3 RBC (4.63-6.08) M/mm3 Hgb (13.7-17.5) gm/dl Hct (40.1-51.0) % MCV (79.0-92.2) fl MCH (25.7-32.2) pg MCHC (32.2-35.5) g/dl RDW Std Deviation (35.1-43.9) fL Plt Count (163-337) K/mm3 MPV (9.4-12.3) fl Neut % (Auto) (34.0-67.9) % Lymph % (Auto) (21.8-53.1) % [place] % (Auto) (5.3-12.2) % Eos % (Auto) (0.8-7.0) Baso % (Auto) (0.1-1.2) % Neut # (Auto) (1.78-5.38) K/mm3 Lymph # (Auto) (1.32-3.57) K/mm3 [place] # (Auto) (0.30-0.82) K/mm3 Eos # (Auto) (0.04-0.54) K/mm3 Baso # (Auto) (0.01-0.08) K/mm3 Manual Slide Review POC Glucose 127 H 133 H (70-99) mg/dL Lactic Acid 1.6 (0.4-2.0) mmol/L Procalcitonin ng/mL 01/24/21 01/24/21 Range/Units 06:13 06:14 WBC 11.84 H (4.23-9.07) K/mm3 RBC 4.30 L (4.63-6.08) M/mm3 Hgb 12.8 L (13.7-17.5) gm/dl Hct 38.8 L (40.1-51.0) % MCV 90.2 (79.0-92.2) fl MCH 29.8 (25.7-32.2) pg MCHC 33.0 (32.2-35.5) g/dl RDW Std Deviation 47.5 H (35.1-43.9) fL Plt Count 252 (163-337) K/mm3 MPV 11.9 (9.4-12.3) fl Neut % (Auto) 79.4 H (34.0-67.9) % Lymph % (Auto) 9.3 L (21.8-53.1) % [place] % (Auto) 9.7 (5.3-12.2) % Eos % (Auto) 0.8 (0.8-7.0) Baso % (Auto) 0.3 (0.1-1.2) % Neut # (Auto) 9.40 H (1.78-5.38) K/mm3 Lymph # (Auto) 1.10 L (1.32-3.57) K/mm3 [place] # (Auto) 1.15 H (0.30-0.82) K/mm3 Eos # (Auto) 0.10 (0.04-0.54) K/mm3 Baso # (Auto) 0.03 (0.01-0.08) K/mm3 Manual Slide Review Normal smear POC Glucose 113 H (70-99) mg/dL Lactic Acid (0.4-2.0) mmol/L Procalcitonin ng/mL Result Diagrams: 01/24/21 06:14 01/24/21 06:14 [place] Results Last 24 hrs: Microbiology 01/22/21 09:26 Blood Culture - Preliminary Blood - Venous - Lab Draw 01/22/21 09:10 Blood Culture - Preliminary Blood - Venous - Lab Draw 01/22/21 15:30 Gram Stain - Final Sputum - Expectorated 01/22/21 15:30 Gram Stain - Final Sputum - Expectorated Sepsis Event Note - Evaluation Sepsis Screening Result: Possible Sepsis Risk - Focused Exam Vital Signs: Vital Signs Temp Pulse Resp BP BP Pulse Ox 01/24/21 04:00 96.8 F L 16 99/68 95 01/24/21 00:00 97.1 F 18 109/75 96 01/23/21 22:35 117 H 101/76 01/23/21 20:00 97.4 F 16 101/76 97 - Problem List & Annotations (1) Hypokalemia SNOMED Code(s): 79916370 Code(s): E87.6 - HYPOKALEMIA Status: Acute Priority: High Current Visit: Yes (2) Pneumonia SNOMED Code(s): 041713247 Code(s): J18.9 - PNEUMONIA, UNSPECIFIED ORGANISM Status: Acute Priority: High Current Visit: Yes Qualifiers: Pneumonia type: due to unspecified organism Laterality: left Lung location: lower lobe of lung Qualified Code(s): J18.9 - Pneumonia, unspecified organism (3) Atrial fibrillation with RVR SNOMED Code(s): 516388700052351 Code(s): I48.91 - UNSPECIFIED ATRIAL FIBRILLATION Status: Chronic Priority: High Current Visit: Yes (4) CHF (congestive heart failure) SNOMED Code(s): 57444155 Code(s): I50.9 - HEART FAILURE, UNSPECIFIED Status: Chronic Priority: High Current Visit: Yes Qualifiers: Heart failure type: unspecified Heart failure chronicity: acute on chronic Qualified Code(s): I50.9 - Heart failure, unspecified (5) Chronic anticoagulation SNOMED Code(s): 896303353 Code(s): Z79.01 - APPEALS AND GENERALIST CLERK (CURRENT) USE OF ANTICOAGULANTS Status: Chronic Priority: Medium Current Visit: Yes (6) Type 2 diabetes mellitus SNOMED Code(s): 35371260 Code(s): E11.9 - TYPE 2 DIABETES MELLITUS WITHOUT COMPLICATIONS Status: Chronic Priority: High Current Visit: Yes Qualifiers: Diabetes mellitus long filler cigar roller machine insulin use: without jail use Diabetes mellitus complication status: without complication Qualified Code(s): E11.9 - Type 2 diabetes mellitus without complications (7) History of pyelonephritis SNOMED Code(s): 221934598 Code(s): Z87.448 - PERSONAL HISTORY OF OTHER DISEASES OF URINARY SYSTEM St atus: Acute Priority: Medium Current Visit: No (8) Renal insufficiency SNOMED Code(s): 617569418, 058455695 Code(s): N28.9 - DISORDER OF KIDNEY AND URETER, UNSPECIFIED Status: Chronic Priority: Medium Current Visit: No (9) Sepsis SNOMED Code(s): 02464962 Code(s): A41.9 - SEPSIS, UNSPECIFIED ORGANISM Status: Acute Priority: High Current Visit: Yes Qualifiers: Sepsis type: sepsis due to unspecified organism Sepsis acute organ dysfunction status: with acute organ dysfunction Severe sepsis acute organ dysfunction type: acute renal failure Acute renal failure type: unspecified Severe sepsis shock status: without septic shock Qualified Code(s): A41.9 - Sepsis, unspecified organism; R65.20 - Severe sepsis without septic shock; N17.9 - Acute kidney failure, unspecified (10) Elevated lactic acid level SNOMED Code(s): 3989902 Code(s): R79.89 - OTHER SPECIFIED ABNORMAL FINDINGS OF BLOOD CHEMISTRY Status: Acute Priority: High Current Visit: Yes (11) Hyponatremia SNOMED Code(s): 60216793 Code(s): E87.1 - HYPO-OSMOLALITY AND HYPONATREMIA Status: Acute Priority: Medium Current Visit: Yes (12) Elevated brain natriuretic peptide (BNP) level SNOMED Code(s): 565189907, 017007846 Code(s): R79.89 - OTHER SPECIFIED ABNORMAL FINDINGS OF BLOOD CHEMISTRY Status: Acute Priority: High Current Visit: Yes (13) Leukocytosis SNOMED Code(s): 908668945, 350004513 Code(s): D72.829 - ELEVATED WHITE BLOOD CELL COUNT, UNSPECIFIED Status: Acute Priority: High Current Visit: Yes Qualifiers: Leukocytosis type: unspecified Qualified Code(s): D72.829 - Elevated white blood cell count, unspecified (14) Acute renal injury SNOMED Code(s): 54307530, 70543511 Code(s): N17.9 - ACUTE KIDNEY FAILURE, UNSPECIFIED Status: Acute Priority: High Current Visit: Yes - Problem List Review Problem List Initiated/Reviewed/Updated: Yes - My Orders Last 24 Hours: My Active Orders 01/23/21 11:07 Acapella [RT Chest Physiotherapy] [RC] ASDIRECTED RT Incentive Spirometry [RC] ASDIRECTED 01/23/21 11:08 Consult to Respiratory Therapy [Respiratory Care Assess and Treatment] [CONS] Routine 01/23/21 Dinner Sodium Restricted Diet [DIET] - Assessment Assessment:: Assessment day of admit: 70-year-old male who presents with fatigue, cough productive of yellow-colored sputum x1 week, fever, chills and decreased appetite. Was found to have pneumonia on the left lower lobe and subsequently an atrial fib with RVR. History of heart failure with a proBNP of 20,453. Recently treated for pyelonephritis with his last dose of antibiotic taken yesterday. He was treated in the emergency department with IV and p.o. Lasix. Chest x-ray subsequently revealed pneumonia of the left lower lobe. Blood cultures were collected and he was started on Rocephin and Zithromax IV. Patient subsequently admitted to ICU. He will be placed on a Lasix drip at 5 mL's per hour. Hopeful that A. fib and RVR will resolve with treatment of pneumonia and CHF. 01/23/2021: 70-year-old male admitted to the floor for A. fib with RVR and pneumonia. Has been receiving azithromycin and Rocephin however this was broadened to Zosyn and vancomycin after the patient was noted to have worsening tachycardia, fever, and elevated lactic acid. He had been receiving Lasix and was noted to have acute renal injury. He was placed on gentle hydration. Lasix was discontinued. We did restart his scheduled metoprolol however at a much lesser amount due to concerns over sepsis. As needed IV push metoprolol was also ordered. Labs are obtained with WBC of 15.43. Hemoglobin 13.1. Platelet 247,000. Neutrophils elevated at 83.6%. Sodium is 134. Potassium 4.0. Chloride 99. Carbon dioxide 20. Anion gap 19.0. BUN 44. Creatinine 1.6. GFR 43. Glucose 152. Lactic acid 1.2. Repeat lactic acid 2.0. Magnesium 2.4. Bilirubin 0.7. AST 129, ALT 149, alkaline phosphatase 68. CRP 28.8. Procalcitonin 0.81. We will continue current treatment plan and adjust rate control medications as needed. Unknown length of stay. Reviewed echocardiogram obtained on 12/24/2020: 1. Left ventricular ejection fraction, by visual estimation, is 25%. 2. Severely decreased left ventricular systolic function. 3. Moderately reduced right ventricular systolic function 4. Right ventricular size is mildly enlarged. 5. There is mild aortic valve sclerosis without stenosis. 6. Moderate to severe mitral valve regurgitation. 7. Moderate to severe tricuspid valve regurgitation. 8. The right ventricular systolic pressure is mild to moderately elevated at 46.4 mmHg. 9. The study was performed with the patient atrial fibrillation/flutter. 10. Large left pleural effusion. Due to echocardiogram being less than 1 month old we will not reorder echocardiogram. 01/24/2021: 70-year-old male admitted for pneumonia and A. fib with RVR. Patient noted to be septic but since has responded well. WBC continues to trend downward. His home p.o. rate control medications were resumed today and we will monitor this. He reports dyspnea with significant exertion but otherwise states his breathing is quite good. Trace pulmonary edema. Discussed with patient and family at bedside plan of care. Report given and discussion with patient's daughter at patient's request. Labs today show WBC of 11.84. Hemoglobin 12.8. Platelet 252,000. Neutrophils are 79.4%. Sodium 139. Potassium 3.4. This is supplemented with p.o. potassium. Anion gap 16.4. BUN 41. Creatinine 1.3. GFR 55. Glucose 116. Lactic acid last night was 1.6. Calcium 8.7. Magnesium 2.3. Total bilirubin 0.6. AST is 73, ALT 141. Alkaline phosphatase is 66. CRP is down to 2.0. Protein 7.0. Albumin 2.5. We will continue current treatment plan and resume some home medications as as mentioned prior. Hopeful for discharge in 1 to 2 days pending continued stability and improvement. Per family patient does have cardiology appointment scheduled already for this coming Thursday. - Plan Plan:: Pneumonia Leukocytosis Elevated lactic acid level Sepsis -Discontinued Rocephin and azithromycin -Continue on vancomycin and Zosyn due to lactic acidosis, sepsis -Blood cultures negative thus far -IS/Acapella -RT consultation -Follow daily labs including CBC and CRP -Sputum culture obtained Atrial fibrillation with RVR CHF (congestive heart failure) Chronic anticoagulation Elevated brain natriuretic peptide (BNP) level -Continue Eliquis -Heart rate is currently in the 100-120's-tachycardia is likely due to pneumonia and CHF -Discontinued lasix drip due to LASHAWN and lactic acidosis -Strict I&Os -Daily weight -Low sodium diet -1.5L fluid restriction -RUFINO hose for bilateral lower extremity edema. -Resume home rate control meds -PRN IVP metoprolol for sustained HR >120 -Caution with IV fluids -Telemetry Type 2 diabetes mellitus -Hold metformin -Accuchecks QID AC and HS -Low dose sliding scale insulin -Visitor Service Assistant to consult Renal insufficiency Hyponatremia Acute renal injury -Monitor renal function daily -Avoid nephrotoxic drugs -Michael hydration -Caution due to CHF with very low EF Hypokalemia -Monitor -Supplement potassium as needed History of pyelonephritis -No acute concerns Primary care provider: Dr. Robles Community Placement Worker: Reji Meeks VTE prophylaxis: Eliquis GI: Pepcid Code Status: DNR/DNI Disposition: Case management and social and political studies professor for discharge planning. Patient will likely be here for 3 to 4 days due to diuresis and management of pneumonia, atrial fib, and CHF.
[2021-01-24] MEDS: Apixaban 5 MG Tab PO SCH ×2 (08:39→20:15)
[2021-01-24] MEDS: Diltiazem 180 MG Cap.CD PO SCH (08:39)
[2021-01-24] MEDS: Famotidine 20 MG Tab PO SCH (08:39)
[2021-01-24] MEDS ORDERED: Metoprolol Succinate 25 MG Tab.ER PO SCH (09:00)
[2021-01-24] MEDS ORDERED: Potassium Chloride 20 MEQ Tab.ER PO ONE (10:27)
[2021-01-24 11:05] LABS: HEMOGLOBIN A1C 6.6 %
[2021-01-24] MEDS ORDERED: Metoprolol Succinate 50 MG Tab.ER PO ONE (11:37)
[2021-01-24] MEDS: Melatonin 3 MG Tab PO PRN (20:16)
[2021-01-25] MEDS: Piperacillin/Tazobactam 4.5 GM in Sodium Chloride 0.9% 100 ML IV SCH ×3 (01:55→17:51)
[2021-01-25] MEDS ORDERED: OLANZapine 5 MG Tab PO ONE (02:38)
[2021-01-25] MEDS: Insulin Lispro 100 UNIT/ML 10 ML Vial SUBCUT SCH ×4 (06:45→21:18)
--- NOTE | 2021-01-25 07:25 | PCM.PN ---
- General Info Date of Service: 01/25/21 Admission Dx/Problem (Free Text): Admission Diagnosis/Problem Admission Diagnosis/Problem Pneumonia Functional Status: Reports: Pain Controlled, Tolerating Diet, Ambulating, Urinating, New Symptoms (Significant confusion/delirium) - Review of Systems General: Reports: No Symptoms. Denies: Fever, Weakness, Fatigue, Malaise, Chills HEENT: Reports: No Symptoms. Denies: Headaches, Sore Throat Pulmonary: Reports: No Symptoms. Denies: Shortness of Breath, Cough, Sputum, Wheezing Cardiovascular: Reports: Edema. Denies: Chest Pain, Palpitations, Dyspnea on Exertion Gastrointestinal: Reports: No Symptoms. Denies: Abdominal Pain, Constipation, Diarrhea, Nausea, Vomiting Genitourinary: Reports: No Symptoms. Denies: Pain Musculoskeletal: Reports: No Symptoms Skin: Reports: No Symptoms. Denies: Cyanosis Neurological: Reports: Confusion. Denies: Difficulty Walking, Weakness, Gait Di sturbance Psychiatric: Reports: No Symptoms - Patient Data Vitals - Most Recent: Last Vital Signs Temp 97.2 F 01/25/21 04:00 Pulse 104 H 01/24/21 16:00 Resp 16 01/25/21 04:00 BP 121/72 01/25/21 04:00 Pulse Ox 97 01/25/21 04:00 Weight - Most Recent: 213 lb 3.2 oz I&O - Last 24 Hours: Intake & Output 01/24/21 01/25/21 01/25/21 22:59 06:59 14:59 Intake Total 880 750 Output Total 400 925 Balance 480 -175 Lab Results Last 24 Hours: Laboratory Results - last 24 hr 01/24/21 01/24/21 01/24/21 Range/Units 06:14 06:14 11:41 WBC (4.23-9.07) K/mm3 RBC (4.63-6.08) M/mm3 Hgb (13.7-17.5) gm/dl Hct (40.1-51.0) % MCV (79.0-92.2) fl MCH (25.7-32.2) pg MCHC (32.2-35.5) g/dl RDW Std Deviation (35.1-43.9) fL Plt Count (163-337) K/mm3 MPV (9.4-12.3) fl Neut % (Auto) (34.0-67.9) % Lymph % (Auto) (21.8-53.1) % [place] % (Auto) (5.3-12.2) % Eos % (Auto) (0.8-7.0) Baso % (Auto) (0.1-1.2) % Neut # (Auto) (1.78-5.38) K/mm3 Lymph # (Auto) (1.32-3.57) K/mm3 [place] # (Auto) (0.30-0.82) K/mm3 Eos # (Auto) (0.04-0.54) K/mm3 Baso # (Auto) (0.01-0.08) K/mm3 Sodium (136-145) mEq/L Potassium (3.5-5.1) mEq/L Chloride (98-107) mEq/L Carbon Dioxide (21-32) mEq/L Anion Gap (5-15) BUN (7-18) mg/dL Creatinine (0.7-1.3) mg/dL Est Cr Clr Drug Dosing mL/min Estimated GFR (MDRD) (>60) mL/min BUN/Creatinine Ratio (14-18) Glucose (70-99) mg/dL POC Glucose 126 H (70-99) mg/dL Hemoglobin A1c 6.6 H ( - 5.6) % Calcium (8.5-10.1) mg/dL Magnesium (1.8-2.4) mg/dL Total Bilirubin (0.2-1.0) mg/dL AST (15-37) U/L ALT (16-63) U/L Alkaline Phosphatase (46-116) U/L C-Reactive Protein 20.0 H* (<1.0) mg/dL Total Protein (6.4-8.2) g/dl Albumin (3.4-5.0) g/dl Globulin gm/dL Albumin/Globulin Ratio (1-2) 01/24/21 01/25/21 01/25/21 Range/Units 17:08 05:18 05:19 WBC 11.78 H (4.23-9.07) K/mm3 RBC 4.44 L (4.63-6.08) M/mm3 Hgb 13.1 L (13.7-17.5) gm/dl Hct 40.5 (40.1-51.0) % MCV 91.2 (79.0-92.2) fl MCH 29.5 (25.7-32.2) pg MCHC 32.3 (32.2-35.5) g/dl RDW Std Deviation 48.5 H (35.1-43.9) fL Plt Count 289 (163-337) K/mm3 MPV 11.5 (9.4-12.3) fl Neut % (Auto) 77.5 H (34.0-67.9) % Lymph % (Auto) 11.4 L (21.8-53.1) % [place] % (Auto) 8.7 (5.3-12.2) % Eos % (Auto) 1.4 (0.8-7.0) Baso % (Auto) 0.3 (0.1-1.2) % Neut # (Auto) 9.14 H (1.78-5.38) K/mm3 Lymph # (Auto) 1.34 (1.32-3.57) K/mm3 [place] # (Auto) 1.02 H (0.30-0.82) K/mm3 Eos # (Auto) 0.16 (0.04-0.54) K/mm3 Baso # (Auto) 0.04 (0.01-0.08) K/mm3 Sodium (136-145) mEq/L Potassium (3.5-5.1) mEq/L Chloride (98-107) mEq/L Carbon Dioxide (21-32) mEq/L Anion Gap (5-15) BUN (7-18) mg/dL Creatinine (0.7-1.3) mg/dL Est Cr Clr Drug Dosing mL/min Estimated GFR (MDRD) (>60) mL/min BUN/Creatinine Ratio (14-18) Glucose (70-99) mg/dL POC Glucose 134 H 114 H (70-99) mg/dL Hemoglobin A1c ( - 5.6) % Calcium (8.5-10.1) mg/dL Magnesium (1.8-2.4) mg/dL Total Bilirubin (0.2-1.0) mg/dL AST (15-37) U/L ALT (16-63) U/L Alkaline Phosphatase (46-116) U/L C-Reactive Protein (<1.0) mg/dL Total Protein (6.4-8.2) g/dl Albumin (3.4-5.0) g/dl Globulin gm/dL Albumin/Globulin Ratio (1-2) 01/25/ Range/Units 05:19 WBC (4.23-9.07) K/mm3 RBC (4.63-6.08) M/mm3 Hgb (13.7-17.5) gm/dl Hct (40.1-51.0) % MCV (79.0-92.2) fl MCH (25.7-32.2) pg MCHC (32.2-35.5) g/dl RDW Std Deviation (35.1-43.9) fL Plt Count (163-337) K/mm3 MPV (9.4-12.3) fl Neut % (Auto) (34.0-67.9) % Lymph % (Auto) (21.8-53.1) % [place] % (Auto) (5.3-12.2) % Eos % (Auto) (0.8-7.0) Baso % (Auto) (0.1-1.2) % Neut # (Auto) (1.78-5.38) K/mm3 Lymph # (Auto) (1.32-3.57) K/mm3 [place] # (Auto) (0.30-0.82) K/mm3 Eos # (Auto) (0.04-0.54) K/mm3 Baso # (Auto) (0.01-0.08) K/mm3 Sodium 141 (136-145) mEq/L Potassium 3.6 (3.5-5.1) mEq/L Chloride 106 (98-107) mEq/L Carbon Dioxide 23 (21-32) mEq/L Anion Gap 15.6 H (5-15) BUN 39 H (7-18) mg/dL Creatinine 1.2 (0.7-1.3) mg/dL Est Cr Clr Drug Dosing 56.21 mL/min Estimated GFR (MDRD) > 60 (>60) mL/min BUN/Creatinine Ratio 32.5 H (14-18) Glucose 124 H (70-99) mg/dL POC Glucose (70-99) mg/dL Hemoglobin A1c ( - 5.6) % Calcium 8.9 (8.5-10.1) mg/dL Magnesium 2.3 (1.8-2.4) mg/dL Total Bilirubin 0.6 (0.2-1.0) mg/dL AST 85 H (15-37) U/L ALT 161 H (16-63) U/L Alkaline Phosphatase 75 (46-116) U/L C-Reactive Protein 15.1 H* (<1.0) mg/dL Total Protein 7.4 (6.4-8.2) g/dl Albumin 2.7 L (3.4-5.0) g/dl Globulin 4.7 gm/dL Albumin/Globulin Ratio 0.6 L (1-2) Med Orders - Current: Current Medications Acetaminophen (Acetaminophen 325 Mg Tab) 650 mg PO Q4H PRN PRN Reason: Pain (Mild 1-3)/fever Apixaban (Apixaban 5 Mg Tab) 5 mg PO BID [facility] Last Admin: 01/24/21 20:15 Dose: 5 mg Documented by: Diltiazem HCl (Diltiazem 180 Mg Cap.Cd) 360 mg PO DAILY [facility] Last Admin: 01/24/21 08:39 Dose: 360 mg Documented by: Docusate Sodium (Docusate Sodium 100 Mg Cap) 100 mg PO DAILY PRN PRN Reason: Constipation Last Admin: 01/22/21 18:00 Dose: 100 mg Documented by: Famotidine (Famotidine 20 Mg Tab) 20 mg PO DAILY [facility] Last Admin: 01/24/21 08:39 Dose: 20 mg Documented by: Furosemide (Furosemide 20 Mg Tab) 40 mg PO BID [facility] Hydromorphone HCl (Hydromorphone 0.5 Mg/0.5 Ml Syringe) 0.5 mg IVPUSH Q2H PRN PRN Reason: Pain (severe 7-10) Piperacillin Sod/Tazobactam (Sod 4.5 gm/ Sodium Chloride) 100 mls @ 25 mls/hr IV Q8H [facility] Last Admin: 01/25/21 01:55 Dose: 25 mls/hr Documented by: Insulin Human Lispro (Insulin Lispro 100 Unit/Ml 10 Ml Vial) 0 unit SUBCUT QIDACANDBED [facility]; Protocol Last Admin: 01/25/21 06:45 Dose: Not Given Documented by: Melatonin (Melatonin 3 Mg Tab) 3 mg PO BEDTIME PRN PRN Reason: Sleep Last Admin: 01/24/21 20:16 Dose: 3 mg Documented by: Metoprolol Succinate (Metoprolol Succinate 50 Mg Tab.Er) 75 mg PO DAILY [facility] Metoprolol Tartrate (Metoprolol Tartrate 5 Mg/5 Ml Sdv) 5 mg IV Q4H PRN PRN Reason: Tachycardia Oxycodone HCl (Oxycodone 5 Mg Tab) 5 mg PO Q4H PRN PRN Reason: Pain (moderate 4-6) Sodium Chloride (Sodium Chloride 0.9% 10 Ml Syringe) 10 ml FLUSH ASDIRECTED PRN PRN Reason: Keep Vein Open Last Admin: 01/22/21 06:55 Dose: 10 ml Documented by: Discontinued Medications Diltiazem HCl (Diltiazem 120 Mg Cap.Cd) 120 mg PO ONETIME ONE Stop: 01/22/21 06:37 Last Admin: 01/22/21 06:55 Dose: 120 mg Documented by: Furosemide (Furosemide 40 Mg Tab) 40 mg PO ONETIME ONE Stop: 01/22/21 06:50 Last Admin: 01/22/21 06:56 Dose: 40 mg Documented by: Furosemide (Furosemide 40 Mg/4 Ml Vial) 40 mg IVPUSH NOW ONE Stop: 01/22/21 08:26 Last Admin: 01/22/21 08:35 Dose: 40 mg Documented by: Diltiazem HCl 100 mg/ Sodium (Chloride) 100 mls @ 5 mls/hr IV TITRATE [facility]; Protocol Last Admin: 01/22/21 08:35 Dose: 5 mg/hr, 5 mls/hr Documented by: Ceftriaxone Sodium 2 gm/ (Sodium Chloride) 100 mls @ 200 mls/hr IV ONETIME ONE Stop: 01/22/21 09:04 Last Admin: 01/22/21 08:43 Dose: 200 mls/hr Documented by: Azithromycin 500 mg/ Sodium (Chloride) 250 mls @ 250 mls/hr IV ONETIME ONE Stop: 01/22/21 10:04 Last Admin: 01/22/21 09:28 Dose: 250 mls/hr Documented by: Furosemide 100 mg/ Sodium (Chloride) 100 mls @ 5 mls/hr IV CONTINUOUS [facility]; Protocol Azithromycin 500 mg/ Sodium (Chloride) 250 mls @ 250 mls/hr IV Q24H [facility] Last Admin: 01/22/21 13:55 Dose: Not Given Documented by: Ceftriaxone Sodium 2 gm/ (Sodium Chloride) 100 mls @ 200 mls/hr IV ONETIME ONE Stop: 01/22/21 12:46 Last Admin: 01/22/21 13:03 Dose: 200 mls/hr Documented by: Furosemide 100 mg/ Sodium (Chloride) 100 mls @ 5 mls/hr IV CONTINUOUS [facility]; Protocol Last Admin: 01/22/21 13:15 Dose: 5 ml/hr, 5 mls/hr Documented by: Azithromycin 500 mg/ Sodium (Chloride) 250 mls @ 250 mls/hr IV Q24H [facility] Ceftriaxone Sodium 1 gm/ (Sodium Chloride) 100 mls @ 200 mls/hr IV Q24H [facility] Magnesium Sulfate/Dextrose 1 (gm/ Premix) 100 mls @ 100 mls/hr IV ONETIME ONE Stop: 01/22/21 18:14 Last Admin: 01/22/21 17:25 Dose: 100 mls/hr Documented by: Piperacillin Sod/Tazobactam (Sod 4.5 gm/ Sodium Chloride) 100 mls @ 200 mls/hr IV ONETIME ONE Stop: 01/22/21 18:29 Last Admin: 01/22/21 17:25 Dose: 200 mls/hr Documented by: Lactated Ringer's (Ringers, Lactated) 250 mls @ 125 mls/hr IV ASDIRECTED [facility] Last Admin: 01/22/21 17:30 Dose: 125 mls/hr Documented by: Vancomycin HCl 1 gm/Vancomycin HCl 500 mg/ Sodium Chloride 500 mls @ 250 mls/hr IV ONETIME ONE Stop: 01/22/21 20:59 Last Admin: 01/22/21 18:33 Dose: 250 mls/hr Documented by: Vancomycin HCl 1 gm/Vancomycin HCl 250 mg/ Sodium Chloride 250 mls @ 157 mls/hr IV Q24H [facility] Last Admin: 01/23/21 18:50 Dose: 157 mls/hr Documented by: Lactated Ringer's (Ringers, Lactated) 500 mls @ 250 mls/hr IV ONETIME ONE Stop: 01/23/21 00:46 Last Admin: 01/22/21 23:00 Dose: 250 mls/hr Documented by: Lactated Ringer's (Ringers, Lactated) 1,000 mls @ 100 mls/hr IV ASDIRECTED [facility] Last Admin: 01/23/21 01:17 Dose: 100 mls/hr Documented by: Lactated Ringer's (Ringers, Lactated) 1,000 mls @ 75 mls/hr IV ASDIRECTED [facility] Last Admin: 01/23/21 08:13 Dose: 75 mls/hr Documented by: Meclizine HCl (Meclizine 12.5 Mg Tab) 12.5 mg PO ONETIME ONE Stop: 01/22/21 06:44 Last Admin: 01/22/21 06:55 Dose: 12.5 mg Documented by: Metoprolol Succinate (Metoprolol Succinate 50 Mg Tab.Er) 75 mg PO ONETIME ONE Stop: 01/22/21 06:37 Last Admin: 01/22/21 06:54 Dose: 75 mg Documented by: Metoprolol Succinate (Metoprolol Succinate 25 Mg Tab.Er) 12.5 mg PO ONETIME ONE Stop: 01/22/21 19:08 Last Admin: 01/22/21 19:38 Dose: 12.5 mg Documented by: Metoprolol Succinate (Metoprolol Succinate 25 Mg Tab.Er) 25 mg PO ONETIME ONE Stop: 01/22/21 22:08 Last Admin: 01/22/21 22:21 Dose: 25 mg Documented by: Metoprolol Succinate (Metoprolol Succinate 25 Mg Tab.Er) 12.5 mg PO ONETIME ONE Stop: 01/23/21 22:25 Last Admin: 01/23/21 22:35 Dose: 12.5 mg Documented by: Metoprolol Succinate (Metoprolol Succinate 25 Mg Tab.Er) 25 mg PO DAILY [facility] Last Admin: 01/24/21 08:39 Dose: 25 mg Documented by: Metoprolol Succinate (Metoprolol Succinate 50 Mg Tab.Er) 50 mg PO ONETIME ONE Stop: 01/24/21 11:38 Last Admin: 01/24/21 11:43 Dose: 50 mg Documented by: Metoprolol Tartrate (Metoprolol Tartrate 5 Mg/5 Ml Sdv) 5 mg IV Q6H PRN PRN Reason: Tachycardia Last Admin: 01/22/21 17:06 Dose: 5 mg Documented by: Metoprolol Tartrate (Metoprolol Tartrate 25 Mg Tab) 12.5 mg PO Q12H [facility] Last Admin: 01/23/21 08:14 Dose: 12.5 mg Documented by: Metoprolol Tartrate (Metoprolol Tartrate 25 Mg Tab) 25 mg PO ONETIME ONE Stop: 01/23/21 16:03 Last Admin: 01/23/21 16:20 Dose: 25 mg Documented by: Metoprolol Tartrate (Metoprolol Tartrate 25 Mg Tab) 12.5 mg PO ONETIME ONE Stop: 01/23/21 18:23 Last Admin: 01/23/21 18:55 Dose: 12.5 mg Documented by: Olanzapine (Olanzapine 5 Mg Tab) 5 mg PO ONETIME ONE Stop: 01/25/21 02:39 Last Admin: 01/25/21 02:50 Dose: 5 mg Documented by: Potassium Chloride (Potassium Chloride 20 Meq Tab.Er) 40 meq PO ONETIME ONE Stop: 01/22/21 12:21 Last Admin: 01/22/21 13:17 Dose: 40 meq Documented by: Potassium Chloride (Potassium Chloride 20 Meq Tab.Er) 40 meq PO ONETIME ONE Stop: 01/22/21 16:01 Last Admin: 01/22/21 17:04 Dose: 40 meq Documented by: Potassium Chloride (Potassium Chloride 20 Meq Tab.Er) 40 meq PO ONETIME ONE Stop: 01/24/21 10:28 Last Admin: 01/24/21 10:45 Dose: 40 meq Documented by: Vancomycin HCl (Pharmacy To Dose - Vancomycin) 0 dose .XX ASDIRECTED PRN PRN Reason: RX TO DOSE VANCOMYCIN - Exam Quality Assessment: DVT Prophylaxis. No: Supplemental Oxygen, Urine Catheter General: Alert, Oriented (x3), Cooperative, No Acute Distress HEENT: Pupils Equal, Pupils Reactive, Mucous Membr. Moist/[place] Neck: Supple, Trachea Midline Lungs: Clear to Auscultation, Normal Respiratory Effort, Decreased Breath Sounds. No: Crackles, Rhonchi, Wheezing Cardiovascular: Irregular Rhythm (Atrial fibrillation with rate in the 90s to low 110s.) GI/Abdominal Exam: Normal Bowel Sounds, Soft, Non-Tender, No Distention (Male) Exam: Deferred Back Exam: Normal Inspection, Full Range of Motion Extremities: Normal Inspection, Normal Range of Motion, Non-Tender, Normal Capillary Refill, Pedal Edema (trace) Peripheral Pulses: 2+: Radial (L), Radial (R), Dorsalis Pedis (L), Dorsalis Pedis (R) Skin: Warm, Dry, Intact Neurological: No New Focal Deficit Psy/Mental Status: Alert, Normal Affect, Normal Mood, Hallucinations - Patient Data Lab Results Last 24 hrs: Laboratory Results - last 24 hr 01/24/21 01/24/21 01/24/21 Range/Units 06:14 06:14 11:41 WBC (4.23-9.07) K/mm3 RBC (4.63-6.08) M/mm3 Hgb (13.7-17.5) gm/dl Hct (40.1-51.0) % MCV (79.0-92.2) fl MCH (25.7-32.2) pg MCHC (32.2-35.5) g/dl RDW Std Deviation (35.1-43.9) fL Plt Count (163-337) K/mm3 MPV (9.4-12.3) fl Neut % (Auto) (34.0-67.9) % Lymph % (Auto) (21.8-53.1) % [place] % (Auto) (5.3-12.2) % Eos % (Auto) (0.8-7.0) Baso % (Auto) (0.1-1.2) % Neut # (Auto) (1.78-5.38) K/mm3 Lymph # (Auto) (1.32-3.57) K/mm3 [place] # (Auto) (0.30-0.82) K/mm3 Eos # (Auto) (0.04-0.54) K/mm3 Baso # (Auto) (0.01-0.08) K/mm3 Sodium (136-145) mEq/L Potassium (3.5-5.1) mEq/L Chloride (98-107) mEq/L Carbon Dioxide (21-32) mEq/L Anion Gap (5-15) BUN (7-18) mg/dL Creatinine (0.7-1.3) mg/dL Est Cr Clr Drug Dosing mL/min Estimated GFR (MDRD) (>60) mL/min BUN/Creatinine Ratio (14-18) Glucose (70-99) mg/dL POC Glucose 126 H (70-99) mg/dL Hemoglobin A1c 6.6 H ( - 5.6) % Calcium (8.5-10.1) mg/dL Magnesium (1.8-2.4) mg/dL Total Bilirubin (0.2-1.0) mg/dL AST (15-37) U/L ALT (16-63) U/L Alkaline Phosphatase (46-116) U/L C-Reactive Protein 20.0 H* (<1.0) mg/dL Total Protein (6.4-8.2) g/dl Albumin (3.4-5.0) g/dl Globulin gm/dL Albumin/Globulin Ratio (1-2) 01/24/21 01/25/21 01/25/21 Range/Units 17:08 05:18 05:19 WBC 11.78 H (4.23-9.07) K/mm3 RBC 4.44 L (4.63-6.08) M/mm3 Hgb 13.1 L (13.7-17.5) gm/dl Hct 40.5 (40.1-51.0) % MCV 91.2 (79.0-92.2) fl MCH 29.5 (25.7-32.2) pg MCHC 32.3 (32.2-35.5) g/dl RDW Std Deviation 48.5 H (35.1-43.9) fL Plt Count 289 (163-337) K/mm3 MPV 11.5 (9.4-12.3) fl Neut % (Auto) 77.5 H (34.0-67.9) % Lymph % (Auto) 11.4 L (21.8-53.1) % [place] % (Auto) 8.7 (5.3-12.2) % Eos % (Auto) 1.4 (0.8-7.0) Baso % (Auto) 0.3 (0.1-1.2) % Neut # (Auto) 9.14 H (1.78-5.38) K/mm3 Lymph # (Auto) 1.34 (1.32-3.57) K/mm3 [place] # (Auto) 1.02 H (0.30-0.82) K/mm3 Eos # (Auto) 0.16 (0.04-0.54) K/mm3 Baso # (Auto) 0.04 (0.01-0.08) K/mm3 Sodium (136-145) mEq/L Potassium (3.5-5.1) mEq/L Chloride (98-107) mEq/L Carbon Dioxide (21-32) mEq/L Anion Gap (5-15) BUN (7-18) mg/dL Creatinine (0.7-1.3) mg/dL Est Cr Clr Drug Dosing mL/min Estimated GFR (MDRD) (>60) mL/min BUN/Creatinine Ratio (14-18) Glucose (70-99) mg/dL POC Glucose 134 H 114 H (70-99) mg/dL Hemoglobin A1c ( - 5.6) % Calcium (8.5-10.1) mg/dL Magnesium (1.8-2.4) mg/dL Total Bilirubin (0.2-1.0) mg/dL AST (15-37) U/L ALT (16-63) U/L Alkaline Phosphatase (46-116) U/L C-Reactive Protein (<1.0) mg/dL Total Protein (6.4-8.2) g/dl Albumin (3.4-5.0) g/dl Globulin gm/dL Albumin/Globulin Ratio (1-2) 01/25/21 Range/Units 05:19 WBC (4.23-9.07) K/mm3 RBC (4.63-6.08) M/mm3 Hgb (13.7-17.5) gm/dl Hct (40.1-51.0) % MCV (79.0-92.2) fl MCH (25.7-32.2) pg MCHC (32.2-35.5) g/dl RDW Std Deviation (35.1-43.9) fL Plt Count (163-337) K/mm3 MPV (9.4-12.3) fl Neut % (Auto) (34.0-67.9) % Lymph % (Auto) (21.8-53.1) % [place] % (Auto) (5.3-12.2) % Eos % (Auto) (0.8-7.0) Baso % (Auto) (0.1-1.2) % Neut # (Auto) (1.78-5.38) K/mm3 Lymph # (Auto) (1.32-3.57) K/mm3 [place] # (Auto) (0.30-0.82) K/mm3 Eos # (Auto) (0.04-0.54) K/mm3 Baso # (Auto) (0.01-0.08) K/mm3 Sodium 141 (136-145) mEq/L Potassium 3.6 (3.5-5.1) mEq/L Chloride 106 (98-107) mEq/L Carbon Dioxide 23 (21-32) mEq/L Anion Gap 15.6 H (5-15) BUN 39 H (7-18) mg/dL Creatinine 1.2 (0.7-1.3) mg/dL Est Cr Clr Drug Dosing 56.21 mL/min Estimated GFR (MDRD) > 60 (>60) mL/min BUN/Creatinine Ratio 32.5 H (14-18) Glucose 124 H (70-99) mg/dL POC Glucose (70-99) mg/dL Hemoglobin A1c ( - 5.6) % Calcium 8.9 (8.5-10.1) mg/dL Magnesium 2.3 (1.8-2.4) mg/dL Total Bilirubin 0.6 (0.2-1.0) mg/dL AST 85 H (15-37) U/L ALT 161 H (16-63) U/L Alkaline Phosphatase 75 (46-116) U/L C-Reactive Protein 15.1 H* (<1.0) mg/dL Total Protein 7.4 (6.4-8.2) g/dl Albumin 2.7 L (3.4-5.0) g/dl Globulin 4.7 gm/dL Albumin/Globulin Ratio 0.6 L (1-2) Result Diagrams: 01/25/21 05:19 01/25/21 05:19 Sepsis Event Note - Evaluation Sepsis Screening Result: Possible Sepsis Risk - Focused Exam Vital Signs: Vital Signs Temp Resp BP Pulse Ox 01/25/21 04:00 97.2 F 16 121/72 97 01/25/21 00:00 96.9 F 14 104/88 96 01/24/21 20:00 97.1 F 16 92/76 96 - Problem List & Annotations (1) Hypokalemia SNOMED Code(s): 70577754 Code(s): E87.6 - HYPOKALEMIA Status: Acute Priority: High Current Visit: Yes (2) Pneumonia SNOMED Code(s): 981980677 Code(s): J18.9 - PNEUMONIA, UNSPECIFIED ORGANISM Status: Acute Priority: High Current Visit: Yes Qualifiers: Pneumonia type: due to unspecified organism Laterality: left Lung location: lower lobe of lung Qualified Code(s): J18.9 - Pneumonia, unspecified organism (3) Atrial fibrillation with RVR SNOMED Code(s): 905289401219483 Code(s): I48.91 - UNSPECIFIED ATRIAL FIBRILLATION Status: Chronic Priority: High Current Visit: Yes (4) CHF (congestive heart failure) SNOMED Code(s): 51134144 Code(s): I50.9 - HEART FAILURE, UNSPECIFIED Status: Chronic Priority: High Current Visit: Yes Qualifiers: Heart failure type: unspecified Heart failure chronicity: acute on chronic Qualified Code(s): I50.9 - Heart failure, unspecified (5) Chronic anticoagulation SNOMED Code(s): 957892717 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(s): 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: Chronic Priority: Medium Current Visit: Yes (6) Type 2 diabetes mellitus SNOMED Code(s): 76682063 Code(s): E11.9 - TYPE 2 DIABETES MELLITUS WITHOUT COMPLICATIONS Status: Chronic Priority: High Current Visit: Yes Qualifiers: Diabetes mellitus fdc insulin use: without fdc use Diabetes mellitus complication status: without complication Qualified Code(s): E11.9 - Type 2 diabetes mellitus without complications (7) History of pyelonephritis SNOMED Code(s): 650220179 Code(s): Z87.448 - PERSONAL HISTORY OF OTHER DISEASES OF URINARY SYSTEM Status: Acute Priority: Medium Current Visit: No (8) Renal insufficiency SNOMED Code(s): 232450212, 214494174 Code(s): N28.9 - DISORDER OF KIDNEY AND URETER, UNSPECIFIED Status: Chronic Priority: Medium Current Visit: No (9) Sepsis SNOMED Code(s): 76640418 Code(s): A41.9 - SEPSIS, UNSPECIFIED ORGANISM Status: Acute Priority: High Current Visit: Yes Qualifiers: Sepsis type: sepsis due to unspecified organism Sepsis acute organ dysfunction status: with acute organ dysfunction Severe sepsis acute organ dysfunction type: acute renal failure Acute renal failure type: unspecified Severe sepsis shock status: without septic shock Qualified Code(s): A41.9 - Sepsis, unspecified organism; R65.20 - Severe sepsis without septic shock; N17.9 - Acute kidney failure, unspecified (10) Elevated lactic acid level SNOMED Code(s): 7555017 Code(s): R79.89 - OTHER SPECIFIED ABNORMAL FINDINGS OF BLOOD CHEMISTRY Status: Acute Priority: High Current Visit: Yes (11) Hyponatremia SNOMED Code(s): 71685888 Code(s): E87.1 - HYPO-OSMOLALITY AND HYPONATREMIA Status: Acute Priority: Medium Current Visit: Yes (12) Elevated brain natriuretic peptide (BNP) level SNOMED Code(s): 979225466, 890742320 Code(s): R79.89 - OTHER SPECIFIED ABNORMAL FINDINGS OF BLOOD CHEMISTRY Status: Acute Priority: High Current Visit: Yes (13) Leukocytosis SNOMED Code(s): 941043064, 845210565 Code(s): D72.829 - ELEVATED WHITE BLOOD CELL COUNT, UNSPECIFIED Status: Acute Priority: High Current Visit: Yes Qualifiers: Leukocytosis type: unspecified Qualified Code(s): D72.829 - Elevated white blood cell count, unspecified (14) Acute renal injury SNOMED Code(s): 51460813, 46929322 Code(s): N17.9 - ACUTE KIDNEY FAILURE, UNSPECIFIED Status: Acute Priority: High Current Visit: Yes (15) Acute delirium SNOMED Code(s): 9554766, 5072671 Code(s): R41.0 - DISORIENTATION, UNSPECIFIED Status: Acute Priority: High Current Visit: Yes - Problem List Review Problem List Initiated/Reviewed/Updated: Yes - My Orders Last 24 Hours: My Active Orders 01/24/21 09:00 Diltiazem [Cardizem CD] 360 mg PO DAILY 01/25/21 09:00 Furosemide [Lasix] 40 mg PO BID - Assessment Assessment:: Assessment day of admit: 70-year-old male who presents with fatigue, cough productive of yellow-colored sputum x1 week, fever, chills and decreased appetite. Was found to have pneumonia on the left lower lobe and subsequently an atrial fib with RVR. History of heart failure with a proBNP of 20,453. Recently treated for pyelone phritis with his last dose of antibiotic taken yesterday. He was treated in the emergency department with IV and p.o. Lasix. Chest x-ray subsequently revealed pneumonia of the left lower lobe. Blood cultures were collected and he was started on Rocephin and Zithromax IV. Patient subsequently admitted to ICU. He will be placed on a Lasix drip at 5 mL's per hour. Hopeful that A. fib and RVR will resolve with treatment of pneumonia and CHF. 01/23/2021: 70-year-old male admitted to the floor for A. fib with RVR and pneumonia. Has been receiving azithromycin and Rocephin however this was broadened to Zosyn and vancomycin after the patient was noted to have worsening tachycardia, fever, and elevated lactic acid. He had been receiving Lasix and was noted to have a cute renal injury. He was placed on gentle hydration. Lasix was discontinued. We did restart his scheduled metoprolol however at a much lesser amount due to concerns over sepsis. As needed IV push metoprolol was also ordered. Labs are obtained with WBC of 15.43. Hemoglobin 13.1. Platelet 247,000. Neutrophils elevated at 83.6%. Sodium is 134. Potassium 4.0. Chloride 99. Carbon dioxide 20. Anion gap 19.0. BUN 44. Creatinine 1.6. GFR 43. Glucose 152. Lactic acid 1.2. Repeat lactic acid 2.0. Magnesium 2.4. Bilirubin 0.7. AST 129, ALT 149, alkaline phosphatase 68. CRP 28.8. Procalcitonin 0.81. We will continue current treatment plan and adjust rate control medications as needed. Unknown length of stay. Reviewed echocardiogram obtained on 12/24/2020: 1. Left ventricular ejection fraction, by visual estimation, is 25%. 2. Severely decreased left ventricular systolic function. 3. Moderately reduced right ventricular systolic function 4. Right ventricular size is mildly enlarged. 5. There is mild aortic valve sclerosis without stenosis. 6. Moderate to severe mitral valve regurgitation. 7. Moderate to severe tricuspid valve regurgitation. 8. The right ventricular systolic pressure is mild to moderately elevated at 46.4 mmHg. 9. The study was performed with the patient atrial fibrillation/flutter. 10. Large left pleural effusion. Due to echocardiogram b eing less than 1 month old we will not reorder echocardiogram. 01/24/2021: 70-year-old male admitted for pneumonia and A. fib with RVR. Patient noted to be septic but since has responded well. WBC continues to trend downward. His home p.o. rate control medications were resumed today and we will monitor this. He reports dyspnea with significant exertion but otherwise states his breathing is quite good. Trace pulmonary edema. Discussed with patient and family at bedside plan of care. Report given and discussion with patient's daughter at patient's request. Labs today show WBC of 11.84. Hemoglobin 12.8. Platelet 252,000. Neutrophils are 79.4%. Sodium 139. Potassium 3.4. This is supplemented with p.o. potassium. Anion gap 16.4. BUN 41. Creatinine 1.3. GFR 55. Glucose 116. Lactic acid last night was 1.6. Calcium 8.7. Magnesium 2.3. Total bilirubin 0.6. AST is 73, ALT 141. Alkaline phosphatase is 66. CRP is down to 2.0. Protein 7.0. Albumin 2.5. We will continue current treatment plan and resume some home medications as as mentioned prior. Hopeful for discharge in 1 to 2 days pending continued stability and improvement. Per family patient does have cardiology appointment scheduled already for this coming Thursday. 01/25/2021: This is a 70-year-old male admitted for pneumonia and A. fib with RVR. He responded well to initial treatment. WBC remains mildly elevated at 11.78. Hemoglobin 13.1. Platelet 289,000. Neutrophils 77.5. Sodium is 141. Potassium 3.6. Chloride 106. Carbon oxide 23. Anion gap 15.8. BUN is 39. Creatinine 1.2. GFR greater than 60. Glucose is 124. Lactic acid 1.6. Calcium 8.9. Magnesium 2.3. Total bilirubin 0.6. AST is 85, ALT 161, alkaline phosphatase 75. Ammonia is 11. CRP is 15.1. proBNP is 9786. Protein 7.4. Albumin 2.7. UA is negative however trace protein, 2+ occult blood, and 10-20 urine RBCs are noted. Since admission patient has been noted to have some confusion and hallucinations at nighttime. Today this has continued into today. Nursing notes the patient slept minimally last night. Discussed with Dr. Hamilton, attending hospitalist and we have ordered a head CT (which showed senescent change but nothing acute), 2 view chest x-ray (which showed pleural effusions suggesting CHF and degenerative change in the spine but nothing acute), dceco-nn-toon glucose (123), Lactic acid (1.6), Ammonia (11), UA (negative for infection) and abdominal ultrasound (pancreas not well seen but otherwise unremarkable). We we will schedule 6 mg melatonin at bedtime. We will initiate let oh sleep protocol. Downgraded from ICU to [facility] with telemetry lorie dave. - Plan Plan:: Pneumonia Leukocytosis Elevated lactic acid level, Resolved Sepsis, Resolved -Discontinued Rocephin and azithromycin -Discontinue vancomycin -Continue Zosyn Q8Hr -Blood cultures negative thus far -IS/Acapella -RT consultation -Follow daily labs including CBC and CRP -Sputum culture obtained Atrial fibrillation with RVR, RVR resolved CHF (congestive heart failure) Chronic anticoagulation Elevated brain natriuretic peptide (BNP) level, improved -Continue Eliquis -Heart rate is currently in the 90-110's -Strict I&Os -Daily weight -Low sodium diet -1.5L fluid restriction -RUFINO hose for bilateral lower extremity edema. -Resume home rate control meds -PRN IVP metoprolol for sustained HR >120 -Caution with IV fluids -Telemetry -Re-check BNP Type 2 diabetes mellitus -Hold metformin -Accuchecks QID AC and HS -Low dose sliding scale insulin -Promotions Producer to consult Renal insufficiency Hyponatremia Acute renal injury -Monitor renal function daily -Avoid nephrotoxic drugs -Michael hydration -Caution due to CHF with very low EF Hypokalemia -Monitor -Supplement potassium as needed History of pyelonephritis -No acute concerns Acute delirium -5mg Zyprexa given last night -Discussed with Dr. Hamilton, attending hospitalist -Check ammonia level (WNL) -Check lactic acid level (WNL) -Noncontrast head CT (senescent change but no acute abnormality) -Two-view chest x-ray (increasing pleural effusion suspicious for CHF, diffuse degenerative change within the spine.) -Abdominal ultrasound - (Pancreas not well see but otherwise unremarkable) -Obtain US (No signs of infection) -POC glucose check (WNL) -Start seroquel 6.25mg scheduled at bedtime -Let oh sleep protocol -Start 6mg melatonin scheduled at bedtime Primary care provider: Dr. Robles Psychologist Social: Reji Meeks VTE prophylaxis: Eliquis GI: Pepcid Code Status: DNR/DNI Disposition: Case management and social services technician for discharge planning. Patient will likely be here for 3 to 4 days due to diuresis and management of pneumonia, atrial fib, and CHF.
[2021-01-25] MEDS: Metoprolol Succinate 50 MG Tab.ER PO SCH (08:40)
[2021-01-25] MEDS: Apixaban 5 MG Tab PO SCH ×2 (08:41→20:11)
[2021-01-25] MEDS: Diltiazem 180 MG Cap.CD PO SCH (08:41)
[2021-01-25] MEDS: Famotidine 20 MG Tab PO SCH (08:41)
[2021-01-25] MEDS ORDERED: Furosemide 20 MG Tab PO SCH (09:00)
--- NOTE | 2021-01-25 12:01 | CT ---
Head CT Technique: Multiple axial sections through the brain were obtained. Intravenous contrast was not utilized. Reconstructed coronal and sagittal images were obtained. Comparison: Prior head CT study of 01/22/21. Findings: Ventricles along with basal cisterns and sulci with convexities are mildly to moderately prominent. Very minimal scattered areas of diminished density are noted within the periventricular white matter which most likely represent small vessel ischemic demyelination change. Mild atrophy is also noted within the cerebellum. Minimal calcification is seen within the basal ganglia. No evidence of intracranial hemorrhage is seen. No midline shift or mass-effect is seen. Bone window settings were reviewed. Visualized mastoid sinuses and paranasal sinuses show nothing acute. No acute calvarial abnormality is appreciated. Atherosclerotic calcification is seen within the vertebral vessels and carotid siphon. Impression: 1. Senescent change as described above. No acute intracranial abnormality is appreciated. 2. No appreciable change is seen from previous head CT exam. Diagnostic code #2
--- NOTE | 2021-01-25 12:01 | CR ---
Chest: 2 views of the chest were obtained. Comparison: Prior chest x-ray 01/23/21. Small bilateral pleural effusions are seen. Pleural effusions have increased from previous chest x-ray. Pulmonary vessels are felt to be minimally increased. Heart is slightly enlarged. Bony structure shows diffuse degenerative change within the spine with disc space narrowing and endplate spurring. Impression: 1. Mild increasing pleural effusions, findings are compatible with minimal CHF. 2. Diffuse degenerative change within the spine. Diagnostic code #3
--- NOTE | 2021-01-25 12:08 | US ---
Limited abdominal ultrasound: Multiple real-time images were obtained of the upper right abdomen. Comparison: No prior abdominal imaging is available. Pancreas is not completely seen. Visualized portions show no discrete abnormality. Liver shows no focal abnormality. Gallbladder shows no cholelithiasis. No gallbladder wall thickening or biliary duct dilatation is seen. Right kidney shows no hydronephrosis or mass. Right kidney measures 10.9 cm in length. Proximal aorta shows no aneurysm. Inferior vena cava is patent. Main portal vein shows normal hepatopedal flow. Impression: 1. Pancreas not optimally seen. 2. Other portions of the right upper quadrant abdominal ultrasound are unremarkable. Diagnostic code #2
[2021-01-25] MEDS: Melatonin 3 MG Tab PO SCH (20:06)
[2021-01-25] MEDS: QUEtiapine 25 MG Tab PO SCH (20:06)
[2021-01-26] MEDS: Piperacillin/Tazobactam 4.5 GM in Sodium Chloride 0.9% 100 ML IV SCH ×3 (02:03→17:41)
[2021-01-26] MEDS: Famotidine 20 MG Tab PO SCH (08:25)
[2021-01-26] MEDS: Metoprolol Succinate 50 MG Tab.ER PO SCH (08:25)
[2021-01-26] MEDS: Insulin Lispro 100 UNIT/ML 10 ML Vial SUBCUT SCH ×4 (08:26→23:09)
[2021-01-26] MEDS: Diltiazem 180 MG Cap.CD PO SCH (08:26)
[2021-01-26] MEDS: Apixaban 5 MG Tab PO SCH ×2 (08:26→20:15)
[2021-01-26] MEDS: Potassium Chloride 10 MEQ Tab.ER PO SCH (08:26)
--- NOTE | 2021-01-26 10:42 | PCM.PN ---
- General Info Date of Service: 01/26/21 Admission Dx/Problem (Free Text): Admission Diagnosis/Problem Admission Diagnosis/Problem Pneumonia Functional Status: Reports: Pain Controlled, Tolerating Diet, Urinating - Review of Systems General: Reports: Weakness, Fatigue HEENT: Reports: No Symptoms Pulmonary: Reports: No Symptoms Cardiovascular: Reports: No Symptoms Gastrointestinal: Reports: No Symptoms Musculoskeletal: Reports: No Symptoms Skin: Reports: No Symptoms Psychiatric: Reports: Confusion - Patient Data Vitals - Most Recent: Last Vital Signs Temp 97 F 01/26/21 08:16 Pulse 110 H 01/26/21 08:25 Resp 20 01/26/21 08:16 BP 118/87 01/26/21 08:25 Pulse Ox 95 01/26/21 08:16 Weight - Most Recent: 213 lb 1.6 oz I&O - Last 24 Hours: Intake & Output 01/25/21 01/26/21 01/26/21 22:59 06:59 14:59 Intake Total 880 500 Output Total 400 650 Balance 480 -150 Lab Results Last 24 Hours: Laboratory Results - last 24 hr 01/25/21 01/25/21 01/25/21 Range/Units 10:28 10:28 10:28 WBC (4.23-9.07) K/mm3 RBC (4.63-6.08) M/mm3 Hgb (13.7-17.5) gm/dl Hct (40.1-51.0) % MCV (79.0-92.2) fl MCH (25.7-32.2) pg MCHC (32.2-35.5) g/dl RDW Std Deviation (35.1-43.9) fL Plt Count (163-337) K/mm3 MPV (9.4-12.3) fl Neut % (Auto) (34.0-67.9) % Lymph % (Auto) (21.8-53.1) % [facility] % (Auto) (5.3-12.2) % Eos % (Auto) (0.8-7.0) Baso % (Auto) (0.1-1.2) % Neut # (Auto) (1.78-5.38) K/mm3 Lymph # (Auto) (1.32-3.57) K/mm3 [facility] # (Auto) (0.30-0.82) K/mm3 Eos # (Auto) (0.04-0.54) K/mm3 Baso # (Auto) (0.01-0.08) K/mm3 Sodium (136-145) mEq/L Potassium (3.5-5.1) mEq/L Chloride (98-107) mEq/L Carbon Dioxide (21-32) mEq/L Anion Gap (5-15) BUN (7-18) mg/dL Creatinine (0.7-1.3) mg/dL Est Cr Clr Drug Dosing mL/min Estimated GFR (MDRD) (>60) mL/min BUN/Creatinine Ratio (14-18) Glucose (70-99) mg/dL POC Glucose (70-99) mg/dL Lactic Acid 1.6 (0.4-2.0) mmol/L Calcium (8.5-10.1) mg/dL Magnesium (1.8-2.4) mg/dL Total Bilirubin (0.2-1.0) mg/dL AST (15-37) U/L ALT (16-63) U/L Alkaline Phosphatase (46-116) U/L Ammonia 11 (11-32) umol/L C-Reactive Protein (<1.0) mg/dL NT-Pro-B Natriuret Pep 9786 H (0-125) pg/mL Total Protein (6.4-8.2) g/dl Albumin (3.4-5.0) g/dl Globulin gm/dL Albumin/Globulin Ratio (1-2) Urine Color (Yellow) Urine Appearance (Clear) Urine pH (5.0-8.0) Ur Specific [place] (1.005-1.030) Urine Protein (Negative) Urine Glucose (UA) (Negative) Urine Ketones (Negative) Urine Occult Blood (Negative) Urine Nitrite (Negative) Urine Bilirubin (Negative) Urine Urobilinogen (0.2-1.0) Ur Leukocyte Esterase (Negative) Urine RBC (0-5) /hpf Urine WBC (0-5) /hpf Ur Squamous Epith Cells (0-5) /hpf Urine Bacteria (FEW) /hpf Urine Mucus (FEW) /hpf 01/25/21 01/25/21 01/25/21 Range/Units 11:13 11:37 17:40 WBC (4.23-9.07) K/mm3 RBC (4.63-6.08) M/mm3 Hgb (13.7-17.5) gm/dl Hct (40.1-51.0) % MCV (79.0-92.2) fl MCH (25.7-32.2) pg MCHC (32.2-35.5) g/dl RDW Std Deviation (35.1-43.9) fL Plt Count (163-337) K/mm3 MPV (9.4-12.3) fl Neut % (Auto) (34.0-67.9) % Lymph % (Auto) (21.8-53.1) % [facility] % (Auto) (5.3-12.2) % Eos % (Auto) (0.8-7.0) Baso % (Auto) (0.1-1.2) % Neut # (Auto) (1.78-5.38) K/mm3 Lymph # (Auto) (1.32-3.57) K/mm3 [facility] # (Auto) (0.30-0.82) K/mm3 Eos # (Auto) (0.04-0.54) K/mm3 Baso # (Auto) (0.01-0.08) K/mm3 Sodium (136-145) mEq/L Potassium (3.5-5.1) mEq/L Chloride (98-107) mEq/L Carbon Dioxide (21-32) mEq/L Anion Gap (5-15) BUN (7-18) mg/dL Creatinine (0.7-1.3) mg/dL Est Cr Clr Drug Dosing mL/min Estimated GFR (MDRD) (>60) mL/min BUN/Creatinine Ratio (14-18) Glucose (70-99) mg/dL POC Glucose 123 H 123 H (70-99) mg/dL Lactic Acid (0.4-2.0) mmol/L Calcium (8.5-10.1) mg/dL Magnesium (1.8-2.4) mg/dL Total Bilirubin (0.2-1.0) mg/dL AST (15-37) U/L ALT (16-63) U/L Alkaline Phosphatase (46-116) U/L Ammonia (11-32) umol/L C-Reactive Protein (<1.0) mg/dL NT-Pro-B Natriuret Pep (0-125) pg/mL Total Protein (6.4-8.2) g/dl Albumin (3.4-5.0) g/dl Globulin gm/dL Albumin/Globulin Ratio (1-2) Urine Color Yellow (Yellow) Urine Appearance Clear (Clear) Urine pH 6.0 (5.0-8.0) Ur Specific [place] 1.020 (1.005-1.030) Urine Protein Trace H (Negative) Urine Glucose (UA) Negative (Negative) Urine Ketones Negative (Negative) Urine Occult Blood 2+ H (Negative) Urine Nitrite Negative (Negative) Urine Bilirubin Negative (Negative) Urine Urobilinogen 0.2 (0.2-1.0) Ur Leukocyte Esterase Negative (Negative) Urine RBC 10-20 H (0-5) /hpf Urine WBC 0-5 (0-5) /hpf Ur Squamous Epith Cells 0-5 (0-5) /hpf Urine Bacteria Few (FEW) /hpf Urine Mucus Not seen (FEW) /hpf 01/25/21 01/26/21 01/26/21 Range/Units 20:14 05:12 05:12 WBC 10.87 H (4.23-9.07) K/mm3 RBC 4.16 L (4.63-6.08) M/mm3 Hgb 12.2 L (13.7-17.5) gm/dl Hct 38.8 L (40.1-51.0) % MCV 93.3 H (79.0-92.2) fl MCH 29.3 (25.7-32.2) pg MCHC 31.4 L (32.2-35.5) g/dl RDW Std Deviation 49.5 H (35.1-43.9) fL Plt Count 303 (163-337) K/mm3 MPV 11.2 (9.4-12.3) fl Neut % (Auto) 75.8 H (34.0-67.9) % Lymph % (Auto) 10.9 L (21.8-53.1) % [facility] % (Auto) 10.2 (5.3-12.2) % Eos % (Auto) 1.7 (0.8-7.0) Baso % (Auto) 0.4 (0.1-1.2) % Neut # (Auto) 8.24 H (1.78-5.38) K/mm3 Lymph # (Auto) 1.18 L (1.32-3.57) K/mm3 [facility] # (Auto) 1.11 H (0.30-0.82) K/mm3 Eos # (Auto) 0.19 (0.04-0.54) K/mm3 Baso # (Auto) 0.04 (0.01-0.08) K/mm3 Sodium 145 (136-145) mEq/L Potassium 3.5 (3.5-5.1) mEq/L Chloride 110 H (98-107) mEq/L Carbon Dioxide 26 (21-32) mEq/L Anion Gap 12.5 (5-15) BUN 33 H (7-18) mg/dL Creatinine 1.2 (0.7-1.3) mg/dL Est Cr Clr Drug Dosing 56.21 mL/min Estimated GFR (MDRD) > 60 (>60) mL/min BUN/Creatinine Ratio 27.5 H (14-18) Glucose 115 H (70-99) mg/dL POC Glucose 128 H (70-99) mg/dL Lactic Acid (0.4-2.0) mmol/L Calcium 8.4 L (8.5-10.1) mg/dL Magnesium 2.2 (1.8-2.4) mg/dL Total Bilirubin 0.5 (0.2-1.0) mg/dL AST 52 H (15-37) U/L ALT 131 H (16-63) U/L Alkaline Phosphatase 70 (46-116) U/L Ammonia (11-32) umol/L C-Reactive Protein 9.2 H* (<1.0) mg/dL NT-Pro-B Natriuret Pep (0-125) pg/mL Total Protein 7.0 (6.4-8.2) g/dl Albumin 2.6 L (3.4-5.0) g/dl Globulin 4.4 gm/dL Albumin/Globulin Ratio 0.6 L (1-2) Urine Color (Yellow) Urine Appearance (Clear) Urine pH (5.0-8.0) Ur Specific [place] (1.005-1.030) Urine Protein (Negative) Urine Glucose (UA) (Negative) Urine Ketones (Negative) Urine Occult Blood (Negative) Urine Nitrite (Negative) Urine Bilirubin (Negative) Urine Urobilinogen (0.2-1.0) Ur Leukocyte Esterase (Negative) Urine RBC (0-5) /hpf Urine WBC (0-5) /hpf Ur Squamous Epith Cells (0-5) /hpf Urine Bacteria (FEW) /hpf Urine Mucus (FEW) /hpf 01/26/21 Range/Units 08:13 WBC (4.23-9.07) K/mm3 RBC (4.63-6.08) M/mm3 Hgb (13.7-17.5) gm/dl Hct (40.1-51.0) % MCV (79.0-92.2) fl MCH (25.7-32.2) pg MCHC (32.2-35.5) g/dl RDW Std Deviation (35.1-43.9) fL Plt Count (163-337) K/mm3 MPV (9.4-12.3) fl Neut % (Auto) (34.0-67.9) % Lymph % (Auto) (21.8-53.1) % [facility] % (Auto) (5.3-12.2) % Eos % (Auto) (0.8-7.0) Baso % (Auto) (0.1-1.2) % Neut # (Auto) (1.78-5.38) K/mm3 Lymph # (Auto) (1.32-3.57) K/mm3 [facility] # (Auto) (0.30-0.82) K/mm3 Eos # (Auto) (0.04-0.54) K/mm3 Baso # (Auto) (0.01-0.08) K/mm3 Sodium (136-145) mEq/L Potassium (3.5-5.1) mEq/L Chloride (98-107) mEq/L Carbon Dioxide (21-32) mEq/L Anion Gap (5-15) BUN (7-18) mg/dL Creatinine (0.7-1.3) mg/dL Est Cr Clr Drug Dosing mL/min Estimated GFR (MDRD) (>60) mL/min BUN/Creatinine Ratio (14-18) Glucose (70-99) mg/dL POC Glucose 94 (70-99) mg/dL Lactic Acid (0.4-2.0) mmol/L Calcium (8.5-10.1) mg/dL Magnesium (1.8-2.4) mg/dL Total Bilirubin (0.2-1.0) mg/dL AST (15-37) U/L ALT (16-63) U/L Alkaline Phosphatase (46-116) U/L Ammonia (11-32) umol/L C-Reactive Protein (<1.0) mg/dL NT-Pro-B Natriuret Pep (0-125) pg/mL Total Protein (6.4-8.2) g/dl Albumin (3.4-5.0) g/dl Globulin gm/dL Albumin/Globulin Ratio (1-2) Urine Color (Yellow) Urine Appearance (Clear) Urine pH (5.0-8.0) Ur Specific [place] (1.005-1.030) Urine Protein (Negative) Urine Glucose (UA) (Negative) Urine Ketones (Negative) Urine Occult Blood (Negative) Urine Nitrite (Negative) Urine Bilirubin (Negative) Urine Urobilinogen (0.2-1.0) Ur Leukocyte Esterase (Negative) Urine RBC (0-5) /hpf Urine WBC (0-5) /hpf Ur Squamous Epith Cells (0-5) /hpf Urine Bacteria (FEW) /hpf Urine Mucus (FEW) /hpf [place] Results Last 24 Hours: Microbiology 01/22/21 15:30 Respiratory Culture - Final Sputum - Expectorated Gram Stain - Final Med Orders - Current: Current Medications Acetaminophen (Acetaminophen 325 Mg Tab) 650 mg PO Q4H PRN PRN Reason: Pain (Mild 1-3)/fever Apixaban (Apixaban 5 Mg Tab) 5 mg PO BID [facility] Last Admin: 01/26/21 08:26 Dose: 5 mg Documented by: Diltiazem HCl (Diltiazem 180 Mg Cap.Cd) 360 mg PO DAILY [facility] Last Admin: 01/26/21 08:26 Dose: 360 mg Documented by: Docusate Sodium (Docusate Sodium 100 Mg Cap) 100 mg PO DAILY PRN PRN Reason: Constipation Last Admin: 01/22/21 18:00 Dose: 100 mg Documented by: Famotidine (Famotidine 20 Mg Tab) 20 mg PO DAILY [facility] Last Admin: 01/26/21 08:25 Dose: 20 mg Documented by: Hydromorphone HCl (Hydromorphone 0.5 Mg/0.5 Ml Syringe) 0.5 mg IVPUSH Q2H PRN PRN Reason: Pain (severe 7-10) Piperacillin Sod/Tazobactam (Sod 4.5 gm/ Sodium Chloride) 100 mls @ 25 mls/hr IV Q8H [facility] Last Admin: 01/26/21 09:33 Dose: 25 mls/hr Documented by: Insulin Human Lispro (Insulin Lispro 100 Unit/Ml 10 Ml Vial) 0 unit SUBCUT QIDACANDBED [facility]; Protocol Last Admin: 01/26/21 08:26 Dose: Not Given Documented by: Melatonin (Melatonin 3 Mg Tab) 6 mg PO BEDTIME [facility] Last Admin: 01/25/21 20:06 Dose: 6 mg Documented by: Metoprolol Succinate (Metoprolol Succinate 50 Mg Tab.Er) 75 mg PO DAILY [facility] Last Admin: 01/26/21 08:25 Dose: 75 mg Documented by: Metoprolol Tartrate (Metoprolol Tartrate 5 Mg/5 Ml Sdv) 5 mg IV Q4H PRN PRN Reason: Tachycardia Oxycodone HCl (Oxycodone 5 Mg Tab) 5 mg PO Q4H PRN PRN Reason: Pain (moderate 4-6) Potassium Chloride (Potassium Chloride 10 Meq Tab.Er) 10 meq PO DAILY [facility] Last Admin: 01/26/21 08:26 Dose: 10 meq Documented by: Quetiapine Fumarate (Quetiapine 25 Mg Tab) 6.25 mg PO BEDTIME [facility] Last Admin: 01/25/21 20:06 Dose: 6.25 mg Documented by: Sodium Chloride (Sodium Chloride 0.9% 10 Ml Syringe) 10 ml FLUSH ASDIRECTED PRN PRN Reason: Keep Vein Open Last Admin: 01/22/21 06:55 Dose: 10 ml Documented by: Discontinued Medications Diltiazem HCl (Diltiazem 120 Mg Cap.Cd) 120 mg PO ONETIME ONE Stop: 01/22/21 06:37 Last Admin: 01/22/21 06:55 Dose: 120 mg Documented by: Furosemide (Furosemide 40 Mg Tab) 40 mg PO ONETIME ONE Stop: 01/22/21 06:50 Last Admin: 01/22/21 06:56 Dose: 40 mg Documented by: Furosemide (Furosemide 40 Mg/4 Ml Vial) 40 mg IVPUSH NOW ONE Stop: 01/22/21 08:26 Last Admin: 01/22/21 08:35 Dose: 40 mg Documented by: Furosemide (Furosemide 20 Mg Tab) 40 mg PO BID JEMIMA Last Admin: 01/25/21 08:40 Dose: 40 mg Documented by: Diltiazem HCl 100 mg/ Sodium (Chloride) 100 mls @ 5 mls/hr IV TITRATE JEMIMA; Protocol Last Admin: 01/22/21 08:35 Dose: 5 mg/hr, 5 mls/hr Documented by: Ceftriaxone Sodium 2 gm/ (Sodium Chloride) 100 mls @ 200 mls/hr IV ONETIME ONE Stop: 01/22/21 09:04 Last Admin: 01/22/21 08:43 Dose: 200 mls/hr Documented by: Azithromycin 500 mg/ Sodium (Chloride) 250 mls @ 250 mls/hr IV ONETIME ONE Stop: 01/22/21 10:04 Last Admin: 01/22/21 09:28 Dose: 250 mls/hr Documented by: Furosemide 100 mg/ Sodium (Chloride) 100 mls @ 5 mls/hr IV CONTINUOUS JEMIMA; Protocol Azithromycin 500 mg/ Sodium (Chloride) 250 mls @ 250 mls/hr IV Q24H JEMIMA Last Admin: 01/22/21 13:55 Dose: Not Given Documented by: Ceftriaxone Sodium 2 gm/ (Sodium Chloride) 100 mls @ 200 mls/hr IV ONETIME ONE Stop: 01/22/21 12:46 Last Admin: 01/22/21 13:03 Dose: 200 mls/hr Documented by: Furosemide 100 mg/ Sodium (Chloride) 100 mls @ 5 mls/hr IV CONTINUOUS JEMIMA; Protocol Last Admin: 01/22/21 13:15 Dose: 5 ml/hr, 5 mls/hr Documented by: Azithromycin 500 mg/ Sodium (Chloride) 250 mls @ 250 mls/hr IV Q24H JEMIMA Ceftriaxone Sodium 1 gm/ (Sodium Chloride) 100 mls @ 200 mls/hr IV Q24H JEMIMA Magnesium Sulfate/Dextrose 1 (gm/ Premix) 100 mls @ 100 mls/hr IV ONETIME ONE Stop: 01/22/21 18:14 Last Admin: 01/22/21 17:25 Dose: 100 mls/hr Documented by: Piperacillin Sod/Tazobactam (Sod 4.5 gm/ Sodium Chloride) 100 mls @ 200 mls/hr IV ONETIME ONE Stop: 01/22/21 18:29 Last Admin: 01/22/21 17:25 Dose: 200 mls/hr Documented by: Lactated Ringer's (Ringers, Lactated) 250 mls [facility] Last Admin: 01/22/21 17:30 Dose: 125 mls/hr Documented by: Vancomycin HCl 1 gm/Vancomycin HCl 500 mg/ Sodium Chloride 500 mls @ 250 mls/hr IV ONETIME ONE Stop: 01/22/21 20:59 Last Admin: 01/22/21 18:33 Dose: 250 mls/hr Documented by: Vancomycin HCl 1 gm/Vancomycin HCl 250 mg/ Sodium Chloride 250 mls @ 157 mls/hr IV Q24H [facility] Last Admin: 01/23/21 18:50 Dose: 157 mls/hr Documented by: Lactated Ringer's (Ringers, Lactated) 500 mls @ 250 mls/hr IV ONETIME ONE Stop: 01/23/21 00:46 Last Admin: 01/22/21 23:00 Dose: 250 mls/hr Documented by: Lactated Ringer's (Ringers, Lactated) 1,000 mls @ 100 [facility] Last Admin: 01/23/21 01:17 Dose: 100 mls/hr Documented by: Lactated Ringer's (Ringers, Lactated) 1,000 mls @ 75 [facility] Last Admin: 01/23/21 08:13 Dose: 75 mls/hr Documented by: Meclizine HCl (Meclizine 12.5 Mg Tab) 12.5 mg PO ONETIME ONE Stop: 01/22/21 06:44 Last Admin: 01/22/21 06:55 Dose: 12.5 mg Documented by: Melatonin (Melatonin 3 Mg Tab) 3 mg PO BEDTIME PRN PRN Reason: Sleep Last Admin: 01/24/21 20:16 Dose: 3 mg Documented by: Metoprolol Succinate (Metoprolol Succinate 50 Mg Tab.Er) 75 mg PO ONETIME ONE Stop: 01/22/21 06:37 Last Admin: 01/22/21 06:54 Dose: 75 mg Documented by: Metoprolol Succinate (Metoprolol Succinate 25 Mg Tab.Er) 12.5 mg PO ONETIME ONE Stop: 01/22/21 19:08 Last Admin: 01/22/21 19:38 Dose: 12.5 mg Documented by: Metoprolol Succinate (Metoprolol Succinate 25 Mg Tab.Er) 25 mg PO ONETIME ONE Stop: 01/22/21 22:08 Last Admin: 01/22/21 22:21 Dose: 25 mg Documented by: Metoprolol Succinate (Metoprolol Succinate 25 Mg Tab.Er) 12.5 mg PO ONETIME ONE Stop: 01/23/21 22:25 Last Admin: 01/23/21 22:35 Dose: 12.5 mg Documented by: Metoprolol Succinate (Metoprolol Succinate 25 Mg Tab.Er) 25 mg PO DAILY [facility] Last Admin: 01/24/21 08:39 Dose: 25 mg Documented by: Metoprolol Succinate (Metoprolol Succinate 50 Mg Tab.Er) 50 mg PO ONETIME ONE Stop: 01/24/21 11:38 Last Admin: 01/24/21 11:43 Dose: 50 mg Documented by: Metoprolol Tartrate (Metoprolol Tartrate 5 Mg/5 Ml Sdv) 5 mg IV Q6H PRN PRN Reason: Tachycardia Last Admin: 01/22/21 17:06 Dose: 5 mg Documented by: Metoprolol Tartrate (Metoprolol Tartrate 25 Mg Tab) 12.5 mg PO Q12H [facility] Last Admin: 01/23/21 08:14 Dose: 12.5 mg Documented by: Metoprolol Tartrate (Metoprolol Tartrate 25 Mg Tab) 25 mg PO ONETIME ONE Stop: 01/23/21 16:03 Last Admin: 01/23/21 16:20 Dose: 25 mg Documented by: Metoprolol Tartrate (Metoprolol Tartrate 25 Mg Tab) 12.5 mg PO ONETIME ONE Stop: 01/23/21 18:23 Last Admin: 01/23/21 18:55 Dose: 12.5 mg Documented by: Olanzapine (Olanzapine 5 Mg Tab) 5 mg PO ONETIME ONE Stop: 01/25/21 02:39 Last Admin: 01/25/21 02:50 Dose: 5 mg Documented by: Potassium Chloride (Potassium Chloride 20 Meq Tab.Er) 40 meq PO ONETIME ONE Stop: 01/22/21 12:21 Last Admin: 01/22/21 13:17 Dose: 40 meq Documented by: Potassium Chloride (Potassium Chloride 20 Meq Tab.Er) 40 meq PO ONETIME ONE Stop: 01/22/21 16:01 Last Admin: 01/22/21 17:04 Dose: 40 meq Documented by: Potassium Chloride (Potassium Chloride 20 Meq Tab.Er) 40 meq PO ONETIME ONE Stop: 01/24/21 10:28 Last Admin: 01/24/21 10:45 Dose: 40 meq Documented by: Vancomycin HCl (Pharmacy To Dose - Vancomycin) 0 dose .XX ASDIRECTED PRN PRN Reason: RX TO DOSE VANCOMYCIN - Exam General: Alert, No Acute Distress HEENT: EOMI, Mucous Membr. Moist/[place] Neck: Supple Lungs: Clear to Auscultation, Normal Respiratory Effort Cardiovascular: Regular Rate, Regular Rhythm GI/Abdominal Exam: Soft, Non-Tender Back Exam: Normal Inspection Extremities: Normal Inspection Skin: Warm, Dry, Intact Neurological: No New Focal Deficit Psy/Mental Status: Normal Affect, Normal Mood - Patient Data Lab Results Last 24 hrs: Laboratory Results - last 24 hr 01/25/21 01/25/21 01/25/21 Range/Units 10:28 10:28 10:28 WBC (4.23-9.07) K/mm3 RBC (4.63-6.08) M/mm3 Hgb (13.7-17.5) gm/dl Hct (40.1-51.0) % MCV (79.0-92.2) fl MCH (25.7-32.2) pg MCHC (32.2-35.5) g/dl RDW Std Deviation (35.1-43.9) fL Plt Count (163-337) K/mm3 MPV (9.4-12.3) fl Neut % (Auto) (34.0-67.9) % Lymph % (Auto) (21.8-53.1) % [facility] % (Auto) (5.3-12.2) % Eos % (Auto) (0.8-7.0) Baso % (Auto) (0.1-1.2) % Neut # (Auto) (1.78-5.38) K/mm3 Lymph # (Auto) (1.32-3.57) K/mm3 [facility] # (Auto) (0.30-0.82) K/mm3 Eos # (Auto) (0.04-0.54) K/mm3 Baso # (Auto) (0.01-0.08) K/mm3 Sodium (136-145) mEq/L Potassium (3.5-5.1) mEq/L Chloride (98-107) mEq/L Carbon Dioxide (21-32) mEq/L Anion Gap (5-15) BUN (7-18) mg/dL Creatinine (0.7-1.3) mg/dL Est Cr Clr Drug Dosing mL/min Estimated GFR (MDRD) (>60) mL/min BUN/Creatinine Ratio (14-18) Glucose (70-99) mg/dL POC Glucose (70-99) mg/dL Lactic Acid 1.6 (0.4-2.0) mmol/L Calcium (8.5-10.1) mg/dL Magnesium (1.8-2.4) mg/dL Total Bilirubin (0.2-1.0) mg/dL AST (15-37) U/L ALT (16-63) U/L Alkaline Phosphatase (46-116) U/L Ammonia 11 (11-32) umol/L C-Reactive Protein (<1.0) mg/dL NT-Pro-B Natriuret Pep 9786 H (0-125) pg/mL Total Protein (6.4-8.2) g/dl Albumin (3.4-5.0) g/dl Globulin gm/dL Albumin/Globulin Ratio (1-2) Urine Color (Yellow) Urine Appearance (Clear) Urine pH (5.0-8.0) Ur Specific [place] (1.005-1.030) Urine Protein (Negative) Urine Glucose (UA) (Negative) Urine Ketones (Negative) Urine Occult Blood (Negative) Urine Nitrite (Negative) Urine Bilirubin (Negative) Urine Urobilinogen (0.2-1.0) Ur Leukocyte Esterase (Negative) Urine RBC (0-5) /hpf Urine WBC (0-5) /hpf Ur Squamous Epith Cells (0-5) /hpf Urine Bacteria (FEW) /hpf Urine Mucus (FEW) /hpf 01/25/21 01/25/21 01/25/21 Range/Units 11:13 11:37 17:40 WBC (4.23-9.07) K/mm3 RBC (4.63-6.08) M/mm3 Hgb (13.7-17.5) gm/dl Hct (40.1-51.0) % MCV (79.0-92.2) fl MCH (25.7-32.2) pg MCHC (32.2-35.5) g/dl RDW Std Deviation (35.1-43.9) fL Plt Count (163-337) K/mm3 MPV (9.4-12.3) fl Neut % (Auto) (34.0-67.9) % Lymph % (Auto) (21.8-53.1) % [facility] % (Auto) (5.3-12.2) % Eos % (Auto) (0.8-7.0) Baso % (Auto) (0.1-1.2) % Neut # (Auto) (1.78-5.38) K/mm3 Lymph # (Auto) (1.32-3.57) K/mm3 [facility] # (Auto) (0.30-0.82) K/mm3 Eos # (Auto) (0.04-0.54) K/mm3 Baso # (Auto) (0.01-0.08) K/mm3 Sodium (136-145) mEq/L Potassium (3.5-5.1) mEq/L Chloride (98-107) mEq/L Carbon Dioxide (21-32) mEq/L Anion Gap (5-15) BUN (7-18) mg/dL Creatinine (0.7-1.3) mg/dL Est Cr Clr Drug Dosing mL/min Estimated GFR (MDRD) (>60) mL/min BUN/Creatinine Ratio (14-18) Glucose (70-99) mg/dL POC Glucose 123 H 123 H (70-99) mg/dL Lactic Acid (0.4-2.0) mmol/L Calcium (8.5-10.1) mg/dL Magnesium (1.8-2.4) mg/dL Total Bilirubin (0.2-1.0) mg/dL AST (15-37) U/L ALT (16-63) U/L Alkaline Phosphatase (46-116) U/L Ammonia (11-32) umol/L C-Reactive Protein (<1.0) mg/dL NT-Pro-B Natriuret Pep (0-125) pg/mL Total Protein (6.4-8.2) g/dl Albumin (3.4-5.0) g/dl Globulin gm/dL Albumin/Globulin Ratio (1-2) Urine Color Yellow (Yellow) Urine Appearance Clear (Clear) Urine pH 6.0 (5.0-8.0) Ur Specific [place] 1.020 (1.005-1.030) Urine Protein Trace H (Negative) Urine Glucose (UA) Negative (Negative) Urine Ketones Negative (Negative) Urine Occult Blood 2+ H (Negative) Urine Nitrite Negative (Negative) Urine Bilirubin Negative (Negative) Urine Urobilinogen 0.2 (0.2-1.0) Ur Leukocyte Esterase Negative (Negative) Urine RBC 10-20 H (0-5) /hpf Urine WBC 0-5 (0-5) /hpf Ur Squamous Epith Cells 0-5 (0-5) /hpf Urine Bacteria Few (FEW) /hpf Urine Mucus Not seen (FEW) /hpf 01/25/21 01/26/21 01/26/21 Range/Units 20:14 05:12 05:12 WBC 10.87 H (4.23-9.07) K/mm3 RBC 4.16 L (4.63-6.08) M/mm3 Hgb 12.2 L (13.7-17.5) gm/dl Hct 38.8 L (40.1-51.0) % MCV 93.3 H (79.0-92.2) fl MCH 29.3 (25.7-32.2) pg MCHC 31.4 L (32.2-35.5) g/dl RDW Std Deviation 49.5 H (35.1-43.9) fL Plt Count 303 (163-337) K/mm3 MPV 11.2 (9.4-12.3) fl Neut % (Auto) 75.8 H (34.0-67.9) % Lymph % (Auto) 10.9 L (21.8-53.1) % [facility] % (Auto) 10.2 (5.3-12.2) % Eos % (Auto) 1.7 (0.8-7.0) Baso % (Auto) 0.4 (0.1-1.2) % Neut # (Auto) 8.24 H (1.78-5.38) K/mm3 Lymph # (Auto) 1.18 L (1.32-3.57) K/mm3 [facility] # (Auto) 1.11 H (0.30-0.82) K/mm3 Eos # (Auto) 0.19 (0.04-0.54) K/mm3 Baso # (Auto) 0.04 (0.01-0.08) K/mm3 Sodium 145 (136-145) mEq/L Potassium 3.5 (3.5-5.1) mEq/L Chloride 110 H (98-107) mEq/L Carbon Dioxide 26 (21-32) mEq/L Anion Gap 12.5 (5-15) BUN 33 H (7-18) mg/dL Creatinine 1.2 (0.7-1.3) mg/dL Est Cr Clr Drug Dosing 56.21 mL/min Estimated GFR (MDRD) > 60 (>60) mL/min BUN/Creatinine Ratio 27.5 H (14-18) Glucose 115 H (70-99) mg/dL POC Glucose 128 H (70-99) mg/dL Lactic Acid (0.4-2.0) mmol/L Calcium 8.4 L (8.5-10.1) mg/dL Magnesium 2.2 (1.8-2.4) mg/dL Total Bilirubin 0.5 (0.2-1.0) mg/dL AST 52 H (15-37) U/L ALT 131 H (16-63) U/L Alkaline Phosphatase 70 (46-116) U/L Ammonia (11-32) umol/L C-Reactive Protein 9.2 H* (<1.0) mg/dL NT-Pro-B Natriuret Pep (0-125) pg/mL Total Protein 7.0 (6.4-8.2) g/dl Albumin 2.6 L (3.4-5.0) g/dl Globulin 4.4 gm/dL Albumin/Globulin Ratio 0.6 L (1-2) Urine Color (Yellow) Urine Appearance (Clear) Urine pH (5.0-8.0) Ur Specific [place] (1.005-1.030) Urine Protein (Negative) Urine Glucose (UA) (Negative) Urine Ketones (Negative) Urine Occult Blood (Negative) Urine Nitrite (Negative) Urine Bilirubin (Negative) Urine Urobilinogen (0.2-1.0) Ur Leukocyte Esterase (Negative) Urine RBC (0-5) /hpf Urine WBC (0-5) /hpf Ur Squamous Epith Cells (0-5) /hpf Urine Bacteria (FEW) /hpf Urine Mucus (FEW) /hpf 01/26/ Range/Units 08:13 WBC (4.23-9.07) K/mm3 RBC (4.63-6.08) M/mm3 Hgb (13.7-17.5) gm/dl Hct (40.1-51.0) % MCV (79.0-92.2) fl MCH (25.7-32.2) pg MCHC (32.2-35.5) g/dl RDW Std Deviation (35.1-43.9) fL Plt Count (163-337) K/mm3 MPV (9.4-12.3) fl Neut % (Auto) (34.0-67.9) % Lymph % (Auto) (21.8-53.1) % [facility] % (Auto) (5.3-12.2) % Eos % (Auto) (0.8-7.0) Baso % (Auto) (0.1-1.2) % Neut # (Auto) (1.78-5.38) K/mm3 Lymph # (Auto) (1.32-3.57) K/mm3 [facility] # (Auto) (0.30-0.82) K/mm3 Eos # (Auto) (0.04-0.54) K/mm3 Baso # (Auto) (0.01-0.08) K/mm3 Sodium (136-145) mEq/L Potassium (3.5-5.1) mEq/L Chloride (98-107) mEq/L Carbon Dioxide (21-32) mEq/L Anion Gap (5-15) BUN (7-18) mg/dL Creatinine (0.7-1.3) mg/dL Est Cr Clr Drug Dosing mL/min Estimated GFR (MDRD) (>60) mL/min BUN/Creatinine Ratio (14-18) Glucose (70-99) mg/dL POC Glucose 94 (70-99) mg/dL Lactic Acid (0.4-2.0) mmol/L Calcium (8.5-10.1) mg/dL Magnesium (1.8-2.4) mg/dL Total Bilirubin (0.2-1.0) mg/dL AST (15-37) U/L ALT (16-63) U/L Alkaline Phosphatase (46-116) U/L Ammonia (11-32) umol/L C-Reactive Protein (<1.0) mg/dL NT-Pro-B Natriuret Pep (0-125) pg/mL Total Protein (6.4-8.2) g/dl Albumin (3.4-5.0) g/dl Globulin gm/dL Albumin/Globulin Ratio (1-2) Urine Color (Yellow) Urine Appearance (Clear) Urine pH (5.0-8.0) Ur Specific [place] (1.005-1.030) Urine Protein (Negative) Urine Glucose (UA) (Negative) Urine Ketones (Negative) Urine Occult Blood (Negative) Urine Nitrite (Negative) Urine Bilirubin (Negative) Urine Urobilinogen (0.2-1.0) Ur Leukocyte Esterase (Negative) Urine RBC (0-5) /hpf Urine WBC (0-5) /hpf Ur Squamous Epith Cells (0-5) /hpf Urine Bacteria (FEW) /hpf Urine Mucus (FEW) /hpf Result Diagrams: 01/26/21 05:12 01/26/21 05:12 [place] Results Last 24 hrs: Microbiology 01/22/21 15:30 Respiratory Culture - Final Sputum - Expectorated Gram Stain - Final Sepsis Event Note - Evaluation Sepsis Screening Result: Possible Sepsis Risk - Focused Exam Vital Signs: Vital Signs Temp Pulse Resp BP BP Pulse Ox 01/26/21 08:25 110 H 118/87 01/26/21 08:16 97 F 20 118/87 95 01/26/21 04:00 19 102/79 95 01/26/21 00:00 18 93 L - Problem List Review Problem List Initiated/Reviewed/Updated: Yes - Assessment Assessment:: Assessment day of admit: 70-year-old male who presents with fatigue, cough productive of yellow-colored sputum x1 week, fever, chills and decreased appetite. Was found to have pneumonia on the left lower lobe and subsequently an atrial fib with RVR. History of heart failure with a proBNP of 20,453. Recently treated for pyelonep hritis with his last dose of antibiotic taken yesterday. He was treated in the emergency department with IV and p.o. Lasix. Chest x-ray subsequently revealed pneumonia of the left lower lobe. Blood cultures were collected and he was started on Rocephin and Zithromax IV. Patient subsequently admitted to ICU. He will be placed on a Lasix drip at 5 mL's per hour. Hopeful that A. fib and RVR will resolve with treatment of pneumonia and CHF. 01/23/2021: 70-year-old male admitted to the floor for A. fib with RVR and pneumonia. Has been receiving azithromycin and Rocephin however this was broadened to Zosyn and vancomycin after the patient was noted to have worsening tachycardia, fever, and elevated lactic acid. He had been receiving Lasix and was noted to have acute renal injury. He was placed on gentle hydration. Lasix was discontinued. We did restart his scheduled metoprolol however at a much lesser amount due to concerns over sepsis. As needed IV push metoprolol was also ordered. Labs are obtained with WBC of 15.43. Hemoglobin 13.1. Platelet 247,000. Neutrophils elevated at 83.6%. Sodium is 134. Potassium 4.0. Chloride 99. Carbon dioxide 20. Anion gap 19.0. BUN 44. Creatinine 1.6. GFR 43. Glucose 152. Lactic acid 1.2. Repeat lactic acid 2.0. Magnesium 2.4. Bilirubin 0.7. AST 129, ALT 149, alkaline phosphatase 68. CRP 28.8. Procalcitonin 0.81. We will continue current treatment plan and adjust rate control medications as needed. Unknown length of stay. Reviewed echocardiogram obtained on 12/24/2020: 1. Left ventricular ejection fraction, by visual estimation, is 25%. 2. Severely decreased left ventricular systolic function. 3. Moderately reduced right ventricular systolic function 4. Right ventricular size is mildly enlarged. 5. There is mild aortic valve sclerosis without stenosis. 6. Moderate to severe mitral valve regurgitation. 7. Moderate to severe tricuspid valve regurgitation. 8. The right ventricular systolic pressure is mild to moderately elevated at 46.4 mmHg. 9. The study was performed with the patient atrial fibrillation/flutter. 10. Large left pleural effusion. Due to echocardiogram be ing less than 1 month old we will not reorder echocardiogram. 01/24/2021: 70-year-old male admitted for pneumonia and A. fib with RVR. Patient noted to be septic but since has responded well. WBC continues to trend downward. His home p.o. rate control medications were resumed today and we will monitor this. He reports dyspnea with significant exertion but otherwise states his breathing is quite good. Trace pulmonary edema. Discussed with patient and family at bedside plan of care. Report given and discussion with patient's daughter at patient's request. Labs today show WBC of 11.84. Hemoglobin 12.8. Platelet 252,000. Neutrophils are 79.4%. Sodium 139. Potassium 3.4. This is supplemented with p.o. potassium. Anion gap 16.4. BUN 41. Creatinine 1.3. G FR 55. Glucose 116. Lactic acid last night was 1.6. Calcium 8.7. Magnesium 2.3. Total bilirubin 0.6. AST is 73, ALT 141. Alkaline phosphatase is 66. CRP is down to 2.0. Protein 7.0. Albumin 2.5. We will continue current treatment plan and resume some home medications as as mentioned prior. Hopeful for discharge in 1 to 2 days pending continued stability and improvement. Per family patient does have cardiology appointment scheduled already for this coming Thursday. 01/25/2021: This is a 70-year-old male admitted for pneumonia and A. fib with RVR. He responded well to initial treatment. WBC remains mildly elevated at 11.78. Hemoglobin 13.1. Platelet 289,000. Neutrophils 77.5. Sodium is 141. Potassium 3.6. Chloride 106. Carbon oxide 23. Anion gap 15.8. BUN is 39. Creatinine 1.2. GFR greater than 60. Glucose is 124. Lactic acid 1.6. Calcium 8.9. Magnesium 2.3. Total bilirubin 0.6. AST is 85, ALT 161, alkaline phosphatase 75. Ammonia is 11. CRP is 15.1. proBNP is 9786. Protein 7.4. Albumin 2.7. UA is negative however trace protein, 2+ occult blood, and 10-20 urine RBCs are noted. Since admission patient has been noted to have some confusion and hallucinations at nighttime. Today this has continued into today. Nursing notes the patient slept minimally last night. Discussed with Dr. Hamilton, attending hospitalist and we have ordered a head CT (which showed senescent change but nothing acute), 2 view chest x-ray (which showed pleural effusions suggesting CHF and degenerative change in the spine but nothing acute), [id number]-mo-[id number] glucose (123), Lactic acid (1.6), Ammonia (11), UA (negative for infection) and abdominal ultrasound (pancreas not well seen but otherwise unremarkable). We we will schedule 6 mg melatonin at bedtime. We will initiate let me sleep protocol. Downgraded from ICU to [facility] with telemetry today. 01/26/2021 Extensive workup yesterday to evaluate for encephalopathy; symptoms likely secondary to ICU acquired delirium. Will continue to monitor symptoms. appears to sleep better with initiation of seroquel and increased melatonin dosing. Will continue zosyn - Plan Plan:: Pneumonia Leukocytosis Elevated lactic acid level, Resolved Sepsis, Resolved -Discontinued Rocephin and azithromycin -Discontinue vancomycin -Continue Zosyn Q8Hr -Blood cultures negative thus far -IS/Acapella -RT consultation -Follow daily labs including CBC and CRP -Sputum culture obtained Atrial fibrillation with RVR, RVR resolved CHF (congestive heart failure) Chronic anticoagulation Elevated brain natriuretic peptide (BNP) level, improved -Continue Eliquis -Heart rate is currently in the 90-110's -Strict I&Os -Daily weight -Low sodium diet -1.5L fluid restriction -RUFINO hose for bilateral lower extremity edema. -Resume home rate control meds -PRN IVP metoprolol for sustained HR >120 -Caution with IV fluids -Telemetry -Re-check BNP Type 2 diabetes mellitus -Hold metformin -Accuchecks QID AC and HS -Low dose sliding scale insulin -Mask Design Engineer to consult Renal insufficiency Hyponatremia Acute renal injury -Monitor renal function daily -Avoid nephrotoxic drugs -Michael hydration -Caution due to CHF with very low EF Hypokalemia -Monitor -Supplement potassium as needed History of pyelonephritis -No acute concerns Acute delirium -5mg Zyprexa given last night -Discussed with Dr. Hamilton, attending hospitalist -Check ammonia level (WNL) -Check lactic acid level (WNL) -Noncontrast head CT (senescent change but no acute abnormality) -Two-view chest x-ray (increasing pleural effusion suspicious for CHF, diffuse degenerative change within the spine.) -Abdominal ultrasound - (Pancreas not well see but otherwise unremarkable) -Obtain US (No signs of infection) -POC glucose check (WNL) -Start seroquel 6.25mg scheduled at bedtime -Let me sleep protocol -Start 6mg melatonin scheduled at bedtime Primary care provider: Dr. Robles Fourchette Sewer: Reji Meeks VTE prophylaxis: Eliquis GI: Pepcid Code Status: DNR/DNI Disposition: Case management and social service technician for discharge planning. Patient will likely be here for 3 to 4 days due to diuresis and management of pn eumonia, atrial fib, and CHF.
[2021-01-26] MEDS ORDERED: Potassium Chloride 20 MEQ Tab.ER PO ONE (10:43)
[2021-01-26] MEDS: QUEtiapine 25 MG Tab PO SCH (20:15)
[2021-01-26] MEDS: Melatonin 3 MG Tab PO SCH (20:16)
[2021-01-27] MEDS: Piperacillin/Tazobactam 4.5 GM in Sodium Chloride 0.9% 100 ML IV SCH ×3 (04:12→17:38)
[2021-01-27] MEDS: Metoprolol Succinate 50 MG Tab.ER PO SCH (08:39)
[2021-01-27] MEDS: Potassium Chloride 10 MEQ Tab.ER PO SCH (08:39)
[2021-01-27] MEDS: Famotidine 20 MG Tab PO SCH (08:39)
[2021-01-27] MEDS: Diltiazem 180 MG Cap.CD PO SCH (08:39)
[2021-01-27] MEDS: Apixaban 5 MG Tab PO SCH ×2 (08:40→20:02)
[2021-01-27] MEDS: Insulin Lispro 100 UNIT/ML 10 ML Vial SUBCUT SCH ×4 (08:47→21:17)
[2021-01-27] MEDS ORDERED: Metoprolol Succinate 25 MG Tab.ER PO ONE (12:30)
--- NOTE | 2021-01-27 12:34 | PCM.PN ---
- General Info Date of Service: 01/27/21 Admission Dx/Problem (Free Text): Admission Diagnosis/Problem Admission Diagnosis/Problem Pneumonia Subjective Update: Patient delirious last night per report not much sleep this morning alert to location but not time Mild tachycardia continues Functional Status: Reports: Tolerating Diet - Review of Systems General: Reports: Fatigue HEENT: Reports: No Symptoms Pulmonary: Reports: No Symptoms Genitourinary: Reports: No Symptoms Skin: Reports: No Symptoms Neurological: Reports: Confusion Psychiatric: Reports: Confusion - Patient Data Vitals - Most Recent: Last Vital Signs Temp 97.7 F 01/27/21 08:00 Pulse 104 H 01/27/21 08:39 Resp 18 01/27/21 08:00 BP 120/90 01/27/21 08:39 Pulse Ox 99 01/27/21 08:00 Weight - Most Recent: 213 lb 4.8 oz I&O - Last 24 Hours: Intake & Output 01/26/21 01/27/21 01/27/21 22:59 06:59 14:59 Intake Total 880 500 Output Total 900 850 Balance -20 -350 Lab Results Last 24 Hours: Laboratory Results - last 24 hr 01/26/21 01/26/21 01/27/21 Range/Units 16:43 20:20 08:45 POC Glucose 159 H 161 H 121 H (70-99) mg/dL 01/27/21 Range/Units 11:46 POC Glucose 110 H (70-99) mg/dL Med Orders - Current: Current Medications Acetaminophen (Acetaminophen 325 Mg Tab) 650 mg PO Q4H PRN PRN Reason: Pain (Mild 1-3)/fever Apixaban (Apixaban 5 Mg Tab) 5 mg PO BID [facility] Last Admin: 01/27/21 08:40 Dose: 5 mg Documented by: Diltiazem HCl (Diltiazem 180 Mg Cap.Cd) 360 mg PO DAILY [facility] Last Admin: 01/27/21 08:39 Dose: 360 mg Documented by: Docusate Sodium (Docusate Sodium 100 Mg Cap) 100 mg PO DAILY PRN PRN Reason: Constipation Last Admin: 01/22/21 18:00 Dose: 100 mg Documented by: Famotidine (Famotidine 20 Mg Tab) 20 mg PO DAILY [facility] Last Admin: 01/27/21 08:39 Dose: 20 mg Documented by: Hydromorphone HCl (Hydromorphone 0.5 Mg/0.5 Ml Syringe) 0.5 mg IVPUSH Q2H PRN PRN Reason: Pain (severe 7-10) Piperacillin Sod/Tazobactam (Sod 4.5 gm/ Sodium Chloride) 100 mls @ 25 mls/hr IV Q8H [facility] Last Admin: 01/27/21 09:40 Dose: 25 mls/hr Documented by: Insulin Human Lispro (Insulin Lispro 100 Unit/Ml 10 Ml Vial) 0 unit SUBCUT QIDACANDBED [facility]; Protocol Last Admin: 01/27/21 08:47 Dose: Not Given Documented by: Melatonin (Melatonin 3 Mg Tab) 6 mg PO BEDTIME [facility] Last Admin: 01/26/21 20:16 Dose: 6 mg Documented by: Metoprolol Succinate (Metoprolol Succinate 50 Mg Tab.Er) 75 mg PO DAILY [facility] Last Admin: 01/27/21 08:39 Dose: 75 mg Documented by: Metoprolol Tartrate (Metoprolol Tartrate 5 Mg/5 Ml Sdv) 5 mg IV Q4H PRN PRN Reason: Tachycardia Oxycodone HCl (Oxycodone 5 Mg Tab) 5 mg PO Q4H PRN PRN Reason: Pain (moderate 4-6) Potassium Chloride (Potassium Chloride 10 Meq Tab.Er) 10 meq PO DAILY [facility] Last Admin: 01/27/21 08:39 Dose: 10 meq Documented by: Quetiapine Fumarate (Quetiapine 25 Mg Tab) 6.25 mg PO BEDTIME [facility] Last Admin: 01/26/21 20:15 Dose: 6.25 mg Documented by: Sodium Chloride (Sodium Chloride 0.9% 10 Ml Syringe) 10 ml FLUSH ASDIRECTED PRN PRN Reason: Keep Vein Open Last Admin: 01/22/21 06:55 Dose: 10 ml Documented by: Discontinued Medications Diltiazem HCl (Diltiazem 120 Mg Cap.Cd) 120 mg PO ONETIME ONE Stop: 01/22/21 06:37 Last Admin: 01/22/21 06:55 Dose: 120 mg Documented by: Furosemide (Furosemide 40 Mg Tab) 40 mg PO ONETIME ONE Stop: 01/22/21 06:50 Last Admin: 01/22/21 06:56 Dose: 40 mg Documented by: Furosemide (Furosemide 40 Mg/4 Ml Vial) 40 mg IVPUSH NOW ONE Stop: 01/22/21 08:26 Last Admin: 01/22/21 08:35 Dose: 40 mg Documented by: Furosemide (Furosemide 20 Mg Tab) 40 mg PO BID [facility] Last Admin: 01/25/21 08:40 Dose: 40 mg Documented by: Diltiazem HCl 100 mg/ Sodium (Chloride) 100 mls @ 5 mls/hr IV TITRATE [facility]; Protocol Last Admin: 01/22/21 08:35 Dose: 5 mg/hr, 5 mls/hr Documented by: Ceftriaxone Sodium 2 gm/ (Sodium Chloride) 100 mls @ 200 mls/hr IV ONETIME ONE Stop: 01/22/21 09:04 Last Admin: 01/22/21 08:43 Dose: 200 mls/hr Documented by: Azithromycin 500 mg/ Sodium (Chloride) 250 mls @ 250 mls/hr IV ONETIME ONE Stop: 01/22/21 10:04 Last Admin: 01/22/21 09:28 Dose: 250 mls/hr Documented by: Furosemide 100 mg/ Sodium (Chloride) 100 mls @ 5 mls/hr IV CONTINUOUS [facility]; Protocol Azithromycin 500 mg/ Sodium (Chloride) 250 mls @ 250 mls/hr IV Q24H [facility] Last Admin: 01/22/21 13:55 Dose: Not Given Documented by: Ceftriaxone Sodium 2 gm/ (Sodium Chloride) 100 mls @ 200 mls/hr IV ONETIME ONE Stop: 01/22/21 12:46 Last Admin: 01/22/21 13:03 Dose: 200 mls/hr Documented by: Furosemide 100 mg/ Sodium (Chloride) 100 mls @ 5 mls/hr IV CONTINUOUS [facility]; Protocol Last Admin: 01/22/21 13:15 Dose: 5 ml/hr, 5 mls/hr Documented by: Azithromycin 500 mg/ Sodium (Chloride) 250 mls @ 250 mls/hr IV Q24H [facility] Ceftriaxone Sodium 1 gm/ (Sodium Chloride) 100 mls @ 200 mls/hr IV Q24H [facility] Magnesium Sulfate/Dextrose 1 (gm/ Premix) 100 mls @ 100 mls/hr IV ONETIME ONE Stop: 01/22/21 18:14 Last Admin: 01/22/21 17:25 Dose: 100 mls/hr Documented by: Piperacillin Sod/Tazobactam (Sod 4.5 gm/ Sodium Chloride) 100 mls @ 200 mls/hr IV ONETIME ONE Stop: 01/22/21 18:29 Last Admin: 01/22/21 17:25 Dose: 200 mls/hr Documented by: Lactated Ringer's (Ringers, Lactated) 250 mls @ 125 mls/hr IV ASDIRECTED [facility] Last Admin: 01/22/21 17:30 Dose: 125 mls/hr Documented by: Vancomycin HCl 1 gm/Vancomycin HCl 500 mg/ Sodium Chloride 500 mls @ 250 mls/hr IV ONETIME ONE Stop: 01/22/21 20:59 Last Admin: 01/22/21 18:33 Dose: 250 mls/hr Documented by: Vancomycin HCl 1 gm/Vancomycin HCl 250 mg/ Sodium Chloride 250 mls @ 157 mls/hr IV Q24H [facility] Last Admin: 01/23/21 18:50 Dose: 157 mls/hr Documented by: Lactated Ringer's (Ringers, Lactated) 500 mls @ 250 mls/hr IV ONETIME ONE Stop: 01/23/21 00:46 Last Admin: 01/22/21 23:00 Dose: 250 mls/hr Documented by: Lactated Ringer's (Ringers, Lactated) 1,000 mls @ 100 mls/hr IV ASDIRECTED [facility] Last Admin: 01/23/21 01:17 Dose: 100 mls/hr Documented by: Lactated Ringer's (Ringers, Lactated) 1,000 mls @ [facility] Last Admin: 01/23/21 08:13 Dose: 75 mls/hr Documented by: Meclizine HCl (Meclizine 12.5 Mg Tab) 12.5 mg PO ONETIME ONE Stop: 01/22/21 06:44 Last Admin: 01/22/21 06:55 Dose: 12.5 mg Documented by: Melatonin (Melatonin 3 Mg Tab) 3 mg PO BEDTIME PRN PRN Reason: Sleep Last Admin: 01/24/21 20:16 Dose: 3 mg Documented by: Metoprolol Succinate (Metoprolol Succinate 50 Mg Tab.Er) 75 mg PO ONETIME ONE Stop: 01/22/21 06:37 Last Admin: 01/22/21 06:54 Dose: 75 mg Documented by: Metoprolol Succinate (Metoprolol Succinate 25 Mg Tab.Er) 12.5 mg PO ONETIME ONE Stop: 01/22/21 19:08 Last Admin: 01/22/21 19:38 Dose: 12.5 mg Documented by: Metoprolol Succinate (Metoprolol Succinate 25 Mg Tab.Er) 25 mg PO ONETIME ONE Stop: 01/22/21 22:08 Last Admin: 01/22/21 22:21 Dose: 25 mg Documented by: Metoprolol Succinate (Metoprolol Succinate 25 Mg Tab.Er) 12.5 mg PO ONETIME ONE Stop: 01/23/21 22:25 Last Admin: 01/23/21 22:35 Dose: 12.5 mg Documented by: Metoprolol Succinate (Metoprolol Succinate 25 Mg Tab.Er) 25 mg PO DAILY [facility] Last Admin: 01/24/21 08:39 Dose: 25 mg Documented by: Metoprolol Succinate (Metoprolol Succinate 50 Mg Tab.Er) 50 mg PO ONETIME ONE Stop: 01/24/21 11:38 Last Admin: 01/24/21 11:43 Dose: 50 mg Documented by: Metoprolol Tartrate (Metoprolol Tartrate 5 Mg/5 Ml Sdv) 5 mg IV Q6H PRN PRN Reason: Tachycardia Last Admin: 01/22/21 17:06 Dose: 5 mg Documented by: Metoprolol Tartrate (Metoprolol Tartrate 25 Mg Tab) 12.5 mg PO Q12H [facility] Last Admin: 01/23/21 08:14 Dose: 12.5 mg Documented by: Metoprolol Tartrate (Metoprolol Tartrate 25 Mg Tab) 25 mg PO ONETIME ONE Stop: 01/23/21 16:03 Last Admin: 01/23/21 16:20 Dose: 25 mg Documented by: Metoprolol Tartrate (Metoprolol Tartrate 25 Mg Tab) 12.5 mg PO ONETIME ONE Stop: 01/23/21 18:23 Last Admin: 01/23/21 18:55 Dose: 12.5 mg Documented by: Olanzapine (Olanzapine 5 Mg Tab) 5 mg PO ONETIME ONE Stop: 01/25/21 02:39 Last Admin: 01/25/21 02:50 Dose: 5 mg Documented by: Potassium Chloride (Potassium Chloride 20 Meq Tab.Er) 40 meq PO ONETIME ONE Stop: 01/22/21 12:21 Last Admin: 01/22/21 13:17 Dose: 40 meq Documented by: Potassium Chloride (Potassium Chloride 20 Meq Tab.Er) 40 meq PO ONETIME ONE Stop: 01/22/21 16:01 Last Admin: 01/22/21 17:04 Dose: 40 meq Documented by: Potassium Chloride (Potassium Chloride 20 Meq Tab.Er) 40 meq PO ONETIME ONE Stop: 01/24/21 10:28 Last Admin: 01/24/21 10:45 Dose: 40 meq Documented by: Potassium Chloride (Potassium Chloride 20 Meq Tab.Er) 20 meq PO ONETIME ONE Stop: 01/26/21 10:44 Last Admin: 01/26/21 11:27 Dose: 20 meq Documented by: Vancomycin HCl (Pharmacy To Dose - Vancomycin) 0 dose .XX ASDIRECTED PRN PRN Reason: RX TO DOSE VANCOMYCIN - Exam General: Alert, No Acute Distress HEENT: EOMI, Mucous Membr. Moist/[place] Neck: Supple Lungs: Clear to Auscultation, Normal Respiratory Effort Cardiovascular: Irregular Rhythm, Tachycardia GI/Abdominal Exam: Soft, Non-Tender, No Distention Extremities: Normal Inspection Skin: Warm, Dry, Intact Neurological: No New Focal Deficit - Patient Data Lab Results Last 24 hrs: Laboratory Results - last 24 hr 01/26/21 01/26/21 01/27/21 Range/Units 16:43 20:20 08:45 POC Glucose 159 H 161 H 121 H (70-99) mg/dL 01/27/21 Range/Units 11:46 POC Glucose 110 H (70-99) mg/dL Result Diagrams: 01/26/21 05:12 01/26/21 05:12 Sepsis Event Note - Evaluation Sepsis Screening Result: Possible Sepsis Risk - Focused Exam Vital Signs: Vital Signs Temp Pulse Resp BP Pulse Ox 01/27/21 08:39 104 H 120/90 01/27/21 08:00 97.7 F 18 99 01/27/21 07:51 120/90 98 01/27/21 04:00 18 94 L - Problem List Review Problem List Initiated/Reviewed/Updated: Yes - My Orders Last 24 Hours: My Active Orders 01/27/21 12:29 BASIC METABOLIC PANEL,BMP [CHEM] Routine CBC W/O DIFF,HEMOGRAM [HEME] Routine 01/27/21 12:30 Metoprolol Succinate [Toprol XL] 25 mg PO ONETIME ONE 01/28/21 09:00 Metoprolol Succinate [Toprol XL] 100 mg PO DAILY - Assessment Assessment:: Assessment day of admit: 70-year-old male who presents with fatigue, cough productive of yellow-colored sputum x1 week, fever, chills and decreased appetite. Was found to have pneumonia on the left lower lobe and subsequently an atrial fib with RVR. History of heart failure with a proBNP of 20,453. Recently treated for pyelonep hritis with his last dose of antibiotic taken yesterday. He was treated in the emergency department with IV and p.o. Lasix. Chest x-ray subsequently revealed pneumonia of the left lower lobe. Blood cultures were collected and he was started on Rocephin and Zithromax IV. Patient subsequently admitted to ICU. He will be placed on a Lasix drip at 5 mL's per hour. Hopeful that A. fib and RVR will resolve with treatment of pneumonia and CHF. 01/23/2021: 70-year-old male admitted to the floor for A. fib with RVR and pneumonia. Has been receiving azithromycin and Rocephin however this was broadened to Zosyn and vancomycin after the patient was noted to have worsening tachycardia, fever, and elevated lactic acid. He had been receiving Lasix and was noted to have acute renal injury. He was placed on gentle hydration. Lasix was discontinued. We did restart his scheduled metoprolol however at a much lesser amount due to concerns over sepsis. As needed IV push metoprolol was also ordered. Labs are obtained with WBC of 15.43. Hemoglobin 13.1. Platelet 247,000. Neutrophils elevated at 83.6%. Sodium is 134. Potassium 4.0. Chloride 99. Carbon dioxide 20. Anion gap 19.0. BUN 44. Creatinine 1.6. GFR 43. Glucose 152. Lactic acid 1.2. Repeat lactic acid 2.0. Magnesium 2.4. Bilirubin 0.7. AST 129, ALT 149, alkaline phosphatase 68. CRP 28.8. Procalcitonin 0.81. We will continue current treatment plan and adjust rate control medications as needed. Unknown length of stay. Reviewed echocardiogram obtained on 12/24/2020: 1. Left ventricular ejection fraction, by visual estimation, is 25%. 2. Severely decreased left ventricular systolic function. 3. Moderately reduced right ventricular systolic function 4. Right ventricular size is mildly enlarged. 5. There is mild aortic valve sclerosis without stenosis. 6. Moderate to severe mitral valve regurgitation. 7. Moderate to severe tricuspid valve regurgitation. 8. The right ventricular systolic pressure is mild to moderately elevated at 46.4 mmHg. 9. The study was performed with the patient atrial fibrillation/flutter. 10. Large left pleural effusion. Due to echocardiogram be ing less than 1 month old we will not reorder echocardiogram. 01/24/2021: 70-year-old male admitted for pneumonia and A. fib with RVR. Patient noted to be septic but since has responded well. WBC continues to trend downward. His home p.o. rate control medications were resumed today and we will monitor this. He reports dyspnea with significant exertion but otherwise states his breathing is quite good. Trace pulmonary edema. Discussed with patient and family at bedside plan of care. Report given and discussion with patient's daughter at patient's request. Labs today show WBC of 11.84. Hemoglobin 12.8. Platelet 252,000. Neutrophils are 79.4%. Sodium 139. Potassium 3.4. This is supplemented with p.o. potassium. Anion gap 16.4. BUN 41. Creatinine 1.3. G FR 55. Glucose 116. Lactic acid last night was 1.6. Calcium 8.7. Magnesium 2.3. Total bilirubin 0.6. AST is 73, ALT 141. Alkaline phosphatase is 66. CRP is down to 2.0. Protein 7.0. Albumin 2.5. We will continue current treatment plan and resume some home medications as as mentioned prior. Hopeful for discharge in 1 to 2 days pending continued stability and improvement. Per family patient does have cardiology appointment scheduled already for this coming Thursday. 01/25/2021: This is a 70-year-old male admitted for pneumonia and A. fib with RVR. He responded well to initial treatment. WBC remains mildly elevated at 11.78. Hemoglobin 13.1. Platelet 289,000. Neutrophils 77.5. Sodium is 141. Potassium 3.6. Chloride 106. Carbon oxide 23. Anion gap 15.8. BUN is 39. Creatinine 1.2. GFR greater than 60. Glucose is 124. Lactic acid 1.6. Calcium 8.9. Magnesium 2.3. Total bilirubin 0.6. AST is 85, ALT 161, alkaline phosphatase 75. Ammonia is 11. CRP is 15.1. proBNP is 9786. Protein 7.4. Albumin 2.7. UA is negative however trace protein, 2+ occult blood, and 10-20 urine RBCs are noted. Since admission patient has been noted to have some confusion and hallucinations at nighttime. Today this has continued into today. Nursing notes the patient slept minimally last night. Discussed with Dr. Hamilton, attending hospitalist and we have ordered a head CT (which showed senescent change but nothing acute), 2 view chest x-ray (which showed pleural effusions suggesting CHF and degenerative change in the spine but nothing acute), [id number] glucose (123), Lactic acid (1.6), Ammonia (11), UA (negative for infection) and abdominal ultrasound (pancreas not well seen but otherwise unremarkable). We we will schedule 6 mg melatonin at bedtime. We will initiate let me sleep protocol. Downgraded from ICU to [facility] with telemetry today. 01/26/2021 Extensive workup yesterday to evaluate for encephalopathy; symptoms likely secondary to ICU acquired delirium. Will continue to monitor symptoms. appears to sleep better with initiation of seroquel and increased melatonin dosing. Will continue zosyn 01/27 increase metoprolol XL 75mg to 100 mg increase seroquel to 12.5 mg labs pending still continues to have sundowning and delirium delirium precautions continue zosyn - Plan Plan:: Pneumonia Leukocytosis Elevated lactic acid level, Resolved Sepsis, Resolved -Discontinued Rocephin and azithromycin -Discontinue vancomycin -Continue Zosyn Q8Hr -Blood cultures negative thus far -IS/Acapella -RT consultation -Follow daily labs including CBC and CRP -Sputum culture obtained Atrial fibrillation with RVR, RVR resolved CHF (congestive heart failure) Chronic anticoagulation Elevated brain natriuretic peptide (BNP) level, improved -Continue Eliquis -Heart rate is currently in the 90-110's -Strict I&Os -Daily weight -Low sodium diet -1.5L fluid restriction -RUFINO hose for bilateral lower extremity edema. -Resume home rate control meds -PRN IVP metoprolol for sustained HR >120 -Caution with IV fluids -Telemetry -Re-check BNP Type 2 diabetes mellitus -Hold metformin -Accuchecks QID AC and HS -Low dose sliding scale insulin -Rebar Fabricator to consult Renal insufficiency Hyponatremia Acute renal injury -Monitor renal function daily -Avoid nephrotoxic drugs -Michael hydration -Caution due to CHF with very low EF Hypokalemia -Monitor -Supplement potassium as needed History of pyelonephritis -No acute concerns Acute delirium -5mg Zyprexa given last night -Discussed with Dr. Hamilton, attending hospitalist -Check ammonia level (WNL) -Check lactic acid level (WNL) -Noncontrast head CT (senescent change but no acute abnormality) -Two-view chest x-ray (increasing pleural effusion suspicious for CHF, diffuse degenerative change within the spine.) -Abdominal ultrasound - (Pancreas not well see but otherwise unremarkable) -Obtain US (No signs of infection) -POC glucose check (WNL) -Start seroquel 6.25mg scheduled at bedtime -Let me sleep protocol -Start 6mg melatonin scheduled at bedtime Primary care provider: Dr. Robles Scrap Kettle Tender[facility] prophylaxis: Eliquis GI: Pepcid Code Status: DNR/DNI Disposition: Case management and social human services assistants for discharge planning. Patient will likely be here for 3 to 4 days due to diuresis and management of pneumonia, atrial fib, and CHF.
[2021-01-27] MEDS: Melatonin 3 MG Tab PO SCH (20:02)
[2021-01-27] MEDS ORDERED: QUEtiapine 25 MG Tab PO SCH (21:00)
[2021-01-28] MEDS: Piperacillin/Tazobactam 4.5 GM in Sodium Chloride 0.9% 100 ML IV SCH ×3 (02:28→10:20)
[2021-01-28] MEDS: Potassium Chloride 10 MEQ Tab.ER PO SCH (08:38)
[2021-01-28] MEDS: Diltiazem 180 MG Cap.CD PO SCH (08:38)
[2021-01-28] MEDS: Apixaban 5 MG Tab PO SCH (08:38)
[2021-01-28] MEDS: Insulin Lispro 100 UNIT/ML 10 ML Vial SUBCUT SCH (08:39)
[2021-01-28] MEDS ORDERED: Metoprolol Succinate 50 MG Tab.ER PO SCH (09:00)
--- NOTE | 2021-01-28 09:30 | PCM.DCSUM1 ---
<Adrian Damico - Last Filed: 01/28/21 14:56> Discharge Summary - Hospital Course HPI Initial Comments: 70-year-old male who presented to the ER with complaints of vertigo type dizziness that started last evening. Patient reported that it was worse when he was lying down flat. States that he spent most of the night trying to sleep in a semi-Fowlers position in the recliner. Also reports that he has had a persistent productive cough for the past week or so. He has had intermittent fevers for the past week ranging from 99-101.9. His reports that most often the fevers were noted in the evening. He does have a significant cardiac history and has had A. fib for about 6 to 8 weeks. He was seen by his retail coverage merchandiser yesterday at [facility], Dr. Garcia, and was instructed to decrease his diltiazem from 360 LA daily to 120 twice daily and increase his Toprol-XL from 50 twice daily to 75 twice daily. He tells me labs were completed yesterday with his retail coverage merchandiser however from what I can establish only a BMP was collected. I am not able to obtain the results of this. No chest x- ray was completed yesterday. He states he has been more short of breath and has had decreased appetite over the past couple of weeks. His daughter states that last night she also noticed some mild confusion. Complains of some epigastric discomfort that started last evening however he reports he has no history of GERD or reflux type symptoms. He states he does take Lasix daily and does no sophia that once he takes it he does diurese somewhat. He does note that he has issues with swelling to his lower extremities. He states it progressively worsens throughout the day however when he wakes up in the morning it is significantly decreased. As mentioned earlier he has had a decrease in his appetite. He is a type II diabetic he states he takes Metformin daily. Checks his blood sugars weekly and states they have been ranging from 110-126. Patient was hospitalized at this facility in December. An echocardiogram was obtained at that time and it showed an ejection fraction of 25%. Patient also notifies me that he recently was treated for pyelonephritis and took his last dose of antibiotic yesterday. He does not recall the name of the antibiotic he was taking. He denies any urinary symptoms and denies costophrenic angle tenderness. The patient does take Eliquis twice daily. While in the emergency department, labs reveal a WBC of 15.89, hemoglobin 13.8, hematocrit 41.5, platelet count 223,000, neutrophil percentage 87.9, sodium was 131, potassium 3.3, chloride 93, carbon dioxide 25, anion gap 16.3, BUN 40, creatinine 1.3, GFR 55, glucose 155, AST 75, ALT 110, alk phos 81, troponin less than 0.017, proBNP 20,453. The patient was Covid negative, lactic acid 1.4. The patient was found to be in atrial fib with RVR with rate at 126. He was subsequently started on a Cardizem drip at that time. He was given 40 mg of oral Lasix as well as 40 mg of IV Lasix. Nursing staff he only diuresed 200 mL from that. He was also given metoprolol supinate [address] His head CT showed senescent change. Nothing acute was appreciated on the noncontrast CT study of the brain. Chest x-ray showed increased lung markings which appears stable. Slightly increased density within the left lung base most likely due to atelectasis unless the patient has infectious symptoms indicate minimal areas of pneumonia. Bony findings as noted above which are chronic. Blood cultures were ordered on the patient he was given Rocephin 2 g IV. The ER physicians felt the patient needed to be admitted and they consulted the hospitalist, Dr. Hamilton. He requested the patient also receive Zithromax and discontinue the Cardizem drip as the pneumonia is likely the cause of the RVR. Diagnosis: Stroke: No - Discharge Data Discharge Date: 01/28/21 (Admit date:01/22/2021) Discharge Disposition: Home, Self-Care 01 Condition: Good - Referral to Home Health Primary Care Physician: Quita Robles MD - Discharge Diagnosis/Problem(s) (1) Hypokalemia SNOMED Code(s): 81911267 ICD Code: E87.6 - HYPOKALEMIA Status: Resolved Priority: High (2) Pneumonia SNOMED Code(s): 275712612 ICD Code: J18.9 - PNEUMONIA, UNSPECIFIED ORGANISM Status: Acute Priority: High Qualifiers: Pneumonia type: due to unspecified organism Laterality: left Lung location: lower lobe of lung Qualified Code(s): J18.9 - Pneumonia, unspecified organism (3) Atrial fibrillation with RVR SNOMED Code(s): 786322933878640 ICD Code: I48.91 - UNSPECIFIED ATRIAL FIBRILLATION Status: Chronic Priority: High (4) CHF (congestive heart failure) SNOMED Code(s): 80578355 ICD Code: I50.9 - HEART FAILURE, UNSPECIFIED Status: Chronic Priority: High Qualifiers: Heart failure type: unspecified Heart failure chronicity: acute on chronic Qualified Code(s): I50.9 - Heart failure, unspecified (5) Chronic anticoagulation SNOMED Code(s): 445676909 ICD Code: Z79.01 - CORRECTION (CURRENT) USE OF ANTICOAGULANTS Status: Chronic Priority: Medium (6) Type 2 diabetes mellitus SNOMED Code(s): 12877046 ICD Code: E11.9 - TYPE 2 DIABETES MELLITUS WITHOUT COMPLICATIONS Status: Chronic Priority: High Qualifiers: Diabetes mellitus terminal superintendent insulin use: without residential use Diabetes mellitus complication status: without complication Qualified Code(s): E11.9 - Type 2 diabetes mellitus without complications (7) History of pyelonephritis SNOMED Code(s): 164428991 ICD Code: Z87.448 - PERSONAL HISTORY OF OTHER DISEASES OF URINARY SYSTEM Status: Acute Priority: Medium (8) Renal insufficiency SNOMED Code(s): 161229188, 685554805 ICD Code: N28.9 - DISORDER OF KIDNEY AND URETER, UNSPECIFIED Status: Resolved Priority: Medium (9) Sepsis SNOMED Code(s): 86856275 ICD Code: A41.9 - SEPSIS, UNSPECIFIED ORGANISM Status: Resolved Priority: High Qualifiers: Sepsis type: sepsis due to unspecified organism Sepsis acute organ dysfunction status: with acute organ dysfunction Severe sepsis acute organ dysfunction type: acute renal failure Acute renal failure type: unspecified Severe sepsis shock status: without septic shock Qualified Code(s): A41.9 - Sepsis, unspecified organism; R65.20 - Severe sepsis without septic shock; N17.9 - Acute kidney failure, unspecified (10) Elevated lactic acid level SNOMED Code(s): 1616663 ICD Code: R79.89 - OTHER SPECIFIED ABNORMAL FINDINGS OF BLOOD CHEMISTRY Status: Resolved Priority: High (11) Hyponatremia SNOMED Code(s): 64412487 ICD Code: E87.1 - HYPO-OSMOLALITY AND HYPONATREMIA Status: Resolved Priority: Medium (12) Elevated brain natriuretic peptide (BNP) level SNOMED Code(s): 668171958, 041598480 ICD Code: R79.89 - OTHER SPECIFIED ABNORMAL FINDINGS OF BLOOD CHEMISTRY Status: Acute Priority: High (13) Leukocytosis SNOMED Code(s): 130011616, 610476496 ICD Code: D72.829 - ELEVATED WHITE BLOOD CELL COUNT, UNSPECIFIED Status: Acute Priority: High Qualifiers: Leukocytosis type: unspecified Qualified Code(s): D72.829 - Elevated white blood cell count, unspecified (14) Acute renal injury SNOMED Code(s): 68921570, 66981408 ICD Code: N17.9 - ACUTE KIDNEY FAILURE, UNSPECIFIED Status: Resolved Priority: High (15) Acute delirium SNOMED Code(s): 3180888, 7390531 ICD Code: R41.0 - DISORIENTATION, UNSPECIFIED Status: Resolved Priority: High (16) Subclinical hypothyroidism SNOMED Code(s): 06356735 ICD Code: E03.8 - OTHER SPECIFIED HYPOTHYROIDISM Status: Chronic Priority: Low - Patient Summary/Data Consults: Consultations 01/22/21 12:03 Consult to Case Management/Buyer Renter [CONS] Routine Consult to Furniture Associate [CONS] Routine 01/23/21 10:38 OT Evaluation and Treatment [CONS] Routine PT Evaluation and Treatment [CONS] Routine 01/23/21 11:08 Consult to Respiratory Therapy [Respiratory Care Assess and Treatment] [CONS] Routine Labs Pending at D/C: None Recommended Follow-up Testing/Procedures: Follow-up with primary care provider within 5 to 7 days of discharge, sooner if needed. -Patient's metoprolol dosing was increased to 100 mg daily -Patient was started on Seroquel 12.5 mg at bedtime due to sundowning and confusion. -Patient was treated for sepsis with suspected pneumonia origin. He will be discharged on 2 more days of a 875/125 mg Augmentin -Recommend recheck CBC, CMP, and magnesium in follow-up. Up with cardiology as scheduled on 01/28/2021 Follow-up with oncology/hematology as before. Hospital Course: This is a 70-year-old male who presented to ED on 01/22/2021 with fatigue, cough, sputum, fever, chills, and decreased appetite. He was noted to have a soft possible pneumonia in his left lower lobe and was also found to be in A. fib with RVR. He does have a history of heart failure and his proBNP was noted to be 20,453. Blood cultures were obtained he was started on Rocephin and azithromycin. He was admitted to the ICU and placed on a Lasix drip. There were thoughts that the patient's A. fib with RVR would resolve after treatment of his pneumonia and CHF. After admission patient was noted to have worsening tachycardia, fever, and an elevated lactic acid. He was deemed septic and was started on Zosyn and vancomycin. Lasix drip was discontinued as patient was displaying signs of acute renal injury. He was given IV fluids and repeat labs showed improvement. Reviewed echocardiogram obtained on 12/24/2020: 1. Left ventricular ejection fraction, by visual estimation, is 25%. 2. Severely decreased left ventricular systolic function. 3. Moderately reduced right ventricular systolic function 4. Right ventricular size is mildly enlarged. 5. There is mild aortic valve sclerosis without stenosis. 6. Moderate to severe mitral valve regurgitation. 7. Moderate to severe tricuspid valve regurgitation. 8. The right ventricular systolic pressure is mild to moderately elevated at 46.4 mmHg. 9. The study was performed with the patient atrial fibrillation/flutter. 10. Large left pleural effusion. Due to echocardiogram being less than 1 month old repeat echocardiogram was not reordered. Home Cardizem dosing was restarted and patient was restarted on p.o. metoprolol after sepsis appeared to resolve. Suspect pneumonia origin although no decent sputum culture was able to be obtained. Patient was noted to sleep throughout the day and be up quite a bit at night. Family was quite concerned. After discussion with Dr. Hamilton, attending hospitalist head CT (which showed senescent change but nothing acute), 2 view chest x-ray (which showed pleural effusions suggesting CHF and degenerative change in the spine but nothing acute), [id number] glucose (123), Lactic acid (1.6), Ammonia (11), UA (negative for infection) and abdominal ultrasound (pancreas not well seen but otherwise unremarkable) were all ordered. Started on let me sleep protocol, 6 mg nightly melatonin, and Seroquel which was increase in dosing up to 12.5 mg nightly. It is felt this is likely secondary to sundowning. Family was quite concerned and believe that it may have been due to patient's prior medications. It is felt this is unlikely. His confusion did improve prior to discharge. Case discussed with Dr. Roe, attending hospitalist who agrees patient is appropriate for discharge. Patient does have a cardiology appointment for later in the day already scheduled. Recommend follow-up with primary care provider within 5 to 7 days of discharge, sooner if needed. Patient was discharged on new increased dosing of 100 mg daily metoprolol succinate. Prescription for Seroquel 12.5 mg at bedtime was sent. Patient was also sent prescription for 875/125 mg Augmentin with his first dose tonight, 01/28/2021. He should continue this for 2 more days. Recommend repeat CBC, CMP, and magnesium at primary care follow-up. All other home medications were continued. Patient discharged home today. Family was heavily involved in patient's care. - Patient Instructions Diet: Heart Healthy Diet, Low Sodium, Fluid Restriction Fluid Restriction: 2000 mL Activity: As Tolerated Driving: Do Not Drive Notify Provider of: Fever, Increased Pain, Nausea and/or Vomiting Other/Special Instructions: Follow-up with primary care provider within 5 to 7 days of discharge sooner if needed. Follow-up with cardiology today as scheduled. Resume home medications as directed. Your metoprolol dosing was increased. Please be sure to take this new dosing. You were prescribed an oral antibiotic for your sepsis with suspected pneumonia origin. You should take your first dose tonight, 01-28-2021 and take it twice a daily until gone. Should symptoms return or worsen contact primary care provider or return the emergency room. - Discharge Plan *PRESCRIPTION DRUG MONITORING PROGRAM REVIEWED*: No *COPY OF PRESCRIPTION DRUG MONITORING REPORT IN PATIENT REJI: No Prescriptions/Med Rec: Amoxicillin/Potassium Clav [Augmentin 875-125 Tablet] 1 each PO BID #4 tablet Metoprolol Succinate 100 mg PO DAILY #20 tab.er.24h QUEtiapine [SEROquel] 12.5 mg PO BEDTIME #10 tablet Home Medications: Home Meds Apixaban [Eliquis] 5 mg PO BID #60 tablet 12/24/20 [Rx] dilTIAZem HCL [Cardizem Cd] 360 mg PO DAILY 30 Days cap.er.24h 12/24/20 [Rx] metFORMIN [Glucophage] 500 mg PO BIDMEALS #60 tab 12/24/20 [Rx] Furosemide 40 mg PO BID 01/22/21 [History] Multivitamin 1 tab PO DAILY 01/22/21 [History] Potassium Chloride 10 meq PO DAILY 01/22/21 [History] bisacodyL [Bisacodyl] 5 mg PO BEDTIME 01/22/21 [History] Amoxicillin/Potassium Clav [Augmentin 875-125 Tablet] 1 each PO BID #4 tablet 01/28/21 [Rx] Metoprolol Succinate 100 mg PO DAILY #20 tab.er.24h 01/28/21 [Rx] QUEtiapine [SEROquel] 12.5 mg PO BEDTIME #10 tablet 01/28/21 [Rx] Oxygen Therapy Mode: Room Air Patient Handouts: Heart Failure, Self Care, [id number], Living With Heart Failure, Community-Acquired Pneumonia, Adult, [id number], Sepsis, Self Care, Adult Forms: ED Department Discharge Referrals: Quita Robles MD [Primary Care Provider] - 02/01/21 9:10 am (Please arrive at 9:10 for check in) Rosanna Retana MD [Ordering Only Provider] - 01/28/21 1:40 pm (01/28/21 appt is in [place] you also have labs at 1:00 before appt. 02/06/21 appt 2 week follow up in [facility] with Dr. Rosanna Retana 1p.m for labs and 1:40 Central time) Tyler Garza MD [Ordering Only Provider] - (Follow up as needed) - Discharge Summary/Plan Comment DC Time >30 min.: Yes Total # of Minutes for Discharge Time: 45 - General Info Date of Service: 01/28/21 Admission Dx/Problem (Free Text: Admission Diagnosis/Problem Admission Diagnosis/Problem Pneumonia Functional Status: Reports: Pain Controlled, Tolerating Diet, Ambulating, Urinating. Denies: New Symptoms - Review of Systems General: Reports: No Symptoms. Denies: Fever, Weakness, Fatigue, Malaise, Chills HEENT: Reports: No Symptoms. Denies: Glasses, Visual Changes Pulmonary: Reports: No Symptoms. Denies: Shortness of Breath, Cough, Sputum, Wheezing Cardiovascular: Reports: No Symptoms. Denies: Chest Pain, Palpitations, Dyspnea on Exertion, Edema Gastrointestinal: Reports: No Symptoms. Denies: Abdominal Pain, Constipation, Diarrhea, Nausea, Vomiting Genitourinary: Reports: No Symptoms. Denies: Pain Musculoskeletal: Reports: No Symptoms Skin: Reports: No Symptoms. Denies: Cyanosis Neurological: Reports: Confusion (confusion and delirium noted overnight. ). Denies: Dizziness, Headache, Numbness, Pre-Existing Deficit, Seizure, Syncope, Tingling, Difficulty Walking, Weakness, Gait Disturbance Psychiatric: Reports: No Symptoms - Patient Data Vitals - Most Recent: Last Vital Signs Temp 97.0 F 01/28/21 07:53 Pulse 101 H 01/28/21 08:38 Resp 18 01/28/21 07:53 BP 129/91 H 01/28/21 08:38 Pulse Ox 99 01/28/21 07:53 Weight - Most Recent: 212 lb 14.4 oz I&O - Last 24 hours: Intake & Output 01/27/21 01/28/21 01/28/21 22:59 06:59 14:59 Intake Total 400 500 Output Total 800 650 Balance -400 -150 Lab Results - Last 24 hrs: Laboratory Results - last 24 hr 01/27/21 01/27/21 01/27/21 Range/Units 11:46 12:46 12:46 WBC 12.02 H (4.23-9.07) K/mm3 RBC 4.42 L (4.63-6.08) M/mm3 Hgb 13.1 L (13.7-17.5) gm/dl Hct 41.7 (40.1-51.0) % MCV 94.3 H (79.0-92.2) fl MCH 29.6 (25.7-32.2) pg MCHC 31.4 L (32.2-35.5) g/dl RDW Std Deviation 51.4 H (35.1-43.9) fL Plt Count 331 (163-337) K/mm3 MPV 10.5 (9.4-12.3) fl Sodium 148 H (136-145) mEq/L Potassium 4.0 (3.5-5.1) mEq/L Chloride 112 H (98-107) mEq/L Carbon Dioxide 25 (21-32) mEq/L Anion Gap 15.0 (5-15) BUN 27 H (7-18) mg/dL Creatinine 1.2 (0.7-1.3) mg/dL Est Cr Clr Drug Dosing 56.21 mL/min Estimated GFR (MDRD) > 60 (>60) mL/min BUN/Creatinine Ratio 22.5 H (14-18) Glucose 131 H (70-99) mg/dL POC Glucose 110 H (70-99) mg/dL Calcium 9.1 (8.5-10.1) mg/dL Free T4 (0.76-1.46) ng/dL TSH 3rd Generation (0.358-3.74) uIU/mL 01/27/21 01/27/21 01/28/21 Range/Units 17:23 20:47 05:02 WBC 10.70 H (4.23-9.07) K/mm3 RBC 4.35 L (4.63-6.08) M/mm3 Hgb 12.8 L (13.7-17.5) gm/dl Hct 41.2 (40.1-51.0) % MCV 94.7 H (79.0-92.2) fl MCH 29.4 (25.7-32.2) pg MCHC 31.1 L (32.2-35.5) g/dl RDW Std Deviation 52.2 H (35.1-43.9) fL Plt Count 314 (163-337) K/mm3 MPV 10.7 (9.4-12.3) fl Sodium (136-145) mEq/L Potassium (3.5-5.1) mEq/L Chloride (98-107) mEq/L Carbon Dioxide (21-32) mEq/L Anion Gap (5-15) BUN (7-18) mg/dL Creatinine (0.7-1.3) mg/dL Est Cr Clr Drug Dosing mL/min Estimated GFR (MDRD) (>60) mL/min BUN/Creatinine Ratio (14-18) Glucose (70-99) mg/dL POC Glucose 120 H 117 H (70-99) mg/dL Calcium (8.5-10.1) mg/dL Free T4 (0.76-1.46) ng/dL TSH 3rd Generation (0.358-3.74) uIU/mL 01/28/21 01/28/21 Range/Units 05:02 08:10 WBC (4.23-9.07) K/mm3 RBC (4.63-6.08) M/mm3 Hgb (13.7-17.5) gm/dl Hct (40.1-51.0) % MCV (79.0-92.2) fl MCH (25.7-32.2) pg MCHC (32.2-35.5) g/dl RDW Std Deviation (35.1-43.9) fL Plt Count (163-337) K/mm3 MPV (9.4-12.3) fl Sodium (136-145) mEq/L Potassium (3.5-5.1) mEq/L Chloride (98-107) mEq/L Carbon Dioxide (21-32) mEq/L Anion Gap (5-15) BUN (7-18) mg/dL Creatinine (0.7-1.3) mg/dL Est Cr Clr Drug Dosing mL/min Estimated GFR (MDRD) (>60) mL/min BUN/Creatinine Ratio (14-18) Glucose (70-99) mg/dL POC Glucose 86 (70-99) mg/dL Calcium (8.5-10.1) mg/dL Free T4 1.05 (0.76-1.46) ng/dL TSH 3rd Generation 5.562 H (0.358-3.74) uIU/mL [facility]BO Results - Last 24 hrs: Microbiology 01/22/21 09:26 Blood Culture - Final Blood - Venous - Lab Draw 01/22/21 09:10 Blood Culture - Final Blood - Venous - Lab Draw Med Orders - Current: Current Medications Acetaminophen (Acetaminophen 325 Mg Tab) 650 mg PO Q4H PRN PRN Reason: Pain (Mild 1-3)/fever Apixaban (Apixaban 5 Mg Tab) 5 mg PO BID [facility] Last Admin: 01/28/21 08:38 Dose: 5 mg Documented by: Diltiazem HCl (Diltiazem 180 Mg Cap.Cd) 360 mg PO DAILY [facility] Last Admin: 01/28/21 08:38 Dose: 360 mg Documented by: Docusate Sodium (Docusate Sodium 100 Mg Cap) 100 mg PO DAILY PRN PRN Reason: Constipation Last Admin: 01/22/21 18:00 Dose: 100 mg Documented by: Hydromorphone HCl (Hydromorphone 0.5 Mg/0.5 Ml Syringe) 0.5 mg IVPUSH Q2H PRN PRN Reason: Pain (severe 7-10) Piperacillin Sod/Tazobactam (Sod 4.5 gm/ Sodium Chloride) 100 mls @ 25 mls/hr IV Q8H [facility] Last Admin: 01/28/21 08:39 Dose: 25 mls/hr Documented by: Insulin Human Lispro (Insulin Lispro 100 Unit/Ml 10 Ml Vial) 0 unit SUBCUT QIDACANDBED [facility]; Protocol Last Admin: 01/28/21 08:39 Dose: Not Given Documented by: Melatonin (Melatonin 3 Mg Tab) 6 mg PO BEDTIME [facility] Last Admin: 01/27/21 20:02 Dose: 6 mg Documented by: Metoprolol Succinate (Metoprolol Succinate 50 Mg Tab.Er) 100 mg PO DAILY [facility] Last Admin: 01/28/21 08:38 Dose: 100 mg Documented by: Metoprolol Tartrate (Metoprolol Tartrate 5 Mg/5 Ml Sdv) 5 mg IV Q4H PRN PRN Reason: Tachycardia Oxycodone HCl (Oxycodone 5 Mg Tab) 5 mg PO Q4H PRN PRN Reason: Pain (moderate 4-6) Potassium Chloride (Potassium Chloride 10 Meq Tab.Er) 10 meq PO DAILY [facility] Last Admin: 01/28/21 08:38 Dose: 10 meq Documented by: Quetiapine Fumarate (Quetiapine 25 Mg Tab) 12.5 mg PO BEDTIME [facility] Last Admin: 01/27/21 20:03 Dose: 12.5 mg Documented by: Sodium Chloride (Sodium Chloride 0.9% 10 Ml Syringe) 10 ml FLUSH ASDIRECTED PRN PRN Reason: Keep Vein Open Last Admin: 01/22/21 06:55 Dose: 10 ml Documented by: Discontinued Medications Diltiazem HCl (Diltiazem 120 Mg Cap.Cd) 120 mg PO ONETIME ONE Stop: 01/22/21 06:37 Last Admin: 01/22/21 06:55 Dose: 120 mg Documented by: Famotidine (Famotidine 20 Mg Tab) 20 mg PO DAILY [facility] Last Admin: 01/27/21 08:39 Dose: 20 mg Documented by: Furosemide (Furosemide 40 Mg Tab) 40 mg PO ONETIME ONE Stop: 01/22/21 06:50 Last Admin: 01/22/21 06:56 Dose: 40 mg Documented by: Furosemide (Furosemide 40 Mg/4 Ml Vial) 40 mg IVPUSH NOW ONE Stop: 01/22/21 08:26 Last Admin: 01/22/21 08:35 Dose: 40 mg Documented by: Furosemide (Furosemide 20 Mg Tab) 40 mg PO BID [facility] Last Admin: 01/25/21 08:40 Dose: 40 mg Documented by: Diltiazem HCl 100 mg/ Sodium (Chloride) 100 mls @ 5 mls/hr IV TITRATE [facility]; Protocol Last Admin: 01/22/21 08:35 Dose: 5 mg/hr, 5 mls/hr Documented by: Ceftriaxone Sodium 2 gm/ (Sodium Chloride) 100 mls @ 200 mls/hr IV ONETIME ONE Stop: 01/22/21 09:04 Last Admin: 01/22/21 08:43 Dose: 200 mls/hr Documented by: Azithromycin 500 mg/ Sodium (Chloride) 250 mls @ 250 mls/hr IV ONETIME ONE Stop: 01/22/21 10:04 Last Admin: 01/22/21 09:28 Dose: 250 mls/hr Documented by: Furosemide 100 mg/ Sodium (Chloride) 100 mls @ 5 mls/hr IV CONTINUOUS [facility]; Protocol Azithromycin 500 mg/ Sodium (Chloride) 250 mls @ 250 mls/hr IV Q24H [facility] Last Admin: 01/22/21 13:55 Dose: Not Given Documented by: Ceftriaxone Sodium 2 gm/ (Sodium Chloride) 100 mls @ 200 mls/hr IV ONETIME ONE Stop: 01/22/21 12:46 Last Admin: 01/22/21 13:03 Dose: 200 mls/hr Documented by: Furosemide 100 mg/ Sodium (Chloride) 100 mls @ 5 mls/hr IV CONTINUOUS [facility]; Protocol Last Admin: 01/22/21 13:15 Dose: 5 ml/hr, 5 mls/hr Documented by: Azithromycin 500 mg/ Sodium (Chloride) 250 mls @ 250 mls/hr IV Q24H [facility] Ceftriaxone Sodium 1 gm/ (Sodium Chloride) 100 mls @ 200 mls/hr IV Q24H [facility] Magnesium Sulfate/Dextrose 1 (gm/ Premix) 100 mls @ 100 mls/hr IV ONETIME ONE Stop: 01/22/21 18:14 Last Admin: 01/22/21 17:25 Dose: 100 mls/hr Documented by: Piperacillin Sod/Tazobactam (Sod 4.5 gm/ Sodium Chloride) 100 mls @ 200 mls/hr IV ONETIME ONE Stop: 01/22/21 18:29 Last Admin: 01/22/21 17:25 Dose: 200 mls/hr Documented by: Lactated Ringer's (Ringers, Lactated) 250 mls @ 125 mls/hr IV [facility] Last Admin: 01/22/21 17:30 Dose: 125 mls/hr Documented by: Vancomycin HCl 1 gm/Vancomycin HCl 500 mg/ Sodium Chloride 500 mls @ 250 mls/hr IV ONETIME ONE Stop: 01/22/21 20:59 Last Admin: 01/22/21 18:33 Dose: 250 mls/hr Documented by: Vancomycin HCl 1 gm/Vancomycin HCl 250 mg/ Sodium Chloride 250 mls @ 157 mls/hr IV Q24H [facility] Last Admin: 01/23/21 18:50 Dose: 157 mls/hr Documented by: Lactated Ringer's (Ringers, Lactated) 500 mls @ 250 mls/hr IV ONETIME ONE Stop: 01/23/21 00:46 Last Admin: 01/22/21 23:00 Dose: 250 mls/hr Documented by: Lactated Ringer's (Ringers, Lactated) 1,000 mls @ 100 [facility] Last Admin: 01/23/21 01:17 Dose: 100 mls/hr Documented by: Lactated Ringer's (Ringers, Lactated) 1,000 mls @ 75 mls[facility]hr [facility] Last Admin: 01/23/21 08:13 Dose: 75 mls/hr Documented by: Meclizine HCl (Meclizine 12.5 Mg Tab) 12.5 mg PO ONETIME ONE Stop: 01/22/21 06:44 Last Admin: 01/22/21 06:55 Dose: 12.5 mg Documented by: Melatonin (Melatonin 3 Mg Tab) 3 mg PO BEDTIME PRN PRN Reason: Sleep Last Admin: 01/24/21 20:16 Dose: 3 mg Documented by: Metoprolol Succinate (Metoprolol Succinate 50 Mg Tab.Er) 75 mg PO ONETIME ONE Stop: 01/22/21 06:37 Last Admin: 01/22/21 06:54 Dose: 75 mg Documented by: Metoprolol Succinate (Metoprolol Succinate 25 Mg Tab.Er) 12.5 mg PO ONETIME ONE Stop: 01/22/21 19:08 Last Admin: 01/22/21 19:38 Dose: 12.5 mg Documented by: Metoprolol Succinate (Metoprolol Succinate 25 Mg Tab.Er) 25 mg PO ONETIME ONE Stop: 01/22/21 22:08 Last Admin: 01/22/21 22:21 Dose: 25 mg Documented by: Metoprolol Succinate (Metoprolol Succinate 25 Mg Tab.Er) 12.5 mg PO ONETIME ONE Stop: 01/23/21 22:25 Last Admin: 01/23/21 22:35 Dose: 12.5 mg Documented by: Metoprolol Succinate (Metoprolol Succinate 25 Mg Tab.Er) 25 mg PO DAILY [facility] Last Admin: 01/24/21 08:39 Dose: 25 mg Documented by: Metoprolol Succinate (Metoprolol Succinate 50 Mg Tab.Er) 50 mg PO ONETIME ONE Stop: 01/24/21 11:38 Last Admin: 01/24/21 11:43 Dose: 50 mg Documented by: Metoprolol Succinate (Metoprolol Succinate 50 Mg Tab.Er) 75 mg PO DAILY [facility] Last Admin: 01/27/21 08:39 Dose: 75 mg Documented by: Metoprolol Succinate (Metoprolol Succinate 25 Mg Tab.Er) 25 mg PO ONETIME ONE Stop: 01/27/21 12:31 Last Admin: 01/27/21 13:21 Dose: 25 mg Documented by: Metoprolol Tartrate (Metoprolol Tartrate 5 Mg/5 Ml Sdv) 5 mg IV Q6H PRN PRN Reason: Tachycardia Last Admin: 01/22/21 17:06 Dose: 5 mg Documented by: Metoprolol Tartrate (Metoprolol Tartrate 25 Mg Tab) 12.5 mg PO Q12H [facility] Last Admin: 01/23/21 08:14 Dose: 12.5 mg Documented by: Metoprolol Tartrate (Metoprolol Tartrate 25 Mg Tab) 25 mg PO ONETIME ONE Stop: 01/23/21 16:03 Last Admin: 01/23/21 16:20 Dose: 25 mg Documented by: Metoprolol Tartrate (Metoprolol Tartrate 25 Mg Tab) 12.5 mg PO ONETIME ONE Stop: 01/23/21 18:23 Last Admin: 01/23/21 18:55 Dose: 12.5 mg Documented by: Olanzapine (Olanzapine 5 Mg Tab) 5 mg PO ONETIME ONE Stop: 01/25/21 02:39 Last Admin: 01/25/21 02:50 Dose: 5 mg Documented by: Potassium Chloride (Potassium Chloride 20 Meq Tab.Er) 40 meq PO ONETIME ONE Stop: 01/22/21 12:21 Last Admin: 01/22/21 13:17 Dose: 40 meq Documented by: Potassium Chloride (Potassium Chloride 20 Meq Tab.Er) 40 meq PO ONETIME ONE Stop: 01/22/21 16:01 Last Admin: 01/22/21 17:04 Dose: 40 meq Documented by: Potassium Chloride (Potassium Chloride 20 Meq Tab.Er) 40 meq PO ONETIME ONE Stop: 01/24/21 10:28 Last Admin: 01/24/21 10:45 Dose: 40 meq Documented by: Potassium Chloride (Potassium Chloride 20 Meq Tab.Er) 20 meq PO ONETIME ONE Stop: 01/26/21 10:44 Last Admin: 01/26/21 11:27 Dose: 20 meq Documented by: Quetiapine Fumarate (Quetiapine 25 Mg Tab) 6.25 mg PO BEDTIME [facility] Last Admin: 01/26/21 20:15 Dose: 6.25 mg Documented by: Vancomycin HCl (Pharmacy To Dose - Vancomycin) 0 dose .XX ASDIRECTED PRN PRN Reason: RX TO DOSE VANCOMYCIN - Exam Quality Assessment: Reports: DVT Prophylaxis. Denies: Supplemental Oxygen General: Reports: Alert, Oriented, Cooperative, No Acute Distress HEENT: Reports: Pupils Equal, Pupils Reactive, Mucous Membr. Moist/[place] Neck: Reports: Supple, Trachea Midline Lungs: Reports: Clear to Auscultation, Normal Respiratory Effort Cardiovascular: Reports: Regular Rate, Irregular Rhythm GI/Abdominal Exam: Normal Bowel Sounds, Soft, Non-Tender, No Distention (Male) Exam: Deferred Rectal (Males) Exam: Deferred Back Exam: Reports: Normal Inspection, Full Range of Motion Extremities: Normal Inspection, Normal Range of Motion, Non-Tender, No Pedal Edema, Normal Capillary Refill Skin: Reports: Warm, Dry, Intact Neurological: Reports: No New Focal Deficit Psy/Mental Status: Reports: Alert, Normal Affect, Normal Mood <Joe Roe Jr - Last Filed: 01/28/21 16:48> Discharge Summary - Referral to Home Health Primary Care Physician: Quita Robles MD - Patient Summary/Data Consults: Consultations 01/22/21 12:03 Consult to Case Management/Buyer Renter [CONS] Routine Consult to Furniture Associate [CONS] Routine 01/23/21 10:38 OT Evaluation and Treatment [CONS] Routine PT Evaluation and Treatment [CONS] Routine 01/23/21 11:08 Consult to Respiratory Therapy [Respiratory Care Assess and Treatment] [CONS] Routine - Discharge Summary/Plan Comment Discharge Summary/Plan Comment: Case reviewed and discussed in full. Agree with evaluation, assessment and plan. - Patient Data Vitals - Most Recent: Last Vital Signs Temp 97.0 F 01/28/21 07:53 Pulse 101 H 01/28/21 08:38 Resp 18 01/28/21 07:53 BP 129/91 H 01/28/21 08:38 Pulse Ox 99 01/28/21 07:53 I&O - Last 24 hours: Intake & Output 01/28/21 01/28/21 01/28/21 06:59 14:59 22:59 Intake Total 500 Output Total 650 Balance -150 Lab Results - Last 24 hrs: Laboratory Results - last 24 hr 01/27/21 01/27/21 01/28/21 Range/Units 17:23 20:47 05:02 WBC 10.70 H (4.23-9.07) K/mm3 RBC 4.35 L (4.63-6.08) M/mm3 Hgb 12.8 L (13.7-17.5) gm/dl Hct 41.2 (40.1-51.0) % MCV 94.7 H (79.0-92.2) fl MCH 29.4 (25.7-32.2) pg MCHC 31.1 L (32.2-35.5) g/dl RDW Std Deviation 52.2 H (35.1-43.9) fL Plt Count 314 (163-337) K/mm3 MPV 10.7 (9.4-12.3) fl POC Glucose 120 H 117 H (70-99) mg/dL Free T4 (0.76-1.46) ng/dL TSH 3rd Generation (0.358-3.74) uIU/mL 01/28/21 01/28/21 Range/Units 05:02 08:10 WBC (4.23-9.07) K/mm3 RBC (4.63-6.08) M/mm3 Hgb (13.7-17.5) gm/dl Hct (40.1-51.0) % MCV (79.0-92.2) fl MCH (25.7-32.2) pg MCHC (32.2-35.5) g/dl RDW Std Deviation (35.1-43.9) fL Plt Count (163-337) K/mm3 MPV (9.4-12.3) fl POC Glucose 86 (70-99) mg/dL Free T4 1.05 (0.76-1.46) ng/dL TSH 3rd Generation 5.562 H (0.358-3.74) uIU/mL [facility]BO Results - Last 24 hrs: Microbiology 01/22/21 09:26 Blood Culture - Final Blood - Venous - Lab Draw 01/22/21 09:10 Blood Culture - Final Blood - Venous - Lab Draw Med Orders - Current: Current Medications Discontinued Medications Acetaminophen (Acetaminophen 325 Mg Tab) 650 mg PO Q4H PRN PRN Reason: Pain (Mild 1-3)/fever Apixaban (Apixaban 5 Mg Tab) 5 mg PO BID [facility] Last Admin: 01/28/21 08:38 Dose: 5 mg Documented by: Diltiazem HCl (Diltiazem 120 Mg Cap.Cd) 120 mg PO ONETIME ONE Stop: 01/22/21 06:37 Last Admin: 01/22/21 06:55 Dose: 120 mg Documented by: Diltiazem HCl (Diltiazem 180 Mg Cap.Cd) 360 mg PO DAILY [facility] Last Admin: 01/28/21 08:38 Dose: 360 mg Documented by: Docusate Sodium (Docusate Sodium 100 Mg Cap) 100 mg PO DAILY PRN PRN Reason: Constipation Last Admin: 01/22/21 18:00 Dose: 100 mg Documented by: Famotidine (Famotidine 20 Mg Tab) 20 mg PO DAILY [facility] Last Admin: 01/27/21 08:39 Dose: 20 mg Documented by: Furosemide (Furosemide 40 Mg Tab) 40 mg PO ONETIME ONE Stop: 01/22/21 06:50 Last Admin: 01/22/21 06:56 Dose: 40 mg Documented by: Furosemide (Furosemide 40 Mg/4 Ml Vial) 40 mg IVPUSH NOW ONE Stop: 01/22/21 08:26 Last Admin: 01/22/21 08:35 Dose: 40 mg Documented by: Furosemide (Furosemide 20 Mg Tab) 40 mg PO BID [facility] Last Admin: 01/25/21 08:40 Dose: 40 mg Documented by: Hydromorphone HCl (Hydromorphone 0.5 Mg/0.5 Ml Syringe) 0.5 mg IVPUSH Q2H PRN PRN Reason: Pain (severe 7-10) Diltiazem HCl 100 mg/ Sodium (Chloride) 100 mls @ 5 mls/hr IV TITRATE JEMIMA; Protocol Last Admin: 01/22/21 08:35 Dose: 5 mg/hr, 5 mls/hr Documented by: Ceftriaxone Sodium 2 gm/ (Sodium Chloride) 100 mls @ 200 mls/hr IV ONETIME ONE Stop: 01/22/21 09:04 Last Admin: 01/22/21 08:43 Dose: 200 mls/hr Documented by: Azithromycin 500 mg/ Sodium (Chloride) 250 mls @ 250 mls/hr IV ONETIME ONE Stop: 01/22/21 10:04 Last Admin: 01/22/21 09:28 Dose: 250 mls/hr Documented by: Furosemide 100 mg/ Sodium (Chloride) 100 mls @ 5 mls/hr IV CONTINUOUS JEMIMA; Protocol Azithromycin 500 mg/ Sodium (Chloride) 250 mls @ 250 mls/hr IV Q24H [facility] Last Admin: 01/22/21 13:55 Dose: Not Given Documented by: Ceftriaxone Sodium 2 gm/ (Sodium Chloride) 100 mls @ 200 mls/hr IV ONETIME ONE Stop: 01/22/21 12:46 Last Admin: 01/22/21 13:03 Dose: 200 mls/hr Documented by: Furosemide 100 mg/ Sodium (Chloride) 100 mls @ 5 mls/hr IV CONTINUOUS JEMIMA; Protocol Last Admin: 01/22/21 13:15 Dose: 5 ml/hr, 5 mls/hr Documented by: Azithromycin 500 mg/ Sodium (Chloride) 250 mls @ 250 mls/hr IV Q24H [facility] Ceftriaxone Sodium 1 gm/ (Sodium Chloride) 100 mls @ 200 mls/hr IV Q24H [facility] Magnesium Sulfate/Dextrose 1 (gm/ Premix) 100 mls @ 100 mls/hr IV ONETIME ONE Stop: 01/22/21 18:14 Last Admin: 01/22/21 17:25 Dose: 100 mls/hr Documented by: Piperacillin Sod/Tazobactam (Sod 4.5 gm/ Sodium Chloride) 100 mls @ 25 mls/hr IV Q8H [facility] Last Admin: 01/28/21 10:20 Dose: Not Given Documented by: Piperacillin Sod/Tazobactam (Sod 4.5 gm/ Sodium Chloride) 100 mls @ 200 mls/hr IV ONETIME ONE Stop: 01/22/21 18:29 Last Admin: 01/22/21 17:25 Dose: 200 mls/hr Documented by: Lactated Ringer's (Ringers, Lactated) 250 mls @ 125 mls/hr IV ASDIRECTELY[facility] Last Admin: 01/22/21 17:30 Dose: 125 mls/hr Documented by: Vancomycin HCl 1 gm/Vancomycin HCl 500 mg/ Sodium Chloride 500 mls @ 250 mls/hr IV ONETIME ONE Stop: 01/22/21 20:59 Last Admin: 01/22/21 18:33 Dose: 250 mls/hr Documented by: Vancomycin HCl 1 gm/Vancomycin HCl 250 mg/ Sodium Chloride 250 mls @ 157 mls/hr IV Q24H [facility] Last Admin: 01/23/21 18:50 Dose: 157 mls/hr Documented by: Lactated Ringer's (Ringers, Lactated) 500 mls @ 250 mls/hr IV ONETIME ONE Stop: 01/23/21 00:46 Last Admin: 01/22/21 23:00 Dose: 250 mls/hr Documented by: Lactated Ringer's (Ringers, Lactated) 1,000 mls @ 100 mls/hr IV ASDIRECTED [facility] Last Admin: 01/23/21 01:17 Dose: 100 mls/hr Documented by: Lactated Ringer's (Ringers, Lactated) 1,000 mls @ 75 mls/hr IV ASDIRECTED [facility] Last Admin: 01/23/21 08:13 Dose: 75 mls/hr Documented by: Insulin Human Lispro (Insulin Lispro 100 Unit/Ml 10 Ml Vial) 0 unit SUBCUT QIDACANDBED [facility]; Protocol Last Admin: 01/28/21 08:39 Dose: Not Given Documented by: Meclizine HCl (Meclizine 12.5 Mg Tab) 12.5 mg PO ONETIME ONE Stop: 01/22/21 06:44 Last Admin: 01/22/21 06:55 Dose: 12.5 mg Documented by: Melatonin (Melatonin 3 Mg Tab) 3 mg PO BEDTIME PRN PRN Reason: Sleep Last Admin: 01/24/21 20:16 Dose: 3 mg Documented by: Melatonin (Melatonin 3 Mg Tab) 6 mg PO BEDTIME [facility] Last Admin: 01/27/21 20:02 Dose: 6 mg Documented by: Metoprolol Succinate (Metoprolol Succinate 50 Mg Tab.Er) 75 mg PO ONETIME ONE Stop: 01/22/21 06:37 Last Admin: 01/22/21 06:54 Dose: 75 mg Documented by: Metoprolol Succinate (Metoprolol Succinate 25 Mg Tab.Er) 12.5 mg PO ONETIME ONE Stop: 01/22/21 19:08 Last Admin: 01/22/21 19:38 Dose: 12.5 mg Documented by: Metoprolol Succinate (Metoprolol Succinate 25 Mg Tab.Er) 25 mg PO ONETIME ONE Stop: 01/22/21 22:08 Last Admin: 01/22/21 22:21 Dose: 25 mg Documented by: Metoprolol Succinate (Metoprolol Succinate 25 Mg Tab.Er) 12.5 mg PO ONETIME ONE Stop: 01/23/21 22:25 Last Admin: 01/23/21 22:35 Dose: 12.5 mg Documented by: Metoprolol Succinate (Metoprolol Succinate 25 Mg Tab.Er) 25 mg PO DAILY [facility] Last Admin: 01/24/21 08:39 Dose: 25 mg Documented by: Metoprolol Succinate (Metoprolol Succinate 50 Mg Tab.Er) 50 mg PO ONETIME ONE Stop: 01/24/21 11:38 Last Admin: 01/24/21 11:43 Dose: 50 mg Documented by: Metoprolol Succinate (Metoprolol Succinate 50 Mg Tab.Er) 75 mg PO DAILY [facility] Last Admin: 01/27/21 08:39 Dose: 75 mg Documented by: Metoprolol Succinate (Metoprolol Succinate 50 Mg Tab.Er) 100 mg PO DAILY [facility] Last Admin: 01/28/21 08:38 Dose: 100 mg Documented by: Metoprolol Succinate (Metoprolol Succinate 25 Mg Tab.Er) 25 mg PO ONETIME ONE Stop: 01/27/21 12:31 Last Admin: 01/27/21 13:21 Dose: 25 mg Documented by: Metoprolol Tartrate (Metoprolol Tartrate 5 Mg/5 Ml Sdv) 5 mg IV Q6H PRN PRN Reason: Tachycardia Last Admin: 01/22/21 17:06 Dose: 5 mg Documented by: Metoprolol Tartrate (Metoprolol Tartrate 5 Mg/5 Ml Sdv) 5 mg IV Q4H PRN PRN Reason: Tachycardia Metoprolol Tartrate (Metoprolol Tartrate 25 Mg Tab) 12.5 mg PO Q12H [facility] Last Admin: 01/23/21 08:14 Dose: 12.5 mg Documented by: Metoprolol Tartrate (Metoprolol Tartrate 25 Mg Tab) 25 mg PO ONETIME ONE Stop: 01/23/21 16:03 Last Admin: 01/23/21 16:20 Dose: 25 mg Documented by: Metoprolol Tartrate (Metoprolol Tartrate 25 Mg Tab) 12.5 mg PO ONETIME ONE Stop: 01/23/21 18:23 Last Admin: 01/23/21 18:55 Dose: 12.5 mg Documented by: Olanzapine (Olanzapine 5 Mg Tab) 5 mg PO ONETIME ONE Stop: 01/25/21 02:39 Last Admin: 01/25/21 02:50 Dose: 5 mg Documented by: Oxycodone HCl (Oxycodone 5 Mg Tab) 5 mg PO Q4H PRN PRN Reason: Pain (moderate 4-6) Potassium Chloride (Potassium Chloride 20 Meq Tab.Er) 40 meq PO ONETIME ONE Stop: 01/22/21 12:21 Last Admin: 01/22/21 13:17 Dose: 40 meq Documented by: Potassium Chloride (Potassium Chloride 20 Meq Tab.Er) 40 meq PO ONETIME ONE Stop: 01/22/21 16:01 Last Admin: 01/22/21 17:04 Dose: 40 meq Documented by: Potassium Chloride (Potassium Chloride 20 Meq Tab.Er) 40 meq PO ONETIME ONE Stop: 01/24/21 10:28 Last Admin: 01/24/21 10:45 Dose: 40 meq Documented by: Potassium Chloride (Potassium Chloride 10 Meq Tab.Er) 10 meq PO DAILY [facility] Last Admin: 01/28/21 08:38 Dose: 10 meq Documented by: Potassium Chloride (Potassium Chloride 20 Meq Tab.Er) 20 meq PO ONETIME ONE Stop: 01/26/21 10:44 Last Admin: 01/26/21 11:27 Dose: 20 meq Documented by: Quetiapine Fumarate (Quetiapine 25 Mg Tab) 6.25 mg PO BEDTIME [facility] Last Admin: 01/26/21 20:15 Dose: 6.25 mg Documented by: Quetiapine Fumarate (Quetiapine 25 Mg Tab) 12.5 mg PO BEDTIME [facility] Last Admin: 01/27/21 20:03 Dose: 12.5 mg Documented by: Sodium Chloride (Sodium Chloride 0.9% 10 Ml Syringe) 10 ml FLUSH ASDIRECTED PRN PRN Reason: Keep Vein Open Last Admin: 01/22/21 06:55 Dose: 10 ml Documented by: Vancomycin HCl (Pharmacy To Dose - Vancomycin) 0 dose .XX ASDIRECTED PRN PRN Reason: RX TO DOSE VANCOMYCIN
== END 2021-01-28 12:20 | disposition home or self-care (01) | DRG 871 ==
LOC: JD.ED 05:58 → JD.ICU 10:50 → UNDOADMIN 10:50 → JD.MS 10:50 → JD.ICU 01-23 09:00 → UNDOADMIN 01-23 09:00 → JD.ICU 01-23 20:30 → UNDODISIN 01-28 12:20
PROVIDERS: ADMIT Hospitalist; ATTEND Hospitalist
DX: A41.9 Sepsis, unspecified organism (principal); J18.9 Pneumonia, unspecified organism; N17.9 Acute kidney failure, unspecified; H54.7 Unspecified visual loss; E87.1 Hypo-osmolality and hyponatremia; E87.2 Acidosis; Z66 Do not resuscitate; I48.91 Unspecified atrial fibrillation; R65.20 Severe sepsis without septic shock; Z20.822 Contact with and (suspected) exposure to COVID-19; E87.6 Hypokalemia; E03.8 Other specified hypothyroidism; I50.9 Heart failure, unspecified; E11.9 Type 2 diabetes mellitus without complications; Z96.653 Presence of artificial knee joint, bilateral; Z87.448 Personal history of other diseases of urinary system; Z87.891 Personal history of nicotine dependence; Z79.01 Long term (current) use of anticoagulants; Z79.84 Long term (current) use of oral hypoglycemic drugs; Z79.899 Other long term (current) drug therapy
CPT/HCPCS: 36415; 70450; 71045; 80053; 83605; 83880; 84145; 84484; 85025; 87040 ×2; 87070; 87205; 93005; 96365; 96367; 96368; 96375; 99285; A9270 ×4; J0456; J0696; J1940; J3490; J7050; U0002; 71046; 71046-26; 76705; 76705-26; 80048; 81001; 82140; 82947; 83036; 83735; 84132; 84439; 84443; 84481; 85027; 86140; 93010; 94667; 94668; 97161-GP; 99223; 99233; 99239; 99284; J1815-GY; J2543; J3370; J3475; J7040; J7120

== ENCOUNTER 2023-05-17 17:11 | Emergency (ER) | payer MEDICARE, OTHER ==
[2023-05-17] MEDS ORDERED: cefTRIAXone 2 GM in Sodium Chloride 0.9% 100 ML IV ONE (19:31)
[2023-05-17] MEDS ORDERED: Doxycycline Monohydrate 100 MG Cap PO ONE (19:45)
[2023-05-17 19:59] LABS: HEMATOCRIT 41.6 % (42.0-52.0); HEMOGLOBIN 13.3 gm/dl (14.0-18.0); MEAN CORPUSCULAR HEMOGLOBIN 29.6 pg (28.0-32.0); MEAN CORPUSCULAR VOLUME 92.4 fl (83.0-99.0); PLATELET COUNT,PLT 242 K/mm3 (150-400); WHITE BLOOD CELL COUNT,WBC 15.34 K/mm3 (3.9-11.3)
[2023-05-17 20:30] LABS: A/G RATIO 0.7 (1-2); ALBUMIN 3.6 g/dl (3.4-5.0); ANION GAP 14.6 (5-15); BILIRUBIN TOTAL 0.6 mg/dL (0.2-1.0); BUN/CREATININE RATIO 19.4 (14-18); C-REACTIVE PROTEIN 10.2 mg/dL (<1.0); CALCIUM 9.5 mg/dL (8.5-10.1); CREATININE 1.6 mg/dL (0.7-1.3); EST CRCL DRUG DOSING (CG) 40.38 mL/min; MAGNESIUM 2.1 mg/dL (1.8-2.4); POTASSIUM,K 4.6 mEq/L (3.5-5.1); PROTEIN TOTAL,TP 8.5 g/dl (6.4-8.2)
[2023-05-17 20:44] LABS: BAND PERCENT MAN 1 % (0-10); BASOPHILS PERCENT MAN 0 (0.2-1.2); EOSINOPHILS PERCENT MAN 0 % (0.8-7.0); LYMPHOCYTES % ATYPICAL MANUAL 7 %; LYMPHOCYTES PERCENT MAN 7 % (20-40); MONOCYTES PERCENT MAN 6 % (2-10)
[2023-05-17 20:46] LABS: PLATELET COUNT ESTIMATE ADEQUATE
== END 2023-05-17 21:43 | disposition home or self-care (01) ==
LOC: JD.ED 17:11
DX: L03.811 Cellulitis of head [any part, except face] (principal); L13.1 Subcorneal pustular dermatitis; Z79.899 Other long term (current) drug therapy; Z87.891 Personal history of nicotine dependence; Z79.2 Long term (current) use of antibiotics
CPT/HCPCS: 36415; 71045; 80053; 83735; 83880; 84484; 85007; 85027; 86140; 93005; 96365; 99283; A9270; J0696; J3490; 93010

== ENCOUNTER 2024-08-10 09:37 | Day surgery (SDC) | payer MEDICARE, OTHER ==
[~2024-08-10 09:37] MED LIST: Sodium Chloride 0.9% 10 ML Syringe FLUSH PRN; Sodium Chloride 0.9% 10 ML Syringe FLUSH SCH
[2024-08-10] MEDS: Lactated Ringers 1,000 ML IV SCH (10:20)
[2024-08-10] MEDS ORDERED: Lidocaine 1% 4 ML ONE (11:08)
[2024-08-10] MEDS ORDERED: Propofol 200 MG/20 ML SDV ONE (11:08)
== END 2024-08-10 12:22 | disposition home or self-care (01) ==
LOC: JD.SDS 09:37
PROVIDERS: ATTEND Surgery
DX: Z12.11 Encounter for screening for malignant neoplasm of colon (principal); R19.5 Other fecal abnormalities; D12.8 Benign neoplasm of rectum; K52.9 Noninfective gastroenteritis and colitis, unspecified; K64.8 Other hemorrhoids; I12.9 Hypertensive chronic kidney disease with stage 1 through stage 4 chronic kidney disease, or unspecified chronic kidney disease; E11.22 Type 2 diabetes mellitus with diabetic chronic kidney disease; N18.30 Chronic kidney disease, stage 3 unspecified; I25.10 Atherosclerotic heart disease of native coronary artery without angina pectoris; E78.00 Pure hypercholesterolemia, unspecified; K21.9 Gastro-esophageal reflux disease without esophagitis; F41.1 Generalized anxiety disorder; Z87.891 Personal history of nicotine dependence; Z79.4 Long term (current) use of insulin; Z79.84 Long term (current) use of oral hypoglycemic drugs; Z79.82 Long term (current) use of aspirin; Z79.899 Other long term (current) drug therapy
CPT/HCPCS: 45380; 82947; J2003; J2704; J7120; 00811; 88305; 99100